=== PATIENT | female | born 1970 | race Two or more races ===

== ENCOUNTER 2020-03-14 08:38 | Emergency (ER) | payer MEDICAID, SELFPAY ==
[2020-03-14 08:45] VITALS: BP 118/61; PULSE 81; RESP 17; TEMP 36.4; O2SAT 100; BMI 23.3
--- NOTE | 2020-03-14 08:48 | XR_ITS ---
EXAMINATION: XR ANKLE, RIGHT CLINICAL INFORMATION: Sprained ankle. Pain. COMPARISON: None TECHNIQUE: AP, lateral, and mortise views of the right ankle. FINDINGS: There is a small avulsion fracture tip of lateral malleolus with moderate lateral malleolar soft tissue swelling. No additional fractures seen. The ankle mortise and subtalar joints are normal. XR/XR ankle RT min 3V IMPRESSION: Small avulsion fracture tip of lateral malleolus with moderate lateral malleolar soft tissue swelling.
[2020-03-14] MEDS: Ibuprofen 600 MG TABLET PO (08:59)
--- NOTE | 2020-03-14 09:03 | ED.LOWEXIN ---
HPI - Extremity Injury (Lower) General Chief Complaint: Extremity Injury, Lower Stated Complaint: ankle injury Time Seen by Provider: 03/14/20 08:45 Source: patient Mode of arrival: ambulatory Limitations: no limitations History of Present Illness HPI Narrative: patient comes to emergency room complaining of right-sided ankle pain. 2 hours prior to arrival patient was walking down her basement, missed a step and sprain her ankle. Patient has been unable to bear weight since then. Patient states she had to drag herself up the stairs, called her and brought her to the emergency room. Patient denies hitting her head, no loss of consciousness, patient denies being on blood thinners. Related Data Previous Rx's Medication Instructions Recorded acetaminophen [Tylenol] 650 mg PO Q6H PRN #14 tab 03/14/20 Allergies Allergy/AdvReac Type Severity Reaction Status Date / Time indomethacin [From INDOCIN] Allergy Unknown RASH Verified 03/14/20 08:48 Review of Systems Review of Systems: Constitutional : No Weight loss, No Fever, No Chills, No Night Sweats, No Fatigue, No Malaise ENT/Mouth : No Hearing loss, No Ear Pain, No Nasal Congestion, No Sinus Pain, No Hoarseness, No sore throat, No Rhinorrhea, No Swallowing Difficulty Eyes: No Eye Pain, No Swelling, No Redness, No Foreign Body, No Discharge, No Vision Changes Cardiovascular : No Chest Pain, No SOB, No Dyspnea on Exertion, No Orthopnea, No Edema, No Palpitations Respiratory : No Cough, No Sputum, No Wheezing, No Smoke Exposure, No Dyspnea Gastrointestinal : No Nausea, No Vomiting, No Diarrhea, No Constipation, No abdominal Pain, No Hematochezia, No Melena Genitourinary : no irregular bleeding, No Dysuria, No Urinary Frequency, No Hematuria, No Urinary Incontinence, No Urgency, No Flank Pain, No Urinary Flow Changes, No Hesitancy Musculoskeletal : Right ankle pain and mild swelling Skin : No Skin Lesions, No rash Neuro : No Weakness, No Numbness, No Paresthesias, No Loss of Consciousness, No Dizziness, No Headache Psych : No Anxiety/Panic, No Depression, No SI/HI/AH/VH, No Social Issues, Heme/Lymph: No Bruising, No Bleeding,No Lymphadenopathy Endocrine : No Polyuria, No Polydipsia, No Temperature Intolerance Yes Unobtainable due to mental status PMFSH Past Medical History Medical History Arthritis Social History Social History Advance Directives: No Advance Directives Information Provided: No Physical Exam Vital Signs: Vital Signs: Vital Signs Temp Pulse Resp BP Pulse Ox 03/14/20 08:45 97.6 F 81 17 118/61 100 Body Mass Index 23.3 Appearance: Alert. Oriented X3. No acute distress. Eyes: Pupils equal, round and reactive to light. ENT: Pharynx normal. Neck: Normal inspection. Neck supple. No lymph nodes noted. No crepitus CVS: Normal heart rate and rhythm. Pulses normal. Normal S1 and S2 Respiratory: No respiratory distress. Breath sounds normal. No Wheezing. No rales Abdomen: Soft and nontender. No rigidity. No distention. good BS x4 Skin: Skin warm and dry. Normal skin color. Normal skin turgor. Extremities: right ankle swelling on the lateral side, pain to palpation over the lateral malleolus, unable to bear weight Neuro: Oriented X 3. No motor deficit. No sensory deficit. Moving all extermities. No slurred speech. Course Reevaluation(s) Reevaluation #1: I discussed with the patient that she has a small avulsion fracture at the tip of the lateral malleolus. MDM - Extremity Injury (Lower) MDM Narrative Medical decision making narrative: patient will be discharged home with instructions to follow up with Orthopedics, Tylenol and ibuprofen. Patient was placed in a posterior splint, provided with crutches Imaging Data Ankle x-ray: Radiologist's impression: There is a small avulsion fracture tip of lateral malleolus with moderate lateral malleolar soft tissue swelling. No additional fractures seen. The ankle mortise and subtalar joints are normal. Discharge Plan Discharge Clinical Impression: Ankle fracture, lateral malleolus, closed Qualifiers: Encounter type: initial encounter Fracture alignment: nondisplaced Laterality: right Qualified Code(s): S82.64XA - Nondisplaced fracture of lateral malleolus of right fibula, initial encounter for closed fracture Patient Disposition: Home, Self-Care Instructions: Ankle Fracture (ED) Additional Instructions: please call the orthopedics office to schedule an appointment. Please follow-up with your primary care physician tomorrow. If you have any worsening or new symptoms, please return to the emergency room or call 911 Prescriptions: New acetaminophen [Tylenol] 325 mg tablet 650 mg PO Q6H PRN (Reason: pain) Qty: 14 RF: 0 Referrals: Constantino Maya MD [Physician] - 2 days
== END 2020-03-14 11:22 | disposition home or self-care (01) ==
PROVIDERS: Emergency Provider Emergency Medicine
DX: S82.61XA Displaced fracture of lateral malleolus of right fibula, initial encounter for closed fracture (principal); W10.9XXA Fall (on) (from) unspecified stairs and steps, initial encounter; Y93.01 Activity, walking, marching and hiking; Y92.009 Unspecified place in unspecified non-institutional (private) residence as the place of occurrence of the external cause
CPT/HCPCS: 73610; 99282; 99283

== ENCOUNTER → 2020-03-20 13:38 | Outpatient (BNVA) | payer MEDICAID, SELFPAY | PROVIDERS: PCP Internal Medicine; Referring Provider Internal Medicine; Visit Provider Orthopaedic Surgery | DX: S82.61XD Displaced fracture of lateral malleolus of right fibula, subsequent encounter for closed fracture with routine healing (principal) | CPT/HCPCS: 99212 ==

== ENCOUNTER 2020-11-28 08:59 | Outpatient (REF) | payer MEDICAID, SELFPAY | END 2020-11-28 09:00 | disposition home or self-care (01) | LOC: HO.LAB 08:59 | PROVIDERS: PCP Internal Medicine; Visit Provider Obstetrics & Gynecology | DX: N90.7 Vulvar cyst (principal) | CPT/HCPCS: 10060; 56405; 87071; 87205 ==

== ENCOUNTER 2021-08-15 14:30 | Outpatient (REF) | payer MEDICAID, SELFPAY ==
[2021-08-15 15:44] LABS: Hematocrit 32.1 % (37.0-47.0); Hemoglobin 9.8 g/dl (12.0-16.0); Mean Corpuscular HGB Conc 30.5 g/dl (31.0-35.0); Mean Corpuscular Hemoglobin 23.9 pg (27.0-33.0); Mean Corpuscular Volume 78.3 fL (80.0-98.0); Mean Platelet Volume 10.9 fL (9.4-12.3); Platelet Count 246 X10*3/uL (160-400); Red Cell Distribution Width 14.5 % (11.0-16.0); White Blood Count 7.2 X10*3/uL (4.8-10.8)
[2021-08-15 16:47] LABS: HCG Quantitative < 2 mIU/mL; TSH reflex Free T4 2.36 uIU/mL (0.32-4.0)
[2021-08-16 06:57] LABS: CT PCR NOT DETECTED (Not Detect.); NG PCR NOT DETECTED (Not Detect.)
[2021-08-20 21:02] LABS: HPV mRNA E6/E7 rflx Not Detected (Not Detected)
== END 2021-08-15 14:31 | disposition home or self-care (01) ==
LOC: HO.LAB 14:30
PROVIDERS: PCP Internal Medicine; Visit Provider Obstetrics & Gynecology
DX: Z01.411 Encounter for gynecological examination (general) (routine) with abnormal findings (principal); Z11.51 Encounter for screening for human papillomavirus (HPV); N93.9 Abnormal uterine and vaginal bleeding, unspecified
CPT/HCPCS: 36415; 84443; 84702; 85027; 87491; 87591; 87624; 88142; 99212

== ENCOUNTER 2021-08-28 09:10 | Outpatient (REF) | payer MEDICAID, SELFPAY | END 2021-08-28 09:11 | disposition home or self-care (01) | LOC: HO.LAB 09:10 | PROVIDERS: PCP Internal Medicine; Visit Provider Obstetrics & Gynecology | DX: N93.9 Abnormal uterine and vaginal bleeding, unspecified (principal) | CPT/HCPCS: 58100; 81025; 88305 ==

== ENCOUNTER 2021-09-10 11:17 | Outpatient (REF) | payer MEDICAID, SELFPAY ==
--- NOTE | ~2021-09-10 | US_ITS ---
EXAMINATION: US PELVIS CLINICAL INFORMATION: Abnormal uterine and vaginal bleeding COMPARISON: None TECHNIQUE: Ultrasound of the pelvis is performed using both transabdominal and transvaginal transducers along with Doppler. Transvaginal imaging is performed due to inadequate visualization transabdominally. FINDINGS: Uterus: The uterus is anteverted, anteflexed and measures 9.4 x 5.1 x 6.8 cm The double wall endometrial thickness is 1.1 CM. The uterus is smooth in contour and has normal myometrial echogenicity. There are 2 hypoechoic lesions in lower anterior uterine body measuring 2.8 x 3.6 x 2.9 cm and 0.6 x 0.6 x 0.7 seen. There are small nabothian cysts seen in cervix. Adnexa: Both ovaries are visualized. There is normal color flow to the adnexa. There is no ovarian torsion. There is no pelvic ascites or fluid collection. Right ovary measures 2.0 x 1.3 x 1.4 CM and volume 1.9 mL. Left ovary measures 2.1 x 1.4 x 1.5 cm and volume 2.3 mL. US/US pelvic and transvaginal IMPRESSION: 2 uterine fibroids and lower anterior uterine body as described above. The ovaries are unremarkable. Small nabothian cysts seen in cervix.
== END 2021-09-10 11:18 | disposition home or self-care (01) ==
LOC: HO.US 11:17
PROVIDERS: Visit Provider Obstetrics & Gynecology
DX: N93.9 Abnormal uterine and vaginal bleeding, unspecified (principal)
CPT/HCPCS: 76830; 76856

== ENCOUNTER → 2021-09-13 09:49 | Outpatient (BNVA) | payer MEDICAID, SELFPAY | PROVIDERS: PCP Internal Medicine; Visit Provider Obstetrics & Gynecology | DX: N93.9 Abnormal uterine and vaginal bleeding, unspecified (principal); N88.8 Other specified noninflammatory disorders of cervix uteri | CPT/HCPCS: 99212 ==

== ENCOUNTER 2021-12-31 08:47 | Outpatient (REF) | payer MEDICAID, SELFPAY ==
--- NOTE | ~2021-12-31 | MM_ITS ---
EXAMINATION: MM SCREENING DIGITAL BREAST TOMOSYNTHESIS, BILATERAL CLINICAL INFORMATION: Screening. Asymptomatic. The lifetime risk of breast cancer based on the Tyrer-Cuzick Model is 8%. COMPARISON: Mammography: 11/24/2017, 10/29/2016, 09/18/2015, 07/15/2015 TECHNIQUE: Digital breast tomosynthesis is performed in both the craniocaudal and mediolateral oblique views along with computer-aided detection (CAD). Synthesized 2D images are generated from the tomosynthesis. Additional right exaggerated CC view is provided. FINDINGS: The breasts are heterogeneously dense, which may obscure small masses (ACR BI-RADS breast composition Category c). There are no significant masses, abnormal calcifications, or other abnormalities. The axilla and skin contours are unremarkable. Biopsy clip marker again noted posterior upper right breast. There are no significant changes from prior studies. MM/MM tomosynthesis screening BI IMPRESSION: No mammographic evidence of malignancy. ASSESSMENT: BI-RADS 1: Negative RECOMMENDATION: Routine annual mammography screening. This patient's information was entered into a reminder system with a target due date for their next mammogram.
== END 2021-12-31 08:48 | disposition home or self-care (01) ==
LOC: HO.MAMMO 08:47
PROVIDERS: Visit Provider Obstetrics & Gynecology
DX: Z12.31 Encounter for screening mammogram for malignant neoplasm of breast (principal)
CPT/HCPCS: 77063; 77067

== ENCOUNTER 2022-06-12 12:22 | Outpatient (REF) | payer MEDICAID, SELFPAY ==
--- NOTE | ~2022-06-12 | US_ITS ---
EXAMINATION: US PELVIS CLINICAL INFORMATION: Benign neoplasm of connective tissue COMPARISON: Ultrasound 09/10/2021 TECHNIQUE: Ultrasound of the pelvis is performed using both transabdominal and transvaginal transducers along with Doppler. Transvaginal imaging is performed due to inadequate visualization transabdominally. FINDINGS: Uterus: The uterus is anteverted and measures 12 x 5.6 x 7.8 cm. Both hands cysts are noted. The double wall endometrial thickness is 15 mm. The uterus is smooth in contour and has normal myometrial echogenicity. Lower uterine segment myometrial fibroids are again noted. The largest is relatively isoechoic measuring 3.1 x 2.8 x 2.9 cm. There is an adjacent 0.7 cm fibroid. These are without significant change from prior. Adnexa: Both ovaries are visualized. There is normal color flow to the adnexa. There is no ovarian torsion. Trace pelvic free fluid. Right ovary measures 2.5 x 1.9 x 1.6 cm. Left ovary measures 3.1 x 3.2 x 3.3 cm. Probable hemorrhagic cyst measuring 2.4 x 2.3 x 2.1 cm. There is some peripheral nodularity which could be blood products. US/US pelvic and transvaginal IMPRESSION: Thickening of the endometrium. Correlate with phase of cycle as this may be physiologic. Unchanged uterine fibroids. Complex left ovarian cyst with some peripheral nodularity. This could be a hemorrhagic cyst, but cannot exclude soft tissue. Suggest ultrasound follow-up in 6-12 weeks.
== END 2022-06-12 12:23 | disposition home or self-care (01) ==
LOC: HO.US 12:22
PROVIDERS: PCP Internal Medicine; Visit Provider Obstetrics & Gynecology
DX: D21.9 Benign neoplasm of connective and other soft tissue, unspecified (principal)
CPT/HCPCS: 76830; 76856

== ENCOUNTER 2022-07-22 14:23 | Outpatient (REF) | payer MEDICAID, SELFPAY ==
[2022-07-23 03:13] LABS: CT PCR NOT DETECTED (Not Detect.); NG PCR NOT DETECTED (Not Detect.)
== END 2022-07-22 14:24 | disposition home or self-care (01) ==
LOC: HO.LNP 14:23
PROVIDERS: PCP Internal Medicine; Visit Provider Obstetrics & Gynecology
DX: N83.299 Other ovarian cyst, unspecified side (principal); D21.9 Benign neoplasm of connective and other soft tissue, unspecified
CPT/HCPCS: 0353U; 99212

== ENCOUNTER 2022-09-23 14:04 | Outpatient (REF) | payer MEDICAID, SELFPAY ==
--- NOTE | ~2022-09-23 | US_ITS ---
EXAMINATION: US PELVIC AND TRANSVAGINAL CLINICAL INFORMATION: Ovarian cyst. COMPARISON: Previous pelvic ultrasound most recent May 2022. TECHNIQUE: Ultrasound of the pelvis is performed using both transabdominal and transvaginal transducers along with Doppler. Transvaginal imaging is performed due to inadequate visualization transabdominally. FINDINGS: The uterus is anteverted and measures 11.5 x 5.8 x 8.1 cm in dimension. There is a 3.5 cm low-attenuation lesion in the anterior uterine body or lower uterine segment adjacent to the endometrium suggestive of a fibroid. There is a second smaller 1.3 cm low-attenuation lesion in the anterior lower uterine segment also probably representing a fibroid. Endometrial thickness is normal measuring 1.1 x 1.2 cm. There are nabothian cysts in the cervix. The ovaries are normal-appearing. The right ovary measures 3.2 x 1.8 x 1.5 cm. The left ovary is seen transabdominally and measures 2.5 x 1.5 x 2.9 cm. The previously identified left ovarian cyst on May 2022 is no longer seen. There is a small amount of fluid in the pelvis. US/US pelvic and transvaginal IMPRESSION: Small uterine fibroids. Normal-appearing ovaries. Left ovarian cyst on May 2022 exam is no longer seen.
== END 2022-09-23 14:05 | disposition home or self-care (01) ==
LOC: HO.US 14:04
PROVIDERS: Visit Provider Obstetrics & Gynecology
DX: N83.299 Other ovarian cyst, unspecified side (principal)
CPT/HCPCS: 76830; 76856

== ENCOUNTER 2022-09-24 10:40 | Emergency (ER) | payer MEDICAID, SELFPAY ==
--- NOTE | ~2022-09-24 | CT_ITS ---
EXAMINATION: CT ABDOMEN AND PELVIS WITHOUT CONTRAST CLINICAL INFORMATION: Left flank pain and hematuria COMPARISON: Previous pelvic ultrasound from yesterday and abdominal and pelvic CT from 2016 TECHNIQUE: Multidetector volumetric imaging was performed from the superior aspect of the liver through the pubic symphysis. Sagittal and coronal reformatted images were obtained on the technologist's workstation. This CT examination was performed using dose optimization techniques as appropriate, variously including the following: *Automated exposure control *Adjustment of mA and/or kV according to patient size (this includes techniques or standardized protocols for targeted exams where dose is matched to indication/reason for exam; i.e. extremities or head) *Use of iterative reconstruction technique DLP: 392 mGy-cm FINDINGS: LUNG BASES: Atelectasis or small infiltrate in the right middle lobe. LIVER, GALLBLADDER, AND BILIARY TREE: The liver is normal in size, shape, and attenuation. No focal hepatic lesion or biliary ductal dilatation is present. The gallbladder is unremarkable with no evidence of radiopaque gallstones, gallbladder wall thickening, or obvious pericholecystic inflammatory changes. PANCREAS: Unremarkable. SPLEEN: Unremarkable. ADRENAL GLANDS: Unremarkable. KIDNEYS AND URETERS: Small punctate right renal stones. No left renal stone. No left hydronephrosis, ureteral dilatation or ureteral stone. BLADDER: Unremarkable. GASTROINTESTINAL TRACT: There is stool throughout the colon questionable for mild constipation. The small and large bowel are otherwise unremarkable. The appendix is not seen. No inflammatory changes are seen in the right lower quadrant. There may be a small esophageal hernia. ABDOMINAL WALL: No significant hernia is appreciated. LYMPH NODES: Normal. VASCULAR: Unremarkable. PELVIC VISCERA: Unremarkable. OSSEOUS STRUCTURES: Unremarkable. CT/CT abdomen pelvis wo IV con IMPRESSION: Multiple small nonobstructing right renal stones. No left renal stone or hydronephrosis seen. Large amount of stool in the colon questionable for constipation. Atelectasis or small infiltrate in the right middle lobe. Fleischner guidelines were followed.
[2022-09-24 11:00] VITALS: BP 132/72; PULSE 84; RESP 16; TEMP 36.5; O2SAT 100; BMI 25.6
[2022-09-24 11:24] LABS: Appearance Urine Hazy; Color Urine RED; Glucose Urine UA Negative (Negative); Leukocyte Esterase Urine Large (3+) (Negative); Nitrite Urine Negative (Negative); Specific Gravity - Urine <= 1.005 (1.005-1.025); UMIC TRIGGER UACC YES; Urine Blood Large (3+) (Negative); Urine Ketones Negative (Negative); Urine Protein 100 (2+) mg/dL (Neg-Trace)
[2022-09-24 11:31] LABS: Bacteria Urine Trace (None Seen); Hyaline Casts Urine 0-2 /LPF (0-2); RBC Urine >20 /HPF (0-2); Squamous Epithelial Cell Urine 0-2 /HPF (0-2); UACC Culture Trigger YES; WBC Urine >50 /HPF (0-5)
[2022-09-24 12:53] LABS: MANUAL DIFF FLAG NO
[2022-09-24 12:55] LABS: Basophils Percent Auto 0.3 % (0-2); Eosinophils Absolute Auto 0.2 X10*3/uL (0.0-0.4); Eosinophils Percent Auto 1.3 % (0-4); Hematocrit 34.8 % (37.0-47.0); Imm Gran Abs Auto 0.03 X10*3/uL (0.00-0.03); Imm Gran Pct Auto 0.3 % (0.0-0.4); Lymphocytes Absolute Auto 1.6 X10*3/uL (1.2-4.9); Lymphocytes Percent Auto 13.5 % (20-40); Mean Corpuscular HGB Conc 31.6 g/dl (31.0-35.0); Mean Corpuscular Hemoglobin 25.2 pg (27.0-33.0); Mean Corpuscular Volume 79.8 fL (80.0-98.0); Mean Platelet Volume 10.6 fL (9.4-12.3); Monocytes Absolute Auto 0.7 X10*3/uL (0.1-1.2); Neutrophils Absolute Auto 9.1 x10*3/uL (2.0-8.3); Neutrophils Percent Auto 78.6 % (45-73); Platelet Count 247 X10*3/uL (160-400); Red Blood Count 4.36 X10*6/uL (4.20-5.50); Red Cell Distribution Width 14.1 % (11.0-16.0); White Blood Count 11.5 X10*3/uL (4.8-10.8)
[2022-09-24 13:08] LABS: Anion Gap 13 (12-20); Blood Urea Nitrogen 14 mg/dL (9-16); Calcium 9.4 mg/dL (8.4-10.2); Carbon Dioxide 26 mmol/L (22-29); Chloride 105 mmol/L (96-108); Creatinine Clr Calc Pharmacy 70.2; Estimated Glomerular Filt Rate > 60; Glucose Random 84 mg/dL (60-115); Potassium 4.5 mmol/L (3.3-5.1); Sodium 139 mmol/L (135-145)
[2022-09-24 13:11] LABS: Alanine Aminotransferase 12 U/L (0-31); Albumin Level 4.3 g/dL (3.5-5.0); Alkaline Phosphatase 48 U/L (39-117); Aspartate Amino Transferase 16 U/L (5-31); Bilirubin Direct 0.1 mg/dL (0.0-0.5); Bilirubin Total 0.3 mg/dL (0.0-1.0); Lipase 14 U/L (8-78); Magnesium 1.8 mg/dL (1.6-2.6); Total Protein 7.1 g/dL (6.5-8.0)
--- NOTE | 2022-09-24 18:08 | ED_ITS ---
HPI - General Adult General Chief complaint: Abdominal Pain Stated complaint: Abd pain Time Seen by Provider: 09/24/22 17:45 Source: patient, RN notes reviewed and old records reviewed Mode of arrival: ambulatory Limitations: no limitations History of Present Illness HPI narrative: 52-year-old female presents for evaluation of left flank pain, lower abdominal pain. patient reports that her symptoms started 3 days ago but got worse last night. She reports her pain is worse with urination and she has noticed blood in the urine denies any vaginal bleeding or discharge patient denies any previous abdominal surgical history her pain is 6/ Related Data Previous Rx's Medication Instructions Recorded acetaminophen 325 mg tablet 650 mg PO Q6H PRN pain #14 tabs 03/14/20 (Tylenol) ferrous sulfate 325 mg (65 mg 325 mg PO DAILY 90 days #90 tabs 09/06/21 iron) tablet,delayed release nitrofurantoin 100 mg PO Q12H 5 days #10 caps 09/24/22 monohydrate/macrocrystals 100 mg capsule (Macrobid) phenazopyridine 200 mg tablet 200 mg PO TID 6 doses #6 tabs 09/24/22 (Pyridium) Allergies Allergy/AdvReac Type Severity Reaction Status Date / Time indomethacin [From INDOCIN] Allergy Unknown RASH Verified 07/22/22 14:32 Review of Systems Constitutional: Constitutional: Reports as per HPI, Denies chills, Denies fever(s) and Denies headache(s) ENT: Denies headache(s) Cardiovascular: Cardiovascular: Denies chest pain and Denies dyspnea Respiratory: Respiratory: Denies cough and Denies dyspnea Gastrointestinal: Gastrointestinal: Reports abdominal pain, Denies constipation and Reports nausea Neurologic: Denies headache(s) and Denies focal weakness PMFSH Past Medical History Medical History Arthritis Fibula fracture Surgical History History of lumpectomy Tubal ligation status Family History Family History Father No problems noted. Mother No problems noted. Social History Social History Advance Directives: No Advance Directives Information Provided: Yes Current occupational status: unemployed Current occupation: right handed Physical Exam ED Vital Signs: Vital Signs - 24 hr 09/24/22 11:00 09/24/22 18:19 09/24/22 20:12 Temperature 97.7 F 98.6 F 98.7 F Pulse Rate 84 74 83 Respiratory Rate 16 16 16 Blood Pressure 132/72 121/66 112/71 Pulse Oximetry 100 99 96 Oxygen Delivery Method Room Air Room Air BMI result Body Mass Index 25.6 Const General: healthy appearing, comfortable, no acute distress, alert and awake Nutritional Appearance: well nourished Orientation/consciousness: patient oriented x3 HENMT Head: Yes normocephalic and Yes atraumatic Throat: Yes posterior oropharynx normal Eyes Eyelids: Yes eyelids normal Conjunctivae: conjunctivae normal Sclerae: sclerae normal Corneas: corneas normal Pupils: Equal, round and reactive pupils present EOM: EOMs intact bilaterally Neck Neck: Yes full ROM Resp Effort & Inspection: normal respiratory effort, able to speak in complete sentences, no audible wheezes and not labored Auscultation: clear to auscultation bilaterally Cardio Rate: regular rate Rhythm: regular rhythm GI Other: negative CVA tenderness on left Palpation (GI): Soft to palpation, Tenderness to palpation present (GI) in the LLQ and suprapubicly; not in the RLQ, not in the LUQ, not in the RUQ and with no rebound tenderness and no guarding Auscultation: normoactive bowel sounds Skin General skin exam: no rashes or lesions noted and elasticity normal Neuro General: patient oriented x3 Cranial nerves: Yes Equal, round and reactive pupils present and Yes Bilaterally intact EOM present Cognition (Neuro): normal cognition Extrem Other: Moving all extremities well without any obvious deformities Course Reevaluation(s) Reevaluation #1: reviewed patient's CT imaging. She has no respiratory symptoms to suggest infiltrate the middle lobe, this is likely atelectasis. Will discuss constipation with her in up to her and CT imaging results. We will treat the patient's UTI and she is stable for discharge Time: 21:07 Medical Decision Making Medical Decision Making MDM Narrative: 52-year-old female presents for evaluation of burning with urination, urinary frequency and lower abdominal pain. Her labs are consistent with a UTI. will get a CT without contrast item pelvis to rule out obstructive uropathy given the amount of hematuria. Differential Diagnosis UTI Pyelonephritis Obstructive uropathy Cystitis Lab Data 09/24/22 12:47 09/24/22 12:47 Labs: Lab Results 09/24/22 09/24/22 09/24/22 Range/Units 11:16 12:47 12:47 WBC 11.5 H (4.8-10.8) X10*3/uL RBC 4.36 (4.20-5.50) X10*6/uL Hgb 11.0 L (12.0-16.0) g/dl Hct 34.8 L (37.0-47.0) % MCV 79.8 L (80.0-98.0) fL MCH 25.2 L (27.0-33.0) pg MCHC 31.6 (31.0-35.0) g/dl RDW 14.1 (11.0-16.0) % Plt Count 247 (160-400) X10*3/uL MPV 10.6 (9.4-12.3) fL Immature Gran % (Auto) 0.3 (0.0-0.4) % Neut % (Auto) 78.6 H (45-73) % Lymph % (Auto) 13.5 L (20-40) % [place] % (Auto) 6.0 (2-11) % Eos % (Auto) 1.3 (0-4) % Baso % (Auto) 0.3 (0-2) % Lymph # (Auto) 1.6 (1.2-4.9) X10*3/uL [place] # (Auto) 0.7 (0.1-1.2) X10*3/uL Eos # (Auto) 0.2 (0.0-0.4) X10*3/uL Baso # (Auto) 0.0 (0.0-0.2) X10*3/uL Abs Immat Gran (auto) 0.03 (0.00-0.03) X10*3/uL Absolute Neuts (auto) 9.1 H (2.0-8.3) x10*3/uL Absolute Nucleated RBC 0.000 (0.0-0.012) X10*3/uL Nucleated RBC % (auto) 0.0 (0.0-0.2) /100WBC Sodium 139 (135-145) mmol/L Potassium 4.5 (3.3-5.1) mmol/L Chloride 105 (96-108) mmol/L Carbon Dioxide 26 (22-29) mmol/L Anion Gap 13 (12-20) BUN 14 (9-16) mg/dL Creatinine 0.81 (0.5-1.4) mg/dL Estim Creat Clear Calc 70.2 Estimated GFR > 60 Random Glucose 84 (60-115) mg/dL Calcium 9.4 (8.4-10.2) mg/dL Magnesium (1.6-2.6) mg/dL Total Bilirubin (0.0-1.0) mg/dL Direct Bilirubin (0.0-0.5) mg/dL AST (5-31) U/L ALT (0-31) U/L Alkaline Phosphatase (39-117) U/L Total Protein (6.5-8.0) g/dL Albumin (3.5-5.0) g/dL Lipase (8-78) U/L Urine Color RED Urine Appearance Hazy Urine pH 6.0 (5.0-9.0) Ur Specific [place] <= 1.005 (1.005-1.025) Urine Protein 100 (2+) H (Neg-Trace) mg/dL Urine Glucose (UA) Negative (Negative) mg/dL Urine Ketones Negative (Negative) mg/dL Urine Blood Large (3+) H (Negative) Urine Nitrite Negative (Negative) Ur Leukocyte Esterase Large (3+) H (Negative) Urine RBC >20 H (0-2) /HPF Urine WBC >50 H (0-5) /HPF Ur Squamous Epith Cells 0-2 (0-2) /HPF Urine Bacteria Trace (None Seen) Hyaline Casts 0-2 (0-2) /LPF 09/24/22 Range/Units 12:47 WBC (4.8-10.8) X10*3/uL RBC (4.20-5.50) X10*6/uL Hgb (12.0-16.0) g/dl Hct (37.0-47.0) % MCV (80.0-98.0) fL MCH (27.0-33.0) pg MCHC (31.0-35.0) g/dl RDW (11.0-16.0) % Plt Count (160-400) X10*3/uL MPV (9.4-12.3) fL Immature Gran % (Auto) (0.0-0.4) % Neut % (Auto) (45-73) % Lymph % (Auto) (20-40) % [place] % (Auto) (2-11) % Eos % (Auto) (0-4) % Baso % (Auto) (0-2) % Lymph # (Auto) (1.2-4.9) X10*3/uL [place] # (Auto) (0.1-1.2) X10*3/uL Eos # (Auto) (0.0-0.4) X10*3/uL Baso # (Auto) (0.0-0.2) X10*3/uL Abs Immat Gran (auto) (0.00-0.03) X10*3/uL Absolute Neuts (auto) (2.0-8.3) x10*3/uL Absolute Nucleated RBC (0.0-0.012) X10*3/uL Nucleated RBC % (auto) (0.0-0.2) /100WBC Sodium (135-145) mmol/L Potassium (3.3-5.1) mmol/L Chloride (96-108) mmol/L Carbon Dioxide (22-29) mmol/L Anion Gap (12-20) BUN (9-16) mg/dL Creatinine (0.5-1.4) mg/dL Estim Creat Clear Calc Estimated GFR Random Glucose (60-115) mg/dL Calcium (8.4-10.2) mg/dL Magnesium 1.8 (1.6-2.6) mg/dL Total Bilirubin 0.3 (0.0-1.0) mg/dL Direct Bilirubin 0.1 (0.0-0.5) mg/dL AST 16 (5-31) U/L ALT 12 (0-31) U/L Alkaline Phosphatase 48 (39-117) U/L Total Protein 7.1 (6.5-8.0) g/dL Albumin 4.3 (3.5-5.0) g/dL Lipase 14 (8-78) U/L Urine Color Urine Appearance Urine pH (5.0-9.0) Ur Specific [place] (1.005-1.025) Urine Protein (Neg-Trace) mg/dL Urine Glucose (UA) (Negative) mg/dL Urine Ketones (Negative) mg/dL Urine Blood (Negative) Urine Nitrite (Negative) Ur Leukocyte Esterase (Negative) Urine RBC (0-2) /HPF Urine WBC (0-5) /HPF Ur Squamous Epith Cells (0-2) /HPF Urine Bacteria (None Seen) Hyaline Casts (0-2) /LPF Discharge Plan Discharge Clinical Impression: UTI (urinary tract infection), Constipation Patient Disposition: Home, Self-Care Instructions: Urinary Tract Infection in Women (ED) Additional Instructions: your urine sample shows a urinary tract infection take the antibiotics as prescribed and take the Pyridium for discomfort your CT scan also showed a moderate amount of constipation you should consider increasing fluid and fiber intake in your diet you may use an [id number] stool softener such as MiraLax follow-up with your primary doctor Prescriptions: New nitrofurantoin monohyd/m-cryst [Macrobid] 100 mg capsule 100 mg PO Q12H 5 Days Qty: 10 0RF Rx Instructions: must administer with a meal/food phenazopyridine [Pyridium] 200 mg tablet 200 mg PO TID Qty: 6 0RF No Action ferrous sulfate 325 mg (65 mg iron) tablet,delayed release (DR/EC) 325 mg PO DAILY 90 Days Qty: 90 3RF acetaminophen [Tylenol] 325 mg tablet 650 mg PO Q6H PRN (Reason: pain) Qty: 14 0RF
[2022-09-24 18:19] VITALS: BP 121/66; PULSE 74; RESP 16; TEMP 37; O2SAT 99
[2022-09-24 20:12] VITALS: BP 112/71; PULSE 83; RESP 16; TEMP 37.1; O2SAT 96
== END 2022-09-24 21:30 | disposition home or self-care (01) ==
PROVIDERS: Physician Assistant; Emergency Provider Internal Medicine
DX: N39.0 Urinary tract infection, site not specified (principal); B96.20 Unspecified Escherichia coli [E. coli] as the cause of diseases classified elsewhere; K59.00 Constipation, unspecified; R10.9 Unspecified abdominal pain
CPT/HCPCS: 36415; 74176; 80048; 80076; 81001; 83690; 83735; 85025; 87086; 87088; 87186; 99283; 99284

== ENCOUNTER → 2022-10-07 15:05 | Outpatient (BNVA) | payer MEDICAID, SELFPAY | PROVIDERS: Visit Provider Obstetrics & Gynecology | DX: D21.9 Benign neoplasm of connective and other soft tissue, unspecified (principal); Z87.42 Personal history of other diseases of the female genital tract | CPT/HCPCS: 99212 ==

== ENCOUNTER 2022-10-30 10:12 | Outpatient (REF) | payer MEDICAID, SELFPAY | END 2022-10-30 10:13 | disposition home or self-care (01) | LOC: HO.LNP 10:12 | PROVIDERS: PCP Nurse Practitioner Family; Visit Provider Obstetrics & Gynecology | DX: N93.9 Abnormal uterine and vaginal bleeding, unspecified (principal); Z32.02 Encounter for pregnancy test, result negative | CPT/HCPCS: 58100; 81025; 88305 ==

== ENCOUNTER → 2022-11-20 10:38 | Outpatient (BNVA) | payer MEDICAID, SELFPAY | PROVIDERS: PCP Nurse Practitioner Family; Visit Provider Obstetrics & Gynecology | DX: N93.9 Abnormal uterine and vaginal bleeding, unspecified (principal); D21.9 Benign neoplasm of connective and other soft tissue, unspecified | CPT/HCPCS: 99212 ==

== ENCOUNTER 2023-01-03 09:00 | Outpatient (REF) | payer MEDICAID, SELFPAY ==
--- NOTE | ~2023-01-03 | MM_ITS ---
EXAMINATION: MM SCREENING DIGITAL BREAST TOMOSYNTHESIS, BILATERAL CLINICAL INFORMATION: Screening. Asymptomatic. COMPARISON: Mammography: This study is compared with prior exams dating back to 2017. TECHNIQUE: Digital breast tomosynthesis is performed in both the craniocaudal and mediolateral oblique views along with computer-aided detection (CAD). Synthesized 2D images are generated from the tomosynthesis. FINDINGS: The breasts are heterogeneously dense, which may obscure small masses (ACR BI-RADS breast composition Category c). There are no significant masses, abnormal calcifications, or other abnormalities. There is a biopsy tissue marker associated with an oval benign mass in the upper inner quadrant of the right breast. In the medial aspect of the left breast, there are grouped, coarse calcifications associated with a small benign mass. The this is financial representative of an involuting fibroadenoma. This is a benign entity. MM/MM tomosynthesis screening BI IMPRESSION: No mammographic evidence of malignancy. ASSESSMENT: BI-RADS BI-RADS 2 - Benign Findings RECOMMENDATION: Routine annual mammography screening. 1 year F/U This examination should not preclude the clinical evaluation of a suspicious palpable abnormality. This patient's information was entered into a reminder system with a target due date for their next mammogram.
== END 2023-01-03 09:01 | disposition home or self-care (01) ==
LOC: HO.MAMMO 09:00
PROVIDERS: PCP Obstetrics & Gynecology; Visit Provider Obstetrics & Gynecology
DX: Z12.31 Encounter for screening mammogram for malignant neoplasm of breast (principal)
CPT/HCPCS: 77063; 77067

== ENCOUNTER → 2023-01-03 09:15 | Outpatient (BNV) | payer MEDICAID, SELFPAY | PROVIDERS: PCP Obstetrics & Gynecology; Visit Provider Radiology Diagnostic Radiology | DX: Z12.31 Encounter for screening mammogram for malignant neoplasm of breast (principal) | CPT/HCPCS: 77063; 77067 ==

== ENCOUNTER 2023-03-03 13:12 | Outpatient (AMB) | payer MEDICAID, SELFPAY ==
--- NOTE | 2023-03-03 13:16 | A.OFFVIS_ITS ---
Intake Vital Signs 03/03/23 13:17 Height 5 ft 2 in Weight 138 lb BMI 25.2 BP 112/72 Intake Visit Reasons: Follow medication Date Night Sitter Required: Yes Date Night Sitter Language: Kennel Manager Dog Track Name: Francisca Bridges Allergies indomethacin [From INDOCIN] Allergy (Unknown, Verified 03/03/23 13:17) RASH Is last menstrual period known: No HPI HPI Comments History of Present Illness Details Presenting for 3 month follow-up, the patient did have her periods and did not start Provera. No other complaints PFSH Medical History Fibula fracture Arthritis Surgical History History of lumpectomy Tubal ligation status Family History Father No problems noted. Mother No problems noted. Social History Current occupational status: unemployed Current occupation: right handed Female Reproductive History Menstrual Age of Menarche: 9 control method: permanent sterilization Date of last pap smear: 08/17/21 (negative) Review of Systems Const All systems reviewed & are unremarkable except as noted in HPI and below Reports as per HPI and Reports no additional complaints GI Reports no additional complaints Reports no additional complaints Physical Exam Vital Signs: Last Vital Signs BP 112/72 03/03/23 13:17 BMI result Body Mass Index 25.2 Assessment & Plan Assessment & Plan (1) Myoma: Code(s): D21.9 - Benign neoplasm of connective and other soft tissue, unspecified Plan: Will order repeat ultrasound to compare the size the myomas. Instructions given the patient to schedule an ultrasound follow-up appointment in 2 weeks. (2) Amenorrhea: Code(s): N91.2 - Amenorrhea, unspecified Plan: Urine test done in the office was negative. Will order FSH/LH, TSH and prolactin and instructions given the patient to schedule a 2 week follow-up appointment. All questions answered, the patient verbalized understanding Orders: Orders Lutenizing Hormone Today N91.2 - Amenorrhea, unspecified TSH reflex Free T4 Today N91.2 - Amenorrhea, unspecified Prolactin Today N91.2 - Amenorrhea, unspecified US pelvic and transvaginal Today D21.9 - Benign neoplasm of connective and other soft tissue, unspecified, N91.2 - Amenorrhea, unspecified Follicle Stimulating Hormone Today N91.2 - Amenorrhea, unspecified HCG Quantitative Today N91.2 - Amenorrhea, unspecified Coding Level of Care Code Est Pt Level 3 (48748) Diagnoses Myoma D21.9 Amenorrhea N91.2
[2023-03-03 13:17] VITALS: BP 112/72; BMI 25.2
== END 2023-03-03 15:05 | disposition home or self-care (01) ==
PROVIDERS: PCP Obstetrics & Gynecology; Visit Provider Obstetrics & Gynecology
DX: D21.9 Benign neoplasm of connective and other soft tissue, unspecified (principal); N91.2 Amenorrhea, unspecified; Z32.02 Encounter for pregnancy test, result negative
CPT/HCPCS: 99213

== ENCOUNTER → 2023-03-03 13:12 | Outpatient (BNVA) | payer MEDICAID, SELFPAY | PROVIDERS: PCP Obstetrics & Gynecology; Visit Provider Obstetrics & Gynecology | DX: D21.9 Benign neoplasm of connective and other soft tissue, unspecified (principal); N91.2 Amenorrhea, unspecified; Z32.02 Encounter for pregnancy test, result negative | CPT/HCPCS: 81025; 99212 ==

== ENCOUNTER 2023-03-05 11:23 | Outpatient (REF) | payer MEDICAID, SELFPAY ==
[2023-03-05 12:53] LABS: HCG Quantitative < 2 mIU/mL; TSH reflex Free T4 2.55 uIU/mL (0.32-4.0)
[2023-03-06 12:43] LABS: CA-125 12 U/mL (<35); Follicle Stimulating Hormone 92.2 mIU/mL; Lutenizing Hormone 46.9 mIU/mL; Prolactin 5.9 ng/mL
== END 2023-03-05 11:24 | disposition home or self-care (01) ==
LOC: HO.LAB 11:23
PROVIDERS: Visit Provider Obstetrics & Gynecology
DX: N83.299 Other ovarian cyst, unspecified side (principal); N91.2 Amenorrhea, unspecified
CPT/HCPCS: 36415; 83001; 83002; 84146; 84443; 84702; 86304

== ENCOUNTER 2023-03-18 14:58 | Outpatient (REF) | payer MEDICAID, SELFPAY ==
--- NOTE | ~2023-03-18 | US_ITS ---
EXAMINATION: US PELVIS CLINICAL INFORMATION: Amenorrhea, abnormal uterine bleeding, complex cyst, myoma. Left lower quadrant pain. Last menstrual period 4 months ago. COMPARISON: 09/23/2022. TECHNIQUE: Ultrasound of the pelvis is performed using both transabdominal and transvaginal transducers along with Doppler. Transvaginal imaging is performed due to inadequate visualization transabdominally. FINDINGS: The uterus is heterogeneous, anteverted and measures 8.6 x 4.2 x 7.1 cm, uterine volume 125.61 mL. Uterine fibroid measures 3.0 x 2.6 x 3.0 cm, previously 3.0 x 3.2 x 3.3 cm. Previously identified 1.1 cm fibroid which is not visualized today. No significant free fluid. Right ovary measures 2.3 x 1.0 x 1.3 cm, volume 1.6 mL. Left ovary measures 2.0 x 1.0 x 1.4 cm, volume 1.5 mL. Bilateral ovaries are seen only on transabdominal ultrasound images and visualization is limited due to bowel gas. US/US pelvic and transvaginal IMPRESSION: 1. Fibroid uterus. 2. Limited visualization of bilateral ovaries. 3. Endometrial thickness is 0.8 cm.
== END 2023-03-18 14:59 | disposition home or self-care (01) ==
LOC: HO.US 14:58
PROVIDERS: Visit Provider Obstetrics & Gynecology
DX: D21.9 Benign neoplasm of connective and other soft tissue, unspecified (principal); N91.2 Amenorrhea, unspecified
CPT/HCPCS: 76830; 76856

== ENCOUNTER 2023-04-24 14:26 | Outpatient (AMB) | payer MEDICAID, SELFPAY ==
--- NOTE | 2023-04-24 14:29 | A.OFFVIS_ITS ---
Intake Vital Signs 04/24/23 14:31 Height 5 ft 2 in Weight 136 lb 10.986 oz BMI 25.0 BP 110/68 Intake Visit Reasons: Ultrasound results Optical Laboratory Mechanic Required: Yes Optical Laboratory Mechanic Language: International Exchange Coordinator Name: Francisca FELIPE Information Interpreted: non-clinical & clinical Accompanied by: Daughter Allergies indomethacin [From INDOCIN] Allergy (Unknown, Verified 04/24/23 14:32) RASH Post menopausal: Yes HPI HPI Comments History of Present Illness Details Presenting for follow-up. CA 125 within normal, TSH, prolactin hCG negative. FSH/LH elevated in the menopausal range Pelvic ultrasound showed the following: The uterus is heterogeneous, anteverted and measures 8.6 x 4.2 x 7.1 cm, uterine volume 125.61 mL. Uterine fibroid measures 3.0 x 2.6 x 3.0 cm, previously 3.0 x 3.2 x 3.3 cm. Previously identified 1.1 cm fibroid which is not visualized today. No significant free fluid. Right ovary measures 2.3 x 1.0 x 1.3 cm, volume 1.6 mL. Left ovary measures 2.0 x 1.0 x 1.4 cm, volume 1.5 mL. Bilateral ovaries are seen only on transabdominal ultrasound images and visualization is limited due to bowel gas. Mammogram was BI-RADS 2 [facility] Medical History Fibula fracture Arthritis Surgical History History of lumpectomy Tubal ligation status Family History Father No problems noted. Mother No problems noted. Social History Current occupational status: unemployed Current occupation: right handed Female Reproductive History Menstrual Age of Menarche: 9 Review of Systems Const All systems reviewed & are unremarkable except as noted in HPI and below Reports as per HPI and Reports no additional complaints GI Reports no additional complaints Reports no additional complaints Physical Exam Vital Signs: Last Vital Signs BP 110/68 04/24/23 14:31 BMI result Body Mass Index 25.0 Assessment & Plan Assessment & Plan (1) Menopausal state: Code(s): N95.1 - Menopausal and female climacteric states Plan: Discussed the patient the results of her FSH/LH elevated, diagnosis being menopause. (2) Post-menopausal bleeding: Code(s): N95.0 - Postmenopausal bleeding Plan: Discussed with the patient the pelvic ultrasound findings, the endometrial stripe thickenss measured by ultrasound was more than 4mm. The negative predictive value, positive predictive value, Sensitivity, specificity of using ultrasound measurement of endometrial stripe to detecting endometrial pathology including hyperplasia , polyp or cancer were discussed with the patient. Recommended to the patient that the next step is an endometrial sampling via hysteroscopy D&C possible polypectomy versus endometrial biopsy to r/o endometrial pathology including hyperplasia or cancer. All the pros and cons risks and benefits of each approach were discussed with the patient, endometrial biopsy being less invasive, office procedure with less sensitivity and inability diagnose a polyp and removal versus hysteroscopy done under anesthesia more invasive more sensitive to endometrial cancer and possibility of diagnosing and endometrial polyp with the possibility of polypectomy. All questions were answered pt verbalized understanding and decided to proceed with endometrial biopsy. The patient would like to schedule an EMB within few days. (3) Myoma: Code(s): D21.9 - Benign neoplasm of connective and other soft tissue, unspecified Plan: Discussed with the patient the findings on pelvic ultrasound & the risk of myosarcoma; discussed with the patient the options of treatment including expectant management versus hysterectomy; the pros and cons, risks benefits of each approach were discussed with the patient including the fact that in cases of myosarcoma, surgical treatment can lead to early diagnosis and positively affects the prognosis; after further discussion, the patient decided to proceed with expectant management. Will repeat pelvic ultrasound periodically. Instructions given to patient to call in case any of the following occurs: pressure symptoms, abnormal uterine bleeding, pelvic pain; and to schedule a future office follow-up appointment for reassessment and to order a repeat ult rasound . All questions answered, the patient verbalized understanding and agreed with the plan . Coding Level of Care Code Est Pt Level 3 (14476) Diagnoses Menopausal state N95.1 Post-menopausal bleeding N95.0 Myoma D21.9
[2023-04-24 14:31] VITALS: BP 110/68; BMI 25.0
== END 2023-04-24 14:52 | disposition home or self-care (01) ==
PROVIDERS: PCP Obstetrics & Gynecology; Visit Provider Obstetrics & Gynecology
DX: N95.1 Menopausal and female climacteric states (principal); N95.0 Postmenopausal bleeding; D21.9 Benign neoplasm of connective and other soft tissue, unspecified
CPT/HCPCS: 99213

== ENCOUNTER → 2023-04-24 14:26 | Outpatient (BNVA) | payer MEDICAID, SELFPAY | PROVIDERS: PCP Obstetrics & Gynecology; Visit Provider Obstetrics & Gynecology | DX: N95.1 Menopausal and female climacteric states (principal); N95.0 Postmenopausal bleeding; D21.9 Benign neoplasm of connective and other soft tissue, unspecified | CPT/HCPCS: 99212 ==

== ENCOUNTER 2023-04-28 13:49 | Outpatient (REF) | payer MEDICAID, SELFPAY | END 2023-04-28 13:50 | disposition home or self-care (01) | LOC: HO.LNP 13:49 | PROVIDERS: PCP Obstetrics & Gynecology; Visit Provider Obstetrics & Gynecology | DX: N95.0 Postmenopausal bleeding (principal) | CPT/HCPCS: 58100; 88305 ==

== ENCOUNTER 2023-04-28 13:49 | Outpatient (AMB) | payer MEDICAID, SELFPAY ==
[2023-04-28 14:07] VITALS: BP 110/62; BMI 25.0
--- NOTE | 2023-04-28 14:07 | MHC.OFFVIS ---
Intake Vital Signs 04/28/23 14:07 Height 5 ft 2 in Weight 136 lb 10.986 oz BMI 25.0 BP 110/62 Intake Visit Reasons: EMB Boat Repairer Required: Yes Boat Repairer Language: Human Services Care Specialist Name: Francisca FELIPE Information Interpreted: non-clinical & clinical Distillation Operator Helper: Distillation Operator Helper Present (Francisca FELIPE) Accompanied by: Daughter Allergies indomethacin [From INDOCIN] Allergy (Unknown, Verified 04/28/23 14:14) RASH Post menopausal: Yes HPI HPI Comments History of Present Illness Details Presenting for EMB regarding postmenopausal bleeding PFSH Medical History Fibula fracture Arthritis Surgical History History of lumpectomy Tubal ligation status Family History Father No problems noted. Mother No problems noted. Social History Current occupational status: unemployed Current occupation: right handed Female Reproductive History Menstrual Age of Menarche: 9 Physical Exam Vital Signs: BMI result Body Mass Index 25.0 Office Procedures Endometrial Biopsy Details: The patient was counseled regarding the indication and benefits of endometrial sampling to rule out endometrial pathology including not limited to endometrial hyperplasia or endometrial cancer and others; The alternatives (Either do nothing vs. hysteroscopy D&C) & the risks were discussed with the patient including but not limited: pain, uterine perforation, bleeding, infection, possible injury to bladder, bowel, ureter, possible need for blood transfusion with all its possible risks. The patient verbalized understanding all questions answered and signed consent. The patient was placed into the dorsal lithotomy position; a speculum was inserted in the vagina. Using aseptic technique for the procedure, the cervix was cleansed with Betadine. The anterior lip of the cervix was grasped with a single tooth tenaculum. The uterus was sounded to 7 cm with a 4 mm Pipelle was used. Tissues samples were obtained and placed in formalin, in a patient labeled container and sent to the pathology department. At the end of the procedure, there was minimal bleeding noted The patient tolerated the procedure well and was discharged in good condition with the following instructions: Nothing in the vagina until the bleeding stops. No sex until the bleeding stops, to call if any of the following occurs: fever (>100.4), flu-like symptoms, abdominal pain, heavy bleeding, four smelling vaginal discharge. The patient was instructed to schedule a Follow up appointment in 2 weeks to discuss pathology results of the biopsy and treatment options. This note was generated with a voice recognition program. Some errors may have been overlooked during the review of this note. Sometimes these errors may affect the content or meaning of a given sentence. [id number] Biopsy Assessment & Plan Assessment & Plan (1) Post-menopausal bleeding: Code(s): N95.0 - Postmenopausal bleeding Plan: EMB done, see procedure note Orders: Orders AMB Endometrial Biopsy Today N95.0 - Postmenopausal bleeding Coding Level of Care Code Procedure Only Diagnoses Post-menopausal bleeding N95.0 CPT Codes Endometrial Biopsy - CPT: 84121-Lzjssqmtrph Biopsy ([id number])
== END 2023-04-28 15:26 | disposition home or self-care (01) ==
PROVIDERS: PCP Obstetrics & Gynecology; Visit Provider Obstetrics & Gynecology
DX: N95.0 Postmenopausal bleeding (principal)
CPT/HCPCS: 58100

== ENCOUNTER 2023-06-10 08:30 | Outpatient (AMB) | payer MEDICAID, SELFPAY ==
--- NOTE | 2023-06-10 08:41 | MHC.OFFVIS ---
Intake Vital Signs 06/10/23 08:44 Height 5 ft 2 in Weight 136 lb 10.986 oz BMI 25.0 BP 120/68 Intake Visit Reasons: EMB results Slackline Operator Required: Yes Slackline Operator Language: Licensed Massage Therapist Name: Francisca FELIPE Information Interpreted: non-clinical & clinical Accompanied by: Self / Same As Patient Allergies indomethacin [From INDOCIN] Allergy (Unknown, Verified 06/10/23 08:45) RASH Post menopausal: Yes HPI HPI Comments History of Present Illness Details The patient is presenting after endometrial biopsy. The patient has no complaints, no vaginal bleeding, no feverishness chills or abdominal pain. Endometrial biopsy pathology showed the following: Endometrium, biopsy: Disordered proliferative endometrium; no atypia or hyperplasia identified [facility] Medical History Fibula fracture Arthritis Surgical History History of lumpectomy Tubal ligation status Family History Father No problems noted. Mother No problems noted. Social History Current occupational status: unemployed Current occupation: right handed Female Reproductive History Menstrual Age of Menarche: 9 Review of Systems Const All systems reviewed & are unremarkable except as noted in HPI and below Reports as per HPI and Reports no additional complaints GI Reports no additional complaints Reports no additional complaints Assessment & Plan Assessment & Plan (1) Post-menopausal bleeding: Comment: Proliferative endometrium Code(s): N95.0 - Postmenopausal bleeding Plan: Discussed with the patient the results of the pathology of the endometrial scrapings showing proliferative endometrium. Discussed with the patient the sensitivity, specificity, positive and negative predictive value, of endometrial biopsy in detecting endometrial pathology including but not limited to endometrial hyperplasia, cancer and other pathology; in addition discussed the patient the pathology of the endometrium in post menopause is associated with an increase in the risk of endometrial hyperplasia and malignancy in patient with preferred of endometrial pathology in menopause. Recommended to the patient progesterone treatment , levo norgestrel IUD or p.o. progestins in addition to repeat endometrial biopsy every 3 months for a year. All pros and cons, risks and benefits of each were discussed with the patient. The patient decided to proceed with Provera, so a more detailed discussion was conducted with the patient re: Progesterone treatment including mechanism of action, benefits ( endometrial protection form unopposed estrogen and reduction in the risk of endometrial hyperplasia and/or cancer ...), risks (Thrombosis, mood changes, weight gain, breast soreness, ? increased breast ca, others). Provera 10 mg po qd sent to the patient's pharmacy, instruction given to the pt to schedule her next screening mammogram in 01/05; in addition , recommended repeat endometrial biopsy every 3 months for 1 year. Instructed the patient to call in case is vaginal bleeding bleeding recurs, schedule endometrial biopsy in 3 months. All questions answered and the patient verbalized understanding and agreed with the plan. Medications: New medroxyprogesterone (Provera) start Provera 1 tablet daily 10 mg PO DAILY 90 tabs 3RF 90 days Discontinued medroxyprogesterone (Provera) start Provera 1 tablet daily from day 15-24 cyclically every months, day 1 being 1st day of menses Discontinued Reason: Doctor's Order 10 mg PO DAILY 30 tabs 1RF 10 days Coding Level of Care Code Est Pt Level 3 (36761) Diagnoses Post-menopausal bleeding N95.0
[2023-06-10 08:44] VITALS: BP 120/68; BMI 25.0
== END 2023-06-10 09:03 | disposition home or self-care (01) ==
LOC: HO.HWS 08:30
PROVIDERS: PCP Obstetrics & Gynecology; Referring Provider Obstetrics & Gynecology; Visit Provider Obstetrics & Gynecology
DX: N95.0 Postmenopausal bleeding (principal)
CPT/HCPCS: 99213

== ENCOUNTER → 2023-06-10 08:30 | Outpatient (BNVA) | payer MEDICAID, SELFPAY | PROVIDERS: PCP Obstetrics & Gynecology; Visit Provider Obstetrics & Gynecology | DX: N95.0 Postmenopausal bleeding (principal); Z98.890 Other specified postprocedural states | CPT/HCPCS: 99212 ==

== ENCOUNTER 2023-09-11 08:49 | Outpatient (AMB) | payer MEDICAID, SELFPAY ==
--- NOTE | 2023-09-11 08:52 | A.OFFVIS_ITS ---
Vital Signs 09/11/23 09:03 Height 5 ft 2 in Weight 145 lb BMI 26.5 BP 114/60 Intake Visit Reasons: 3 month EMB Shoe Patternmaker Required: Yes Shoe Patternmaker Language: Senior Product Development Scientist Name: Francisca Bridges Information Interpreted: non-clinical & clinical School Bus Inspector: School Bus Inspector Present (Francisca) Allergies indomethacin [From INDOCIN] Allergy (Unknown, Verified 09/11/23 09:04) RASH Patient : No HPI Comments Details: Presenting for 3 months EMB because of proliferative endometrium in postmenopausal, the patient took Provera 10 mg p.o. q.d. for the 1st 10 days and forgot to continue on it, since then the patient had another episode of vaginal bleeding PFSH Medical History Fibula fracture Arthritis Surgical History History of lumpectomy Tubal ligation status Family History Father No problems noted. Mother No problems noted. Social History Current occupational status: unemployed Current occupation: right handed Female Reproductive History Menstrual Age of Menarche: 9 control method: permanent sterilization Date of last pap smear: 08/17/21 (negative) Review of Systems Const All systems reviewed & are unremarkable except as noted in HPI and below Reports as per HPI and Reports no additional complaints GI Reports no additional complaints Reports no additional complaints Physical Exam General: Yes no CVA tenderness External Female Exam: normal external appearance and normal appearance of the urethra Speculum Exam - Vagina: normal appearance of the vagina, normal palpation, no lesions and no masses Speculum Exam - Cervix: normal appearance of the cervix, normal palpation, no lesions, no masses and nontender Bimanual exam- vagina & uterus: normal bimanual exam, normal palpation, uterine size normal, normal palpation, uterine shape normal, No Cervical tenderness present and non-tender Bimanual Exam- Adnexa, other: normal adnexae Back/Spine/Pelvis Back: no CVA tenderness Office Procedures Endometrial Biopsy Details: The patient was counseled regarding the indication and benefits of endometrial sampling to rule out endometrial pathology including not limited to endometrial hyperplasia or endometrial cancer and others; The alternatives (Either do nothing vs. hysteroscopy D&C) & the risks were discussed with the patient including but not limited: pain, uterine perforation, bleeding, infection, possible injury to bladder, bowel, ureter, possible need for blood transfusion with all its possible risks. The patient verbalized understanding all questions answered and signed consent. The patient was placed into the dorsal lithotomy position; a speculum was inserted in the vagina. Using aseptic technique for the procedure, the cervix was cleansed with Betadine. The anterior lip of the cervix was grasped with a single tooth tenaculum. The uterus was sounded to 7 cm with a 4 mm Pipelle was used. Tissues samples were obtained and placed in formalin, in a patient labeled container and sent to the pathology department. At the end of the procedure, there was minimal bleeding noted The patient tolerated the procedure well and was discharged in good condition with the following instructions: Nothing in the vagina until the bleeding stops. No sex until the bleeding stops, to call if any of the following occurs: fever (>100.4), flu-like symptoms, abdominal pain, heavy bleeding, four smelling vaginal discharge. The patient was instructed to schedule a Follow up appointment in 2 weeks to discuss pathology results of the biopsy and treatment options. This note was generated with a voice recognition program. Some errors may have been overlooked during the review of this note. Sometimes these errors may affect the content or meaning of a given sentence. [id number] Biopsy Assessment & Plan Assessment & Plan (1) Post-menopausal bleeding: Comment: Proliferative endometrium Code(s): N95.0 - Postmenopausal bleeding Category: Medical Plan: EMB done, see procedure. Instructions given the patient to schedule 2 week EMB follow-up appointment Recommended to the patient progesterone treatment , either levo norgestrel IUD or continue p.o. progestins in addition to repeat endometrial biopsy every 3 months for a year. All pros and cons, risks and benefits of each were discussed with the patient. The patient decided to proceed with Mirena IUD. so a more detailed discussion about it was conducted including mechanism of action, risks (uterine perforation, infection, injury to bladder, bowel, displacement, increase in the risk of breast cancer and others) benefits (decrease the risk of future endometrial hyperplasia and carcinoma of the endometrium ...). GC/CT will be taken next visit and the patient was instructed to to schedule Mirena IUD insertion terry; in addition , recommended repeat endometrial biopsy every 3 months for 1 year. Instructed the patient to call in case is vaginal bleeding bleeding recurs, schedule endometrial biopsy in 3 months and IUD insertion within week All questions answered and the patient verbalized understanding and agreed with the plan. Orders: Orders AMB Endometrial Biopsy Today N95.0 - Postmenopausal bleeding Coding Level of Care Code Est Pt Level 3 (13517) Procedure Only Diagnoses Post-menopausal bleeding N95.0 CPT Codes Endometrial Biopsy - CPT: 60858-Khhthcfhtoy Biopsy ([id number])
[2023-09-11 09:03] VITALS: BP 114/60; BMI 26.5
== END 2023-09-11 09:14 | disposition home or self-care (01) ==
PROVIDERS: PCP Obstetrics & Gynecology; Visit Provider Obstetrics & Gynecology
DX: N95.0 Postmenopausal bleeding (principal)
CPT/HCPCS: 58100; 99213

== ENCOUNTER 2023-09-11 08:49 | Outpatient (REF) | payer MEDICAID, SELFPAY | END 2023-09-11 08:50 | disposition home or self-care (01) | LOC: HO.LNP 08:49 | PROVIDERS: PCP Obstetrics & Gynecology; Visit Provider Obstetrics & Gynecology | DX: N95.0 Postmenopausal bleeding (principal) | CPT/HCPCS: 58100; 88305; 99212 ==

== ENCOUNTER 2023-09-23 08:52 | Outpatient (AMB) | payer MEDICAID, SELFPAY ==
--- NOTE | 2023-09-23 08:56 | A.OFFVIS_ITS ---
Vital Signs 09/23/23 09:01 Height 5 ft 2 in Weight 143 lb 4.807 oz BMI 26.2 BP 112/64 Intake Visit Reasons: 2 week emb resutls / mirena insertion Vascular Neurologist Required: Yes Vascular Neurologist Language: Boiling House Oiler Name: Francisca FELIPE Information Interpreted: non-clinical & clinical Color Technician: Color Technician Present (Francisca FELIPE) Accompanied by: Self / Same As Patient Allergies indomethacin [From INDOCIN] Allergy (Unknown, Verified 09/23/23 09:02) RASH HPI Comments Details: The patient is presenting after endometrial biopsy. The patient has no complaints, no vaginal bleeding, no feverishness chills or abdominal pain. Endometrial biopsy pathology showed the following: Weakly proliferative endometrium with stromal breakdown; negative for atypia, hyperplasia or malignancy last mammogram was BI-RADS 2 in 01/08 [facility] Medical History Fibula fracture Arthritis Surgical History History of lumpectomy Tubal ligation status Family History Father No problems noted. Mother No problems noted. Social History Current occupational status: unemployed Current occupation: right handed Female Reproductive History Menstrual Age of Menarche: 9 Date of last menstrual period: 09/11/23 Review of Systems Const All systems reviewed & are unremarkable except as noted in HPI and below Reports as per HPI and Reports no additional complaints GI Reports no additional complaints Reports no additional complaints Physical Exam Vital Signs: Last Vital Signs BP 112/64 09/23/23 09:01 BMI result Body Mass Index 26.2 Office Procedures IUD Insert/Removal Details Details: The patient is presenting for Mirena IUD insertion Urine test was done in the office and was negative; All the contraindications were excluded. The following possible complications were discussed with the patient: Intrauterine , Ectopic , Sepsis, Pelvic Infection, Irregular Bleeding and Amenorrhea, Perforation, Expulsion, Ovarian Cysts, Breast Cancer, The following adverse effects were discussed with the patient: alteration of menstrual bleeding pattern, including: unscheduled uterine bleeding decreased uterine bleeding increased scheduled uterine bleeding female genital tract bleeding ,amenorrhea , genital discharge , vulvovaginitis , breast pain , benign ovarian cyst and associated complications , dysmenorrhea , Gastrointestinal disorders abdominal/pelvic pain, headache/migraine , back pain , acne , depression Alternative options were discussed with the patient including but not limited: control pills, patch, NuvaRing, Depo-medroxyprogesterone acetate, Nexplanon, copper IUD, sterilization, vasectomy, others The procedure was explained in detail to patient , at the end patient signed the informed consent obtained. A no touch technique was used throughout the procedure. A speculum was placed into vagina and cervix was cleaned with betadine). A tenaculum was placed. A plastic sound was advanced through the external and internal os until it reached the fundus of the uterus, the depth was 8 cm. The sound was then withdrawn. The IUD was loaded in a sterile manner and advanced into position. The string was visualized and cut to 3 cm. Tenaculum site hemostatic. All instruments removed from vagina. Patient tolerated the procedure well. NO complications were noted. Patient was instructed to call for fever over 100.4, significant pain unrelieved by Motrin, IUD expulsion, heavy bleeding, or abnormal discharge. In addition, the following clinical considerations were discussed with the patient to call for removal: A stroke or heart attack ,Very severe or migraine headaches ,Unexplained fever ,Yellowing of the skin or whites of the eyes, as these may be signs of serious liver problems , or suspected , Pelvic pain or pain during sex ,HIV positive seroconversion in herself or her partner , Possible exposure to sexually transmitted infections Unusual vaginal discharge or genital sores , severe vaginal bleeding or bleeding that lasts a long time, or if she misses a menstrual period, Inability to feel Mirena's threads Counseled the patient that the IUD does not protect against STI's, recommended use of condoms for the first 7 days post insertion and explained to the patient that condoms are recommended for patients at risk for sexually transmitted infections. Instructed the patient to schedule a Follow up appointment in 4 to 6 weeks following insertion. This note was generated with a voice recognition program. Some errors may have been overlooked during the review of this note. Sometimes these errors may affect the content or meaning of a given sentence. 24543-FNO Insertion Procedure code (CPT) selection complete Office Meds Mirena 21 mcg/24 hours (8 yrs) 52 mg intrauterine device Performing Provider: Armando Smallwood MD Performing Location: [facility] [place] [facility] Documented (not given) by: Armando Smallwood MD on 09/23/23 09:34 Dose Route Admin Location Dispensed Lot Number Expiration Date [facility] Garment Folder 1 device intrauterine ea Results AMB Test Urine AMB Test Urine Negative Last Edit by Francisca Bridges CMA on 09:08 Results Reviewed Results Reviewed: Laboratory Last Values [facility] Negative 09/23/23 09:07 Assessment & Plan Assessment & Plan (1) Post-menopausal bleeding: Comment: Proliferative endometrium Code(s): N95.0 - Postmenopausal bleeding Category: Medical Plan: Discussed with the patient the results of the pathology of the endometrial scrapings showing proliferative endometrium. Discussed with the patient the sensitivity, specificity, positive and negative predictive value, of endometrial biopsy in detecting endometrial pathology including but not limited to endometrial hyperplasia, cancer and other pathology; in addition discussed the patient the pathology of the endometrium in post menopause is associated with an increase in the risk of endometrial hyperplasia and malignancy in patient with preferred of endometrial pathology in menopause. Recommended to the patient progesterone treatment , levo norgestrel IUD for p.o. progestins in addition to repeat endometrial biopsy every 3 months for a year. All pros and cons, risks and benefits of each were discussed with the patient. The patient decided to proceed with Mirena IUD. so a more detailed discussion about it was conducted including mechanism of action, risks (uterine perforation, infection, injury to bladder, bowel, displacement, increase in the risk of breast cancer and others) benefits (decrease the risk of future endometrial hyperplasia and carcinoma of the endometrium ...). GC/CT were taken recently and were negative and Mirena IUD insertion was done, see procedure note; in addition , recommended repeat endometrial biopsy every 3 months for 1 year. Instructed the patient to call in case is vaginal bleeding bleeding recurs, schedule endometrial biopsy in 3 months and IUD insertion within week All questions answered and the patient verbalized understanding and agreed with the plan. Orders: Orders AMB IUD Insertion/Removal - Practice Supplied Today N95.0 - Postmenopausal bleeding AMB HCG Urine Test Today Z32.02 - Encounter for test, result negative Medications: New Mirena (levonorgestrel) 1 device intrauterine ONCE 1 ea 0RF IUD insertion NS N95.0 - Postmenopausal bleeding Coding Level of Care Code Est Pt Level 3 (81254) Procedure Only Diagnoses Post-menopausal bleeding N95.0 CPT Codes Details - CPT: 46919-OHO Insertion ([id number])
[2023-09-23 09:01] VITALS: BP 112/64; BMI 26.2
== END 2023-09-23 09:36 | disposition home or self-care (01) ==
PROVIDERS: PCP Obstetrics & Gynecology; Referring Provider Obstetrics & Gynecology; Visit Provider Obstetrics & Gynecology
DX: N95.0 Postmenopausal bleeding (principal); Z32.02 Encounter for pregnancy test, result negative; Z30.430 Encounter for insertion of intrauterine contraceptive device
CPT/HCPCS: 58300; 99213

== ENCOUNTER → 2023-09-23 08:52 | Outpatient (BNVA) | payer MEDICAID, SELFPAY | PROVIDERS: PCP Obstetrics & Gynecology; Visit Provider Obstetrics & Gynecology | DX: Z30.430 Encounter for insertion of intrauterine contraceptive device (principal); N95.0 Postmenopausal bleeding | CPT/HCPCS: 58300; 81025; 99212; J7298 ==

== ENCOUNTER 2023-11-04 09:54 | Outpatient (AMB) | payer MEDICAID, SELFPAY ==
--- NOTE | 2023-11-04 10:09 | A.OFFVIS_ITS ---
Vital Signs 11/04/23 10:12 Height 5 ft 2 in Weight 143 lb 4.807 oz BMI 26.2 Intake Visit Reasons: 4-6 IUD check Derrick Worker Well Service Required: Yes Derrick Worker Well Service Language: Telecommunications Network Planner Name: Francisca FELIPE Information Interpreted: non-clinical & clinical Network Programmer: Network Programmer Present Allergies indomethacin [From INDOCIN] Allergy (Unknown, Verified 11/04/23 10:13) RASH HPI Comments Details: The patient is presenting for IUD check . The patient has no complaints [facility] Medical History Fibula fracture Arthritis Surgical History History of lumpectomy Tubal ligation status Family History Father No problems noted. Mother No problems noted. Social History Current occupational status: unemployed Current occupation: right handed Female Reproductive History Menstrual Age of Menarche: 9 Review of Systems Const All systems reviewed & are unremarkable except as noted in HPI and below Physical Exam Vital Signs: BMI result Body Mass Index 26.2 General: Yes no CVA tenderness External Female Exam: normal external appearance and normal appearance of the urethra Speculum Exam - Vagina: normal appearance of the vagina, normal palpation, no lesions and no masses Speculum Exam - Cervix: normal appearance of the cervix, normal palpation, no lesions, no masses, nontender and Other cervical findings present (IUD thread in place) Bimanual exam- vagina & uterus: normal bimanual exam, normal palpation, uterine size normal, normal palpation, uterine shape normal, No Cervical tenderness present and non-tender Bimanual Exam- Adnexa, other: normal adnexae Back/Spine/Pelvis Back: no CVA tenderness Assessment & Plan Assessment & Plan (1) IUD check up: Code(s): Z30.431 - Encounter for routine checking of intrauterine contraceptive device Category: Medical Plan: Discussed with the patient the finding on physical exam, IUD string in place, the patient was reassured. Instructions given to patient to call in case of temperature above 100.4, severe cramping/pelvic pain, abnormal discharge or abnormal uterine bleeding or if she misses her menstrual cycle. Otherwise follow-up at her annual exam appointment. All questions answered, the patient verbalized understanding. Coding Level of Care Code Est Pt Level 3 (78331) Diagnoses IUD check up Z30.767
[2023-11-04 10:12] VITALS: BMI 26.2
== END 2023-11-04 10:53 | disposition home or self-care (01) ==
PROVIDERS: PCP Family Medicine; Referring Provider Family Medicine; Visit Provider Obstetrics & Gynecology
DX: Z30.431 Encounter for routine checking of intrauterine contraceptive device (principal)
CPT/HCPCS: 99213

== ENCOUNTER → 2023-11-04 09:54 | Outpatient (BNVA) | payer MEDICAID, SELFPAY | PROVIDERS: PCP Obstetrics & Gynecology; Visit Provider Obstetrics & Gynecology | DX: Z30.431 Encounter for routine checking of intrauterine contraceptive device (principal) | CPT/HCPCS: 99212 ==

== ENCOUNTER 2023-12-31 08:46 | Outpatient (AMB) | payer MEDICAID, SELFPAY ==
--- NOTE | 2023-12-31 09:00 | MHC.OFFVIS ---
Vital Signs 12/31/23 09:07 Height 5 ft 2 in Weight 143 lb 4.807 oz BMI 26.2 BP 116/74 Intake Visit Reasons: EMB Counter Sales Representative Required: Yes Counter Sales Representative Language: Ecommerce Merchandising Manager Services: Counter Sales Representative Present (in person) Counter Sales Representative Name: Francisca FELIPE Information Interpreted: non-clinical & clinical Machine Leather Trimmer: Machine Leather Trimmer Present (Francisca FELIPE) Accompanied by: Daughter Allergies indomethacin [From INDOCIN] Allergy (Unknown, Verified 12/31/23 09:11) RASH Is last menstrual period known: No (mirena) Patient : Yes HPI Comments Details: Presenting for repeat EMB on Mirena IUD for proliferative endometrium on previous EMB [facility] Medical History (Reviewed 12/31/23 @ :24 by Armando Smallwood MD) Fibula fracture Arthritis Surgical History History of lumpectomy Tubal ligation status Family History (Reviewed 12/31/23 @ :24 by Armando Smallwood MD) Father No problems noted. Mother No problems noted. Social History Current occupational status: unemployed Current occupation: right handed Female Reproductive History Menstrual Age of Menarche: 9 Review of Systems Const All systems reviewed & are unremarkable except as noted in HPI and below Reports as per HPI and Reports no additional complaints GI Reports no additional complaints Reports no additional complaints Physical Exam Vital Signs: BMI result Body Mass Index 26.2 Office Procedures Endometrial Biopsy Details: The patient was counseled regarding the indication and benefits of endometrial sampling to rule out endometrial pathology including not limited to endometrial hyperplasia or endometrial cancer and others; The alternatives (Either do nothing vs. hysteroscopy D&C) & the risks were discussed with the patient including but not limited: pain, uterine perforation, bleeding, infection, possible injury to bladder, bowel, ureter, possible need for blood transfusion with all its possible risks. The patient verbalized understanding all questions answered and signed consent. The patient was placed into the dorsal lithotomy position; a speculum was inserted in the vagina. Using aseptic technique for the procedure, the cervix was cleansed with Betadine. The anterior lip of the cervix was grasped with a single tooth tenaculum. The uterus was sounded to 7 cm with a 4 mm Pipelle was used. Tissues samples were obtained and placed in formalin, in a patient labeled container and sent to the pathology department. At the end of the procedure, there was minimal bleeding noted The patient tolerated the procedure well and was discharged in good condition with the following instructions: Nothing in the vagina until the bleeding stops. No sex until the bleeding stops, to call if any of the following occurs: fever (>100.4), flu-like symptoms, abdominal pain, heavy bleeding, four smelling vaginal discharge. The patient was instructed to schedule a Follow up appointment in 2 weeks to discuss pathology results of the biopsy and treatment options. This note was generated with a voice recognition program. Some errors may have been overlooked during the review of this note. Sometimes these errors may affect the content or meaning of a given sentence. 00812-Conzanpmzii Biopsy Assessment & Plan Assessment & Plan (1) Post-menopausal bleeding: Comment: Proliferative endometrium Code(s): N95.0 - Postmenopausal bleeding Category: Medical Plan: EMB done, see procedure Orders: Orders AMB Endometrial Biopsy Today N95.0 - Postmenopausal bleeding Coding Level of Care Code Procedure Only Diagnoses Post-menopausal bleeding N95.0 CPT Codes Endometrial Biopsy - CPT: 56494-Esdjkeuoldg Biopsy ([id number])
[2023-12-31 09:07] VITALS: BP 116/74; BMI 26.2
== END 2023-12-31 09:30 | disposition home or self-care (01) ==
PROVIDERS: PCP Obstetrics & Gynecology; Referring Provider Obstetrics & Gynecology; Visit Provider Obstetrics & Gynecology
DX: N95.0 Postmenopausal bleeding (principal)
CPT/HCPCS: 58100

== ENCOUNTER 2023-12-31 08:46 | Outpatient (REF) | payer MEDICAID, SELFPAY | END 2023-12-31 08:47 | disposition home or self-care (01) | LOC: HO.LNP 08:46 | PROVIDERS: PCP Obstetrics & Gynecology; Visit Provider Obstetrics & Gynecology | DX: N95.0 Postmenopausal bleeding (principal) | CPT/HCPCS: 58100; 88305 ==

== ENCOUNTER 2024-01-08 08:46 | Outpatient (REF) | payer MEDICAID, SELFPAY | END 2024-01-08 08:47 | disposition home or self-care (01) | LOC: HO.MAMMO 08:46 | PROVIDERS: Visit Provider Obstetrics & Gynecology | DX: Z13.89 Encounter for screening for other disorder (principal) ==

== ENCOUNTER 2024-01-15 08:47 | Outpatient (AMB) | payer MEDICAID, SELFPAY ==
[2024-01-15 08:48] VITALS: BMI 26.2
--- NOTE | 2024-01-15 08:48 | A.OFFVIS_ITS ---
Vital Signs 01/15/24 08:48 Height 5 ft 2 in Weight 143 lb 4.807 oz BMI 26.2 Intake Visit Reasons: Breast check Interior Decorator Required: Yes Interior Decorator Language: Junior Account Executive Services: Interior Decorator Present (in person) Interior Decorator Name: Francisca FELIPE Information Interpreted: non-clinical & clinical Quality Assistant: Quality Assistant Present (Francisca FELIPE) Accompanied by: Self / Same As Patient Allergies indomethacin [From INDOCIN] Allergy (Unknown, Verified 01/15/24 08:49) RASH HPI Comments Details: The patient is presenting after endometrial biopsy. The patient has no complaints, no vaginal bleeding, no feverishness chills or abdominal pain. The endometrial biopsy pathology report showed the following: Benign endometrium with atrophic glands and decidual stromal change consistent with progestin effect, focal breakdown, focal necrosis, and focal acute inflammation (likely due to breakdown); no atypia or carcinoma The patient has been on Mirena IUD since 10/09. The patient has been complaining of left breast pain over the last 3 weeks no other associated symptoms no nipple discharge or any other concerns Last mammogram was in 01/08 was BI[facility]RADS 2 [facility] Medical History Fibula fracture Arthritis Surgical History History of lumpectomy Tubal ligation status Family History Father No problems noted. Mother No problems noted. Social History Current occupational status: unemployed Current occupation: right handed Female Reproductive History Menstrual Age of Menarche: 9 Physical Exam Vital Signs: BMI result Body Mass Index 26.2 Chest Chest palpation & inspection: normal inspection of the chest Breast/axilla palpation: normal palpation of the breasts (Right breast within normal) and abnormal palpation of the breast (Left breast 1 cm tender lump 6 cm from the nipple @1 o'clock) Assessment & Plan Assessment & Plan (1) Post-menopausal bleeding: Comment: Proliferative endometrium on Mirena IUD since 10/09 Code(s): N95.0 - Postmenopausal bleeding Category: Medical Plan: Discussed with the patient the results of the pathology showing benign endometrium, recommended repeat endometrial biopsy in 4 months to rule out endometrial pathology. Instructions given to the patient to schedule EMB in 4 months and to call in case of abnormal uterine bleeding. All questions answered, the patient verbalized understanding (2) Breast lump on left side at 1 o'clock position: Comment: Left breast 1 cm tender lump 6 cm from the nipple @1 o'clock Code(s): N63.21 - Unspecified lump in the left breast, upper outer quadrant Category: Medical Plan: Discussed with the patient the finding on Breast exam (breast lump) .The differential diagnosis includes but not limited to lump/cyst/pre cancer/cancer or dense breast tissue. The work up includes breast US and diagnostic mammogram and referred the patient for surgical breast consult. Orders: Orders MM tomosynthesis diagnostic BI Today N63.21 - Unspecified lump in the left breast, upper outer quadrant US breast LT complete Today N63.21 - Unspecified lump in the left breast, upper outer quadrant Referrals General Surgery Referral N63.21 - Unspecified lump in the left breast, upper outer quadrant Coding Level of Care Code Est Pt Level 3 (00900) Diagnoses Post-menopausal bleeding N95.0 Breast lump on left side at 1 o'clock position N63.21
== END 2024-01-15 09:18 | disposition home or self-care (01) ==
LOC: HO.HWS 08:47
PROVIDERS: PCP Obstetrics & Gynecology; Referring Provider Family Medicine; Visit Provider Obstetrics & Gynecology
DX: N95.0 Postmenopausal bleeding (principal); N63.21 Unspecified lump in the left breast, upper outer quadrant
CPT/HCPCS: 99213

== ENCOUNTER → 2024-01-15 08:47 | Outpatient (BNVA) | payer MEDICAID, SELFPAY | PROVIDERS: PCP Obstetrics & Gynecology; Visit Provider Obstetrics & Gynecology | DX: N95.0 Postmenopausal bleeding (principal); N63.21 Unspecified lump in the left breast, upper outer quadrant | CPT/HCPCS: 99212 ==

== ENCOUNTER 2024-01-28 14:40 | Outpatient (REF) | payer MEDICAID, SELFPAY ==
--- NOTE | ~2024-01-28 | MM_ITS ---
EXAMINATION: MM DIAGNOSTIC DIGITAL BREAST TOMOSYNTHESIS, BILATERAL US BREAST LIMITED, LEFT MAMMOGRAPHY: CLINICAL INFORMATION: 53-year-old female complaining of palpable lump left breast upper outer quadrant. Patient noticed one month ago. History of remote left lumpectomy upper far outer left breast. History of benign biopsy right breast upper inner quadrant posterior one third. COMPARISON: Mammography: 01/03/2023, 12/31/2021, 11/24/2017, 10/29/2016. TECHNIQUE: Digital breast tomosynthesis is performed in both the craniocaudal and mediolateral oblique views along with computer-aided detection (CAD). Synthesized 2D images are generated from the tomosynthesis. In addition, an added full field 3-D left ML view was obtained, added full field right CC view, as well as 3-D spot compression left CC and MLO views of the palpable focus of concern. FINDINGS: The breasts are heterogeneously dense, which may obscure small masses (ACR BI-RADS breast composition Category c). Post benign biopsy clip noted in the right breast upper inner quadrant, posterior one third. There are benign appearing dystrophic calcifications in the left breast at the approximate 10:00 axis, middle one third. An area of palpable concern in the upper outer left breast shows no abnormality underlying or in the vicinity on mammography. This will be interrogated by ultrasound. Otherwise, there are no suspicious masses, suspicious grouped calcifications, or areas of architectural distortion in either breast. The heterogeneously dense parenchymal pattern is stable from prior exams. There is no skin or axillary abnormality. ULTRASOUND: CLINICAL INFORMATION: As above. COMPARISON: None relevant. TECHNIQUE: Targeted sonographic evaluation was performed using a high frequency linear transducer. Attention was focused left breast upper-outer quadrant in area of palpable concern. Selected archived documentation. FINDINGS: LEFT BREAST: There is heterogeneously dense fibroglandular tissue. There is no suspicious mass, abnormal shadowing, cystic abnormality, architectural distortion, or other correlates to the area of palpable concern. Only a ridge of dense tissue is visualized. MM/MM tomosynthesis diagnostic BI IMPRESSION: 1. There are no findings in either breast suspicious for malignancy. 2. Area of palpable concern left breast upper outer quadrant demonstrates no ultrasonographic or mammographic correlate. The patient is likely feeling a ridge of dense tissue. Recommend clinical management follow-up. 3. Otherwise, recommend routine turning to routine annual screening mammography. OVERALL ASSESSMENT: Mammography: BI-RADS 2 - Benign Findings Ultrasound: BI-RADS 2 - Benign Findings RECOMMENDATION: 1. Patient should be managed based on the clinical impression. 2. Otherwise, routine annual screening mammography. This patient's information was entered into a reminder system with a target due date for their next mammogram. Electronically signed by: Campbell Hook MD 01/28/2024 04:36 PM EDT
== END 2024-01-28 14:41 | disposition home or self-care (01) ==
LOC: HO.MAMMO 14:40
PROVIDERS: PCP Family Medicine; Visit Provider Obstetrics & Gynecology
DX: N63.21 Unspecified lump in the left breast, upper outer quadrant (principal)
CPT/HCPCS: 76642; 77062; 77066

== ENCOUNTER → 2024-01-28 15:00 | Outpatient (BNV) | payer MEDICAID, SELFPAY | PROVIDERS: PCP Family Medicine; Visit Provider Radiology Diagnostic Radiology | DX: R92.322 Mammographic fibroglandular density, left breast (principal); R92.332 Mammographic heterogeneous density, left breast; R92.1 Mammographic calcification found on diagnostic imaging of breast | CPT/HCPCS: 76642; 77062; 77066 ==

== ENCOUNTER 2024-02-03 09:41 | Outpatient (AMB) | payer MEDICAID, SELFPAY ==
--- NOTE | 2024-02-03 09:58 | MHC.PC.OV ---
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 Intake Note: establish care bilateral leg numbness and loss of sensation x3-4 months tingling sensation like pins and needles at the bottom of her feet Is last menstrual period known: No Post menopausal: Yes Patient : No Allergies indomethacin [From INDOCIN] Allergy (Unknown, Verified 02/03/24 10:02) RASH Medication List - Last Reconciled 02/03/24 by Mil Haji MD acetaminophen (Tylenol) 650 mg (2 x 325 mg) PO Q6H PRN ferrous sulfate 325 mg PO DAILY 90 days levonorgestrel (Mirena) intrauterine Tobacco use date assessed: 02/03/24 Dental Screening Dental Screen Date: 02/03/24 Did you have a dental visit in the last 12 months?: Yes Did you have a dental problem in the last 6 months where you did not have access to dental care?: No Was dental information given to patient?: Patient has dentist 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 ?? Prior PCP:? Unknown Last office visit/CPE:? > 4 yrs Acute issue(s):? PHQ9 & GAD7 Elevated Tingling in extremities ?? PMHx:?AUB, Breast Lump, Spondylopathy and R hip pain SurgHx:? L breast Lumpectomy, FHx:? Mom: DM, HTN, Thyroid. Dad: On blood thinners. SocHx:? Nonsmoker. EtOH No . PFSH Medical History Fibula fracture Arthritis Surgical History History of lumpectomy Tubal ligation status Family History Father No problems noted. Mother No problems noted. Social History (Updated 02/03/24 @ 10:03 by Susie Rey MA) Housing: House Patient Tobacco Use Status: Never used Tobacco e-Cigarette/Vaping Use: Never Used Second Hand Smoke Exposure: No service: No Current occupational status: unemployed and disabled Current occupation: right handed Current occupational exposures/hazards: No Cognitive needs: No Hearing needs: No Vision needs: Yes Female Reproductive History Menstrual Age of Menarche: 9 Questionnaire PHQ-9 Over the last 2 weeks, how often have you been bothered by any of the following problems? 1. Little interest or pleasure in doing things: several days 2. Feeling down, depressed, or hopeless: nearly every day 3. Trouble falling or staying asleep, or sleeping too much: nearly every day 4. Feeling tired or having little energy: more than half the days 5. Poor appetite or overeating: several days 6. Feeling bad about yourself - or that you are a failure or have let yourself or your family down: several days 7. Trouble concentrating on things, such as reading the newspaper or watching television: nearly every day 8. Moving or speaking so slowly that other people could have noticed. Or the opposite - being so fidgety or restless that you have been moving around a lot more than usual: several days 9. Thoughts that you would be better off or of hurting yourself in some way: not at all Total score: 15 Depression Screening Interpretation: Positive Depression Screening Done: Yes 15001 - PHQ-9 Billing: Yes Source: Developed by Drs. Rohit Leyva, Silvia Raman, Felix Kraus and colleagues, with an educational satinder from [employer]. Thrive Questionnaire Date Thrive assessed: 02/03/24 I am a: Patient What is your living situation today?: I have a steady place to live Within the past 12 months, did the food you bought not last and you didn't have the money to get more?: Never true Within the past 12 months, did you worry whether your food would run out before you got money to buy more?: Never true Do you have trouble paying for medicines?: No Do you have trouble getting transportation to medical appointments?: No Do you have trouble paying your heating and electricity bill?: Yes Do you have trouble taking care of your child, family member or friend?: No Do you have trouble with day-to-day activities such as bathing, preparing meals, shopping, managing finances, etc.?: No Are you currently unemployed and looking for a job?: No Are you interested in more education?: No Currently or been in a relationship where the following occur: No concerns reported THRIVE Score: 1 AUDIT C Alcohol Use Questionnaire (AUDIT-C) 1. How often do you have a drink containing alcohol?: Never 3. How often do you have six or more drinks on one occasion?: Never Total Score: 0 ANIKA-7 AMB Questionnaire ANIKA-7 Date ANIKA - 7 assessed: 02/03/24 Feeling nervous, anxious, or on edge: 2 = More than half the days Not being able to stop or control worryin = More than half the days Worrying too much about different things: 1 = Several days Trouble relaxin = Several days Being so restless that it is hard to sit still: 1 = Several days Becoming easily annoyed or irritable: 1 = Several days Feeling afraid as if something awful might happen: 0 = Not at all Total ANIKA-7 score (0-4 normal; 5-9 mild; 10-14 moderate; 15-21 severe): 8 Source: Developed by Drs. Rohit Leyva, Silvia Raman, Felix Kraus and colleagues, with an educational satinder from [employer]. ANIKA-7 Assessment Billing ANKIA-7 Assessment Tool: ANIKA-7 Assessment 63682 Review of Systems Const Denies chills, Denies fatigue, Denies fever(s), Denies headache(s) and Denies weakness ENT Denies dizziness and Denies headache(s) Card Denies chest pain, Denies lightheadedness, Denies dyspnea and Denies other (Palpitations) Resp Denies cough, Denies dyspnea, Denies wheezing and Denies other ( shortness of breath) Musc Denies numbness and Denies tingling Neuro Denies dizziness, Denies headache(s), Denies numbness, Denies tingling, Denies paresthesias and Denies weakness Psych Reports anxiety and Reports depression Endo Denies fatigue Aller/Immun Denies wheezing Physical exam (Primary Care) Vital Signs: Last Vital Signs Temp 97.5 F 02/03/24 10:09 Pulse 65 02/03/24 10:09 Resp 16 02/03/24 10:09 BP 110/80 02/03/24 10:09 Pulse Ox 99 02/03/24 10:09 Oxygen Delivery Method Room Air 02/03/24 10:09 BMI result Body Mass Index 26.5 Tobacco/Smoking Status: Tobacco use Status Tobacco use date assessed 02/03/24 02/03/24 10:05 Patient Tobacco Use Status Never used Tobacco 02/03/24 10:05 e-Cigarette/Vaping Use Never Used 02/03/24 10:05 PHQ-9: PHQ-9 Score PHQ-9: Total score 15 02/03/24 10:48 Depression Screening Interpretation: Positive Thrive Assessment: Date of Thrive Assessment Date Thrive assessed 02/03/24 02/03/24 10:07 Currently or been in a relationship where the following occur: No concerns reported Const General: no acute distress and well developed Nutritional Appearance: well nourished Orientation/consciousness: patient oriented x3 HENMT Head: Yes normocephalic and Yes atraumatic Eyes General: appearance normal, both eyes and all related structures Pupils: Equal, round and reactive pupils present EOM: EOMs intact bilaterally Resp Effort & Inspection: normal respiratory effort Auscultation: clear to auscultation bilaterally Cardio Rate: regular rate Rhythm: regular rhythm Heart sounds: S1 normal heart sound present, S2 normal heart sound present, no gallops, no murmurs and no rubs Neuro Other: Mild L sided weakness, 4/5 on L leg Mild tremor General: patient oriented x3 Cranial nerves: Yes Equal, round and reactive pupils present Psych Affect: normal affect Assessment and Plan Assessment & Plan (1) Depression with anxiety: Code(s): F41.8 - Other specified anxiety disorders Plan: [place] [place] Patient?declines?medication?to?treat?anxiety?and?depression?today. (2) Numbness and tingling: Code(s): R20.0 - Anesthesia of skin; R20.2 - Paresthesia of skin Plan: Intermittent?with?uncertain?cause She?does?have?some?mild?left?lower?extremity?weakness Checking?labs May?need?imaging?or?referral?to?neurology (3) Anemia: Code(s): D64.9 - Anemia, unspecified Plan: History?of?anemia Check?labs (4) Neuralgia: Code(s): M79.2 - Neuralgia and neuritis, unspecified Plan: Intermittent?pain?at?left?side?of?face?and?in?to?jaw Possible?5th?cranial?nerve?neuralgia Trial?gabapentin Also?offered?amitriptyline?which?might?also?help?with?anxiety/depression?but?she?declines?this?for?now. (5) Arthritis: Code(s): M19.90 - Unspecified osteoarthritis, unspecified site Plan: Arthritis?in?low?back?and?right?hip We?can?address?this?further?at?a?subsequent?visit (6) Right hip pain: Code(s): M25.551 - Pain in right hip Plan: As?above (7) Abnormal uterine bleeding (AUB): Comment: Anemia Code(s): N93.9 - Abnormal uterine and vaginal bleeding, unspecified Plan: Check?CBC Check?iron Follow-up?with?jewelry estimator?as?recommended (8) Breast lump on left side at 1 o'clock position: Comment: Left breast 1 cm tender lump 6 cm from the nipple @1 o'clock Code(s): N63.21 - Unspecified lump in the left breast, upper outer quadrant Plan: S/p?lumpectomy Recent?mammogram?and?ultrasound?show?benign?finding Continue?annual?screening. Managed?by?her?jewelry estimator (9) Left-sided weakness: Code(s): R53.1 - Weakness Plan: As?above,?patient?has?mild?left-sided?weakness.??Also?tremor?and?complaints?of?paresthesias Unclear?if?these?are?all?related Checking?labs?and?will?follow-up?at?next?visit.??May?need?imaging?or?referral?to?neurology (10) Tremor: Code(s): R25.1 - Tremor, unspecified Plan: As?above (11) Laboratory exam ordered as part of routine general medical examination: Code(s): Z00.00 - Encounter for general adult medical examination without abnormal findings Plan: Check?labs Orders: Orders Complete Blood Count Auto Diff Today Z00.00 - Encounter for general adult medical examination without abnormal findings Comprehensive [place]. Panel Fast Today Z00.00 - Encounter for general adult medical examination without abnormal findings TSH reflex Free T4 Today Z00.00 - Encounter for general adult medical examination without abnormal findings UA and rflx microscopic Today Z00.00 - Encounter for general adult medical examination without abnormal findings Ferritin Today N93.9 - Abnormal uterine and vaginal bleeding, unspecified CRP High Sensitivity Today R20.0 - Anesthesia of skin, R20.2 - Paresthesia of skin Erythrocyte Sedimentation Rate Today R20.0 - Anesthesia of skin, R20.2 - Paresthesia of skin Lipid Panel Today Z00.00 - Encounter for general adult medical examination without abnormal findings Microalbumin, Random (w Creat) Today I10 - Essential (primary) hypertension Vitamin B12 and Folate Today E53.8 - Deficiency of other specified B group vitamins IRON PROFILE Today N93.9 - Abnormal uterine and vaginal bleeding, unspecified Coding Level of Care Code New Pt Level 4 (38241) Diagnoses Depression with anxiety F41.8 Numbness and tingling R20.0; R20.2 Anemia D64.9 Neuralgia M79.2 Arthritis M19.90 Right hip pain M25.551 Abnormal uterine bleeding (AUB) N93.9 Breast lump on left side at 1 o'clock position N63.21 Left-sided weakness R53.1 Tremor R25.1 Laboratory exam ordered as part of routine general medical examination Z00.00 Additional Codes ANIKA-7 Assessment Billing - ANIKA-7 Assessment Tool: ANIKA-7 Assessment 15917 ([id number])
[2024-02-03 10:09] VITALS: BP 110/80; PULSE 65; RESP 16; TEMP 36.4; O2SAT 99; BMI 26.5
== END 2024-02-03 11:22 | disposition home or self-care (01) ==
PROVIDERS: PCP Family Medicine; Visit Provider Family Medicine
DX: F41.8 Other specified anxiety disorders (principal); R20.0 Anesthesia of skin; R20.2 Paresthesia of skin; D64.9 Anemia, unspecified; M79.2 Neuralgia and neuritis, unspecified; M19.90 Unspecified osteoarthritis, unspecified site; M25.551 Pain in right hip; N93.9 Abnormal uterine and vaginal bleeding, unspecified; N63.21 Unspecified lump in the left breast, upper outer quadrant; R53.1 Weakness; R25.1 Tremor, unspecified; Z00.00 Encounter for general adult medical examination without abnormal findings

== ENCOUNTER → 2024-02-03 09:41 | Outpatient (BNVA) | payer MEDICAID, SELFPAY | PROVIDERS: PCP Family Medicine; Visit Provider Family Medicine | DX: Z00.01 Encounter for general adult medical examination with abnormal findings (principal); F41.8 Other specified anxiety disorders; R20.0 Anesthesia of skin; R20.2 Paresthesia of skin; D64.9 Anemia, unspecified; M79.2 Neuralgia and neuritis, unspecified; M19.90 Unspecified osteoarthritis, unspecified site; N93.9 Abnormal uterine and vaginal bleeding, unspecified; N63.21 Unspecified lump in the left breast, upper outer quadrant; R53.1 Weakness; R25.1 Tremor, unspecified | CPT/HCPCS: 96127; 99202 ==

== ENCOUNTER 2024-02-09 09:33 | Outpatient (REF) | payer MEDICAID, SELFPAY ==
[2024-02-09 09:57] LABS: MANUAL DIFF FLAG NO
[2024-02-09 10:16] LABS: Basophils Percent Auto 0.5 % (0-2); Eosinophils Absolute Auto 0.2 X10*3/uL (0.0-0.4); Eosinophils Percent Auto 3.8 % (0-4); Hematocrit 37.8 % (37.0-47.0); Hemoglobin 11.9 g/dl (12.0-16.0); Imm Gran Abs Auto 0.01 X10*3/uL (0.00-0.03); Imm Gran Pct Auto 0.2 % (0.0-0.4); Lymphocytes Absolute Auto 2.4 X10*3/uL (1.2-4.9); Lymphocytes Percent Auto 41.2 % (20-40); Mean Corpuscular HGB Conc 31.5 g/dl (31.0-35.0); Mean Corpuscular Hemoglobin 25.5 pg (27.0-33.0); Mean Corpuscular Volume 81.1 fL (80.0-98.0); Monocytes Absolute Auto 0.4 X10*3/uL (0.1-1.2); Neutrophils Absolute Auto 2.7 x10*3/uL (2.0-8.3); Neutrophils Percent Auto 47.3 % (45-73); Platelet Count 246 X10*3/uL (160-400); Red Blood Count 4.66 X10*6/uL (4.20-5.50); Red Cell Distribution Width 13.8 % (11.0-16.0); White Blood Count 5.7 X10*3/uL (4.8-10.8)
[2024-02-09 10:52] LABS: Erythrocyte Sedimentation Rate 17 MM/HR (0-20)
[2024-02-09 10:58] LABS: Alanine Aminotransferase 10 U/L (0-31); Albumin Level 4.5 g/dL (3.5-5.0); Alkaline Phosphatase 59 U/L (39-117); Anion Gap 10 (12-20); Aspartate Amino Transferase 14 U/L (5-31); Bilirubin Total 0.5 mg/dL (0.0-1.0); Blood Urea Nitrogen 11 mg/dL (9-16); Calcium 9.8 mg/dL (8.4-10.2); Carbon Dioxide 29 mmol/L (22-29); Chloride 106 mmol/L (96-108); Cholesterol 194 mg/dL (<200); Estimated Glomerular Filt Rate > 60; Glucose Fasting 92 mg/dL (60-99); HDL Cholesterol 56 mg/dL (>40); Iron 107 mcg/dL (30-160); LDL Cholesterol Calculated 127 mg/dL (<100); Percent Iron Saturation 35 % (15-50); Sodium 141 mmol/L (135-145); Total Iron Binding Capacity 303 mcg/dL (228-428); Total Protein 7.7 g/dL (6.5-8.0); Triglycerides 58 mg/dL (<150); Unsaturated Iron Binding 196 ug/dL
[2024-02-09 11:21] LABS: Ferritin 30 ng/mL (10-250)
[2024-02-09 11:38] LABS: Creatinine Urine 161.66 mg/dL; Microalbum/Creatinine Ratio Ur 5.5 ug/mg cr (<30)
[2024-02-09 11:44] LABS: Folate 12.4 ng/mL (> or = 4.0); Vitamin B12 524 pg/mL (200-900)
[2024-02-10 10:08] LABS: CRP High Sensitivity 2.2 mg/L
== END 2024-02-09 09:34 | disposition home or self-care (01) ==
LOC: HO.LAB 09:33
PROVIDERS: PCP Family Medicine; Visit Provider Family Medicine
DX: Z00.00 Encounter for general adult medical examination without abnormal findings (principal); R20.0 Anesthesia of skin; R20.2 Paresthesia of skin; N93.9 Abnormal uterine and vaginal bleeding, unspecified; I10 Essential (primary) hypertension; E53.8 Deficiency of other specified B group vitamins
CPT/HCPCS: 36415; 80053; 80061; 82043; 82570; 82607; 82728; 82746; 83540; 84443; 85025; 85652; 86141

== ENCOUNTER 2024-03-11 09:45 | Outpatient (AMB) | payer OTHER, SELFPAY ==
--- NOTE | 2024-03-11 10:07 | A.OFFPC_ITS ---
Vital Signs 03/11/24 10:09 Height 5 ft 2 in Weight 145 lb 2 oz BMI 26.5 BP 112/54 L Blood Pressure Location Lt brachial Position Sitting Respiration 16 Pulse 69 Pulse Source Pulse Oximeter Temp 98.8 F Temp Source Temporal Artery Scan Pulse Oximetry (%) 96 Oxygen Delivery Method Room Air Intake Visit Reasons: f/u chronic conditions Intake Note: f/u chronic conditions headache and dizziness x1day and has recently started gabapentin not sure if thats been causing the headache and dizzines Allergies indomethacin [From INDOCIN] Allergy (Unknown, Verified 03/11/24 10:08) RASH Tobacco use date assessed: 02/03/24 Dental Screening Dental Screen Date: 02/03/24 HPI f/u chronic conditions HPI Details 53 y/o female presents to f/u chronic co nditions. Had complaints of neurologic complaints such as intermittent pain at L side of face and jaw. Also has mild L sided weakness, tremors and complaints of paresthesias. Had trialed gabapentin but she states it had been causing her headaches/dizziness. She did note gabapentin has helped with symptoms. Labs drawn 02/09/24. Reviewed labs with pt. Mild borderline anemia. Hgb mildly low at 11.9, MCH 25.5. She did note some uterine bleeding. They note she follows up with ObGyn for this. Triglycerides 58. TC 194. LDL 127. HDL 56. HPI Comments History of Present Illness Details Documentation assistance for Mil Haji MD, was provided by James Way, [employer] Operator on 03/11/2024 at 10:58 AM EST. I, Dr. Haji, have read, observed, and verified documentation. [facility] Medical History (Updated 03/11/24 @ 11:12 by Mil Haji MD) Fibula fracture Arthritis Surgical History History of lumpectomy Tubal ligation status Family History Father No problems noted. Mother No problems noted. Social History (Updated 02/03/24 @ 10:03 by Susie Rey [facility]) Housing: House Patient Tobacco Use Status: Never used Tobacco e-Cigarette/Vaping Use: Never Used Second Hand Smoke Exposure: No service: No Current occupational status: unemployed and disabled Current occupation: right handed Current occupational exposures/hazards: No Cognitive needs: No Hearing needs: No Vision needs: Yes Female Reproductive History Menstrual Age of Menarche: 9 Questionnaire PHQ-9 Over the last 2 weeks, how often have you been bothered by any of the following problems? 1. Little interest or pleasure in doing things: several days Source: Developed by Drs. Rohit Leyva, Silvia Raman, Felix Kraus and colleagues, with an educational satinder from [employer]. Thrive Questionnaire Date Thrive assessed: 02/03/24 I am a: Patient What is your living situation today?: I have a steady place to live Within the past 12 months, did the food you bought not last and you didn't have the money to get more?: Never true Within the past 12 months, did you worry whether your food would run out before you got money to buy more?: Never true Do you have trouble paying for medicines?: No Do you have trouble getting transportation to medical appointments?: No Do you have trouble paying your heating and electricity bill?: I choose not to answer this question Do you have trouble taking care of your child, family member or friend?: No Do you have trouble with day-to-day activities such as bathing, preparing meals, shopping, managing finances, etc.?: No Are you currently unemployed and looking for a job?: No Are you interested in more education?: No Please select the resources that you would like help with: None Currently or been in a relationship where the following occur: I choose not to answer THRIVE Score: 0 AUDIT C Alcohol Use Questionnaire (AUDIT-C) 1. How often do you have a drink containing alcohol?: Never Total Score: 0 ANIKA-7 AMB Questionnaire ANIKA-7 Date ANIKA - 7 assessed: 02/03/24 Feeling nervous, anxious, or on edge: 0 = Not at all Not being able to stop or control worryin = Not at all Worrying too much about different things: 0 = Not at all Trouble relaxin = Not at all Being so restless that it is hard to sit still: 0 = Not at all Becoming easily annoyed or irritable: 0 = Not at all Feeling afraid as if something awful might happen: 0 = Not at all Total ANIKA-7 score (0-4 normal; 5-9 mild; 10-14 moderate; 15-21 severe): 0 Source: Developed by Drs. Rohit Leyva, Silvia Raman, Felix Kraus and colleagues, with an educational satinder from [employer]. Review of Systems Const Denies chills, Denies fatigue, Denies fever(s), Denies headache(s) and Denies weakness ENT Denies dizziness and Denies headache(s) Card Denies dyspnea Resp Denies cough, Denies dyspnea, Denies wheezing and Denies other (shortness of breath) Musc Denies numbness and Denies tingling Neuro Denies dizziness, Denies headache(s), Denies numbness, Denies tingling and Denies weakness Psych Denies anxiety and Denies depression Endo Denies fatigue Aller/Immun Denies wheezing Physical exam (Primary Care) Vital Signs: Last Vital Signs Temp 98.8 F 03/11/24 10:09 Pulse 69 03/11/24 10:09 Resp 16 03/11/24 10:09 BP 112/54 L 03/11/24 10:09 Pulse Ox 96 03/11/24 10:09 Oxygen Delivery Method Room Air 03/11/24 10:09 BMI result Body Mass Index 26.5 Tobacco/Smoking Status: Tobacco use Status Tobacco use date assessed 02/03/24 03/11/24 10:14 Patient Tobacco Use Status Never used Tobacco 03/11/24 10:14 e-Cigarette/Vaping Use Never Used 03/11/24 10:14 Thrive Assessment: Date of Thrive Assessment Date Thrive assessed 02/03/24 03/11/24 10:14 Currently or been in a relationship where the following occur: I choose not to answer Const General: well developed; No acute distress Nutritional Appearance: well nourished Orientation/consciousness: patient oriented x3 HENMT Head: Yes normocephalic and Yes atraumatic Eyes General: appearance normal, both eyes and all related structures Pupils: Equal, round and reactive pupils present EOM: EOMs intact bilaterally Resp Effort & Inspection: normal respiratory effort Neuro General: patient oriented x3 and No gait normal Cranial nerves: Yes Equal, round and reactive pupils present Motor exam (neuro): strength not 5/5 throughout Psych Affect: normal affect Coding Level of Care Code Est Pt Level 4 (34132) Diagnoses Neuralgia M79.2 Left-sided weakness R53.1 Tremor R25.1 Borderline anemia D64.9 Post-menopausal bleeding N95.0 Hypercholesterolemia E78.00 Unsteady gait R26.81 Assessment & Plan Assessment & Plan (1) Neuralgia: Code(s): M79.2 - Neuralgia and neuritis, unspecified Category: Medical Plan: Ongoing?left-sided?neuralgia?which?seems?improved?with?gabapentin?though ?she?notes?the?gabapentin?causes?some?dizziness Will?decrease?gabapentin?from?300?mg?to?200?mg?per?dose.??She?can?take?this?at?b edtime?or?twice?a?day?as?needed (2) Left-sided weakness: Code(s): R53.1 - Weakness Category: Medical Plan: She?has?lower?extremity?weakness?and?an?unsteady?gait Lab?work?is?unrevealing Given?this?and?tremor?and?neuralgia,?will?check?MRI?of?brain Will?follow-up?afterwards?to?discuss?next?steps?with?patient?such?as?refe rral?to?Neurology?if?needed. Will?also?start?physical?therapy (3) Tremor: Code(s): R25.1 - Tremor, unspecified Category: Medical Plan: As?above No lab?results?to?explain?symptoms. Checking?MRI (4) Borderline anemia: Code(s): D64.9 - Anemia, unspecified Category: Medical Plan: Mild We?can?monitor (5) Post-menopausal bleeding: Comment: Proliferative endometrium on Mirena IUD since 10/09 Code(s): N95.0 - Postmenopausal bleeding Category: Medical Plan: Followed?by?textbook associate?and?has?upcoming?uterine?biopsy (6) Hypercholesterolemia: Code(s): E78.00 - Pure hypercholesterolemia, unspecified Category: Medical Plan: Advised?diet?low?in?saturated?fats?and?cholesterol (7) Unsteady gait: Code(s): R26.81 - Unsteadiness on feet Category: Medical Plan: Start?physical?therapy Given?her?other?neurologic?changes,?checking?MRI Plan Discussed?with?patient?and?her?daughter?that?all?of?the?above?symptoms?may?be?ne urological?but?can?also?be?explained?as?symptoms?of?anxiet?or?depression. I?have?referred?her?to?[facility]?outpatient?psychiatric?consult?team?and?patient?says? she?has?not?been?contacted?yet.??I?will?ask?them?to?reach?out?to?her?again. Orders: Orders PT Evaluation and Treatment Today R26.81 - Unsteadiness on feet, R29.898 - Other symptoms and signs involving the musculoskeletal system MR head/brain w con Today M79.2 - Neuralgia and neuritis, unspecified, R25.1 - Tremor, unspecified, R26.89 - Other abnormalities of gait and mobility, R29.898 - Other symptoms and signs involving the musculoskeletal system
[2024-03-11 10:09] VITALS: BP 112/54; PULSE 69; RESP 16; TEMP 37.1; O2SAT 96; BMI 26.5
== END 2024-03-11 11:12 | disposition home or self-care (01) ==
PROVIDERS: PCP Family Medicine; Visit Provider Family Medicine
DX: M79.2 Neuralgia and neuritis, unspecified (principal); R53.1 Weakness; R25.1 Tremor, unspecified; D64.9 Anemia, unspecified; N95.0 Postmenopausal bleeding; E78.00 Pure hypercholesterolemia, unspecified; R26.81 Unsteadiness on feet

== ENCOUNTER → 2024-03-11 09:45 | Outpatient (BNVA) | payer OTHER, SELFPAY | PROVIDERS: PCP Family Medicine; Visit Provider Family Medicine | DX: M79.2 Neuralgia and neuritis, unspecified (principal); R53.1 Weakness; R25.1 Tremor, unspecified; D64.9 Anemia, unspecified; N95.0 Postmenopausal bleeding; E78.00 Pure hypercholesterolemia, unspecified; R26.81 Unsteadiness on feet | CPT/HCPCS: 99212 ==

== ENCOUNTER 2024-04-29 19:29 | Outpatient (REF) | payer OTHER, SELFPAY ==
--- NOTE | ~2024-04-29 | MR_ITS ---
EXAMINATION: MR BRAIN WITHOUT CONTRAST CLINICAL INFORMATION: Weakness. COMPARISON: None available. TECHNIQUE: MRI of the brain was obtained using routine sequences without contrast. FINDINGS: No focal restricted diffusion is demonstrated to suggest acute or subacute cerebral ischemia. No evidence of acute or chronic hemorrhagic products on heme-sensitive imaging. Few nonspecific scattered foci of T2 FLAIR hyperintensity within the bifrontal lobes. No additional parenchymal signal abnormalities. The ventricles are normal in morphology and size. No abnormal mass effect. No midline shift. Mild expansion of the sella turcica with partial flattening of the pituitary gland. The cerebellar tonsils are mildly low lying, positioned 0.2 cm below the foramen magnum. The CSF space of the foramen magnum is maintained. Normal arterial and venous vascular flow voids are present. Symmetric T2 hyperintensities in the subcutaneous tissues of the bilateral malar regions consistent with prior injection sites. Normal, homogeneous marrow signal. Mild mucosal thickening of the paranasal sinuses. No signal abnormalities within the mastoids. MR/MR head/brain wo con IMPRESSION: 1. No acute intracranial abnormalities. 2. Minimal nonspecific white matter changes. 3. Mild cerebellar tonsillar ectopia. Electronically signed by: Odell Mendez DO 05/02/2024 03:24 PM SKIP
== END 2024-04-29 19:30 | disposition home or self-care (01) ==
LOC: HO.MRI 19:29
PROVIDERS: PCP Family Medicine; Visit Provider Family Medicine
DX: R53.1 Weakness (principal); R25.1 Tremor, unspecified; R20.0 Anesthesia of skin; R20.2 Paresthesia of skin; M79.2 Neuralgia and neuritis, unspecified; R26.81 Unsteadiness on feet; R29.898 Other symptoms and signs involving the musculoskeletal system; R26.89 Other abnormalities of gait and mobility
CPT/HCPCS: 70551

== ENCOUNTER 2024-05-06 10:19 | Outpatient (AMB) | payer OTHER, SELFPAY ==
--- NOTE | 2024-05-06 10:30 | MHC.OFFVIS ---
Intake Visit Reasons: EMB Vein Access Technician Required: Yes Vein Access Technician Language: Application Development Consultant Services: Vein Access Technician Present (in person) Vein Access Technician Name: MATTEO Willis Information Interpreted: non-clinical & clinical Yarn Packer: Yarn Packer Present (MATTEO Willis) Accompanied by: Self / Same As Patient Allergies indomethacin [From INDOCIN] Allergy (Unknown, Verified 05/06/24 10:31) RASH HPI Comments Details: Presenting for EMB [facility] Medical History Fibula fracture Arthritis Surgical History History of lumpectomy Tubal ligation status Family History Father No problems noted. Mother No problems noted. Social History Housing: House Patient Tobacco Use Status: Never used Tobacco e-Cigarette/Vaping Use: Never Used Second Hand Smoke Exposure: No service: No Current occupational status: unemployed and disabled Current occupation: right handed Current occupational exposures/hazards: No Cognitive needs: No Hearing needs: No Vision needs: Yes Female Reproductive History Menstrual Age of Menarche: 9 Review of Systems Const All systems reviewed & are unremarkable except as noted in HPI and below Reports as per HPI and Reports no additional complaints GI Reports no additional complaints Reports no additional complaints Office Procedures Endometrial Biopsy Details: The patient was counseled regarding the indication and benefits of endometrial sampling to rule out endometrial pathology including not limited to endometrial hyperplasia or endometrial cancer and others; The alternatives (Either do nothing vs. hysteroscopy D&C) & the risks were discussed with the patient including but not limited: pain, uterine perforation, bleeding, infection, possible injury to bladder, bowel, ureter, possible need for blood transfusion with all its possible risks. The patient verbalized understanding all questions answered and signed consent. The patient was placed into the dorsal lithotomy position; a speculum was inserted in the vagina. Using aseptic technique for the procedure, the cervix was cleansed with Betadine. The anterior lip of the cervix was grasped with a single tooth tenaculum. The uterus was sounded to 7 cm with a 4 mm Pipelle was used. Tissues samples were obtained and placed in formalin, in a patient labeled container and sent to the pathology department. At the end of the procedure, there was minimal bleeding noted The patient tolerated the procedure well and was discharged in good condition with the following instructions: Nothing in the vagina until the bleeding stops. No sex until the bleeding stops, to call if any of the following occurs: fever (>100.4), flu-like symptoms, abdominal pain, heavy bleeding, four smelling vaginal discharge. The patient was instructed to schedule a Follow up appointment in 2 weeks to discuss pathology results of the biopsy and treatment options. This note was generated with a voice recognition program. Some errors may have been overlooked during the review of this note. Sometimes these errors may affect the content or meaning of a given sentence. 53571-Vormdtoaopv Biopsy Assessment & Plan Assessment & Plan (1) Post-menopausal bleeding: Comment: 09/09 Proliferative endometrium 10/09 Mirena IUD insertion 01/09 benign endometrium Code(s): N95.0 - Postmenopausal bleeding Category: Medical Plan: EMB done, see procedure note Orders: Orders AMB Endometrial Biopsy Today N95.0 - Postmenopausal bleeding Coding Level of Care Code Procedure Only Diagnoses Post-menopausal bleeding N95.0 CPT Codes Endometrial Biopsy - CPT: 05992-Tlghnmqqgly Biopsy ([id number])
== END 2024-05-06 10:42 | disposition home or self-care (01) ==
LOC: HO.HWS 10:19
PROVIDERS: PCP Family Medicine; Visit Provider Obstetrics & Gynecology
DX: N95.0 Postmenopausal bleeding (principal)
CPT/HCPCS: 58100

== ENCOUNTER 2024-05-06 10:19 | Outpatient (REF) | payer OTHER, SELFPAY | END 2024-05-06 10:20 | disposition home or self-care (01) | LOC: HO.LNP 10:19 | PROVIDERS: PCP Family Medicine; Visit Provider Obstetrics & Gynecology | DX: N95.0 Postmenopausal bleeding (principal) | CPT/HCPCS: 58100; 88305 ==

== ENCOUNTER 2024-07-13 07:26 | Outpatient (AMB) | payer OTHER, SELFPAY ==
--- NOTE | 2024-07-13 07:26 | A.OFFVIS_ITS ---
Vital Signs 07/13/24 07:27 Height 5 ft 2 in Weight 142 lb BMI 26.0 Intake Visit Reasons: Emb Results Tying Machine Operator Required: Yes Tying Machine Operator Language: Long Term Acute Care Registered Nurse Services: Tying Machine Operator Present (in person) Tying Machine Operator Name: Francisca FELIPE Information Interpreted: non-clinical & clinical Accompanied by: Self / Same As Patient Allergies indomethacin [From INDOCIN] Allergy (Unknown, Verified 07/13/24 07:27) RASH Is last menstrual period known: No (mirena) Post menopausal: Yes HPI Comments Details: The patient is presenting after endometrial biopsy. The patient has no complaints, no vaginal bleeding, no feverishness chills or abdominal pain. The endometrial biopsy pathology report showed the following: Fragments of inactive endometrium with pseudodecidual change consistent with exogenous progestin and breakdown; no atypia or hyperplasia identified Last pelvic ultrasound in 03/10 showed the following: The uterus is heterogeneous, anteverted and measures 8.6 x 4.2 x 7.1 cm, uterine volume 125.61 mL. Uterine fibroid measures 3.0 x 2.6 x 3.0 cm, previously 3.0 x 3.2 x 3.3 cm. Previously identified 1.1 cm fibroid which is not visualized today. No significant free fluid. Right ovary measures 2.3 x 1.0 x 1.3 cm, volume 1.6 mL. Left ovary measures 2.0 x 1.0 x 1.4 cm, volume 1.5 mL. Bilateral ovaries are seen only on transabdominal ultrasound images and visualization is limited due to bowel gas. [facility] Medical History Fibula fracture Arthritis Surgical History History of lumpectomy Tubal ligation status Family History Father No problems noted. Mother No problems noted. Social History Housing: House Patient Tobacco Use Status: Never used Tobacco e-Cigarette/Vaping Use: Never Used Second Hand Smoke Exposure: No service: No Current occupational status: unemployed and disabled Current occupation: right handed Current occupational exposures/hazards: No Cognitive needs: No Hearing needs: No Vision needs: Yes Female Reproductive History Menstrual Age of Menarche: 9 control method: progestin IUCD and permanent sterilization Review of Systems Const All systems reviewed & are unremarkable except as noted in HPI and below Reports as per HPI and Reports no additional complaints GI Reports no additional complaints Reports no additional complaints Physical Exam Vital Signs: BMI result Body Mass Index 26.0 Assessment & Plan Assessment & Plan (1) Post-menopausal bleeding: Comment: 09/09 Proliferative endometrium 10/09 Mirena IUD insertion 01/09 benign endometrium 05/11 inactive endometrium Code(s): N95.0 - Postmenopausal bleeding Category: Medical Plan: Discussed with the patient the results of the biopsy pathology, showing inactive endometrium with no evidence of endometrial hyperplasia or malignancy, recommended repeat endometrial biopsy in 3 months. Instructions given to patient to schedule a 3 months EMB appointment and to call in case of vaginal bleeding and or any other concerns. All questions answered the patient verbalized understanding. (2) Myoma: Code(s): D21.9 - Benign neoplasm of connective and other soft tissue, unspecified Category: Medical Plan: Pelvic ultrasound ordered to follow-up on uterine myomas previously identified on pelvic ultrasound in 03/10. Instructions given the patient to schedule an ultrasound and a follow-up appointment within 2 weeks. All questions answered, the patient verbalized understanding Orders: Orders US pelvic and transvaginal Today D21.9 - Benign neoplasm of connective and other soft tissue, unspecified, D25.9 - Leiomyoma of uterus, unspecified Coding Level of Care Code Est Pt Level 3 (45798) Diagnoses Post-menopausal bleeding N95.0 Myoma D21.9
[2024-07-13 07:27] VITALS: BMI 26.0
--- OUTSIDE RECORDS SUMMARY | 2024-07-13 07:29 | XMS_ITS | Clinical Summary ---
Author Organization [facility] Address [address] [place] [address] [address] [place] [address] Care Team Providers Care Drain Cleaner Plumber Name Role Phone Unavailable Primary Care Provider Unavailabl e Allergies No known active allergies Medications No known medications Active Problems No known active problems Family History Medical History Relation Name Comments Clotting disorder Father Heart disease Maternal Grandfather Relation Name Status Comments Father Maternal Grandfather Social History Tobacco Use Types Packs/Day Years Used Date Smoking Tobacco: Never Smokeless Tobacco: Never Tobacco Cessation:Counseling Given: Not Answered Comments Unknown Sex and Gender Information Value Date Recorded Sex Assigned at Female 03/18/2022 10:15 AM EDT Legal Sex Female 10:15 AM EDT Gender Identity Female 03/18/2022 10:15 AM EDT Sexual Orientation Straight 03/18/2022 10 :15 AM EDT Last Filed Vital Signs Vital Sign Reading Time Taken Comments Blood Pressure 127/75 05/15/2022 7:32 PM EST Pulse 71 05/15/2022 7:32 PM EST Temperature 36.7 ??C (98.1 ??F) 05/15/2022 7:32 PM ES T Respiratory Rate 16 05/15/2022 7:32 PM EST Oxygen Saturation 100% 05/15/2022 7:32 PM EST Inhaled Oxygen Concentration - - Weight 62.6 kg (138 lb) 05/15/2022 7:32 PM EST Height 157.5 cm (5' 2 ) 05/15/2022 7:32 PM EST Body Mass Index 25.24 05/15/2022 7:32 PM EST Plan of Treatment Health Maintenance Due Date Last Done Comments CT Colonography 1969 Colonoscopy 1969 Colorectal Cancer Screening 1969 Depression Screening 1969 FIT DNA/Cologuard 1969 FIT 1969 FOBT 1969 HIV Screening 1969 SDOH Screening 1969 Sigmoidoscopy 1969 Alcohol/Substance Use Screening 1981 Hepatitis C Screening 1987 Pap Smear 1990 Hepatitis B Vaccines (3 of 3 - 19+ 3-dose series) 03/17/2014 10/19/2013, 09/15/2013 Pneumococcal Vaccine: 50+ Years (1 of 1 - PCV) 2019 Zoster Vaccines (1 of 2) 2019 Mammogram 11/26/2019 11/25/2017 Tobacco Screening 05/15/2023 05/15/2022 COVID-19 Vaccine (3 - 2023-2 5 season) 2024 01/17/2021, 12/27/2020 Influenza Vaccine (#1) 2024 4, 06/11/2013, 02/06/2011 Cervical Cancer Screening 08/15/2026 HPV/Cotest 08/15/2026 08/15/2021, 08/15/2021 DTaP/Tdap/Td Vaccines (2 - T d or Tdap) 12/14/2031 12/13/2021, 03/25/1996 RSV Patients and Patients Aged 60 years or older (1 - 1-dose 75+ series) 2044 HIB Vaccines Aged Out No longer eligi ble based on patient's age to complete this topic HPV Vaccines Aged Out No longer eligi ble based on patient's age to complete this topic Hepatitis A Vaccines Aged Out No long er eligible based on patient's age to complete this topic IPV Vaccines Aged Out No longer eligi ble based on patient's age to complete this topic Meningococcal Vaccine Aged Out No mary ann kwasi eligible based on patient's age to complete this topic Pneumococcal Vaccine: Pediatrics (0 to 5 Years) and At-Risk Patients (6 to 49) Years) Aged Out No longer eligible b ased on patient's age to complete this topic RSV under 20 months Aged Out No longe r eligible based on patient's age to complete this topic Rotavirus Vaccines Aged Out No longer eligible based on patient's age to complete this topic Procedures Procedure Name Priority Date/Time Associated Diagnosis Comments ZZZ HISTORICAL HPV E6/E7 RFLX CHER 16 18/45 Routine 08/15/2021 7:30 AM EDT BI MAMMOGRAM SCREENING BILATERAL Routine 11/25/2017 11:21 AM EDT from Last 3 Months or Most Recently Relevant to Health Maintenance Results * HPV E6/E7 RFLX CHER 16 18/45 (08/15/2021 7:30 AM EDT) HPV mRNA E6/E7 rflx Not Detected Not Detected [facility] Comment: Methodology: Environmental Science Technician-Mediated Amplification This assay detects E6/E7 viral messenger RNA (mRNA) from 14 high-risk HPV types (16,18,31,33,35,39,45,51,52,56,58,59,66,68). The analytical performance characteristics of this assay have been determined by [employer]. The modifications have not been cleared or approved by the FDA. This assay has been validated pursuant to the CLIA regulations and is used for clinical purposes. For additional information, please refer to http://education.Audiam/faq/MJQ000o0 (This link if provided for information/ educational purposes only.) THIS TEST WAS PERFORMED AT: [facility] [address] [place] [address] [address] [place], [place] ??[phone] JOSE MEZA MD 08/15/2021 7:30 AM EDT Armando Smallwood MD HISTORICAL/NON ORDERABLE LABS Fi nal Result [facility] [address] * 3D DIGITAL DAINA SCR MAMMO 1 (11/25/2017 11:21 AM EDT) Anatomical Region Laterality Modality Breast Bilateral Mammography 11/25/2017 11:2 1 AM EDT Narrative 11/25/2017 11:23 AM EDT Refer to the Notes tab for result details [facility] Procedure: 3D DIGITAL DAINA SCR MAMMO 1 Procedure Note Provider, MD Michele - 08/10/2022 Refer to the Notes tab for result details [facility] Procedure: 3D DIGITAL DAINA SCR MAMMO 1 Zoila Moreland MD IMG BI PROCEDURES Final Result from Last 3 Months or Most Recently Relevant to Health Maintenance [facility]
--- OUTSIDE RECORDS SUMMARY | 2024-07-13 07:29 | XMS_ITS | Clinical Summary ---
Author Organization [facility] it[facility] Address [address] [place] [address] Care Team Providers Care Mold Puller Name Role Phone Unavailable Primary Care Provider Unavailabl e Social History Tobacco Use Types Packs/Day Years Used Date Smoking Tobacco: Never Assessed Comments Unknown Sex and Gender Information Value Date Recorded Sex Assigned at Not on file Legal Sex Female 3:10 PM EST Gender Identity Not on file Sexual Orientation Not on file Plan of Treatment Health Maintenance Due Date Last Done Comments Breast Cancer Screening 1969 DTaP,Tdap,and Td Vaccines (1 - Tdap) 1988 Hepatitis B Vaccines (1 of 3 - 19+ 3-dose series) 1988 Cervical Cancer Screening: P ap Smear 1990 Pneumococcal Vaccine: 50+ Ye ars (1 of 1 - PCV) 2019 Zoster Vaccines (1 of 2) 2019 Colorectal Cancer Screening: Colonoscopy 04/17/2022 Depression Screening 04/17/2022 HIV Screening 04/17/2022 Hepatitis C Screening 04/17/2022 Social Influencers of Health Screening 04/17/2022 COVID-19 Vaccine ( - 2023-2 5 season) 2024 Influenza Vaccine (#1) 2024 HIB Vaccines Aged Out No longer eligi [...] on patient's age to complete this topic MMR Vaccines Aged Out No longer eligi ble based on patient's age to complete this topic Meningococcal ACWY Vaccine Aged Out N o longer eligible based on patient's age to complete this topic Meningococcal B Vacine Aged Out No lo nger eligible based on patient's age to complete this topic Pneumococcal Vaccine: Pediat rics (0 to 5 Years) and At-Risk Patients (6 to 64 Years) Aged Out No longer eligible b ased on patient's age to complete this topic RSV Immunization Patients Un carter 20 months Aged Out No longer eligible b ased on patient's age to complete this topic Varicella Vaccines Aged Out No longer eligible based on patient's age to complete this topic
== END 2024-07-13 07:42 | disposition home or self-care (01) ==
LOC: HO.HWS 07:26
PROVIDERS: PCP Family Medicine; Visit Provider Obstetrics & Gynecology
DX: N95.0 Postmenopausal bleeding (principal); D21.9 Benign neoplasm of connective and other soft tissue, unspecified
CPT/HCPCS: 99213

== ENCOUNTER → 2024-07-13 07:26 | Outpatient (BNVA) | payer OTHER, SELFPAY | PROVIDERS: PCP Family Medicine; Visit Provider Obstetrics & Gynecology | DX: N95.0 Postmenopausal bleeding (principal); D25.9 Leiomyoma of uterus, unspecified | CPT/HCPCS: 99212 ==

== ENCOUNTER 2024-08-24 15:45 | Outpatient (REF) | payer OTHER, SELFPAY ==
--- NOTE | ~2024-08-24 | US_ITS ---
EXAMINATION: US PELVIS TRANSABDOMINAL AND TRANSVAGINAL HISTORY: D25.9 - Leiomyoma of uterus, unspecified COMPARISON: Comparison is made with the prior examination dated 523. TECHNIQUE: Transabdominal and endovaginal real-time 2D leahy-scale ultrasound was performed. FINDINGS: Uterus: The uterus is normal in size, measuring 7.5 x 3.8 x 5.4 cm. Myometrium has a normal echotexture. There is a left sided fibroid measuring 3.4 x 3.3 x 3.0 cm (previously 3.0 x 3.2 x 3.3 cm). An additional 5 x 3 x 5 mm fibroid is noted in the fundus. Endometrium: The endometrial stripe measures 2 mm in thickness. An IUD is noted which appears malrotated. Right ovary: The right ovary measures 1.1 x 1.0 x 1.2 cm. The right ovary is normal in size and echotexture. Left ovary: The left ovary measures 1.3 x 0.8 x 0.8. cm. The left ovary is normal in size and echotexture. Pelvic fluid: none. US/US pelvic and transvaginal IMPRESSION: 1. Uterine fibroids as described. 2. IUD which appears malrotated. Electronically signed by: Rohit Minor MD 08/25/2024 07:04 AM EDT
--- OUTSIDE RECORDS SUMMARY | 2024-08-24 18:40 | XMS_ITS | Clinical Summary ---
Author Organization [facility] ity Address [address] [place] [address] Care Team Providers Care Take Away Attendant Name Role Phone Unavailable Primary Care Provider [...] age to complete this topic Meningococcal B Vaccine Aged Out No l onger eligible based on patient's age to complete [...]
--- OUTSIDE RECORDS SUMMARY | 2024-08-24 18:40 | XMS_ITS | Continuity of Care Document ---
Author Organization [facility] ter Address [address] [place] [address]- Care Team Providers Care Manipulative Therapy Specialist Name Role Phone Raissa WESTBROOK, Mil Long Primary Care Physician Encounter [facility] Date(s): 08/21/24 - 08/21/[address] [address]- Encounter Diagnosis Chest pain(Final) - 08/21/24 Discharge Disposition: A-D/C Home Attending Physician: Larissa Munson DO Admitting Physician: Larissa Munson DO Referring Physician: Not on Staff, Referring MD Encounter Type: Disch ES Allergies, Adverse Reactions, Alerts No Known Allergies Medications Humira = 40 mg, Subcutaneous Infusion, Once, 0 Refills, Maintenance, 03/19/11 9:51:53 AM EDT Start Date: 03/19/11 Status: Ordered Repeat number: 1 MorPHINE Inj 4 mg, Injection, IV Push Slowly, Every 5 minutes for 3 doses/times, PRN for Pain , Moderate, and SBP greater than 100, Routine, 08/21/24 3:27:00 PM EDT Start Date: 08/21/24 Stop Date: 08/22/24 Status: Discontinued Repeat number: 1 Percocet-5/325 325 mg-5 mg oral tablet 2 tablet, By Mouth, Every 6 hours, PRN Pain, # 16 tablet, 0 Refills, Maintenance, 07/29/10 2:09:13 PM EDT Start Date: 07/29/10 Status: Ordered Quantity: 16.0 Unit: tablet Repeat number: 1 Results Radiology Reports * Exam Date Time Procedure Performing Provider Status 08/21/24 12:24 PM Chest 2 Views Frontal and Lat Hal Nagel; Maura (Verified) Notes: (Chest 2 Views Frontal and Lat) Reason For Exam: Shortness of Breath, Fever;Other: RESULT: Chest 2 Views Frontal and Lat Chest 2 Views Frontal and Lat Hx of Present Illness: Patient coming from home, reports mid-sternal CP with radiation down the left arm that causes occasional numbness.; Reason: Other:; Shortness of Breath, Fever; Clinical Question(s): Pneumonia COMPARISON: 04/15/2023 FINDINGS: LINES AND TUBES: None. LUNGS AND PLEURA: Clear lungs. Normal pulmonary vascularity. No pleural effusion. No pneumothorax. HEART, MEDIASTINUM AND ADEN: Heart is normal in size. Normal mediastinal and hilar contour. BONES AND SOFT TISSUES: No acute abnormality. IMPRESSION: No focal pulmonary consolidation. WSN: [id number] Ordering Physician: Randal Bill Dictated By: Jeronimo Hernandez MD Dictated Date/Time: 08/21/24 12:30 p Reviewed By: Jeronimo Hernandez MD Signed By: Jeronimo Hernandez MD Signed Date/Time: 08/21/24 12:30 pm Transcribed By: IGOR Transcribed Date/Time: 08/21/24 12:30 pm Vital Signs Most recent to oldest [Reference Range]: 1 2 Height 158 cm (08/21/24 12:14 PM) 158 cm (08/21/24 11: AM) Weight 61 kg (08/21/24 12:14 PM) 61 kg (08/21/24 11: AM) Oxygen Saturation [94-100 %] 100 % (08/21/24 11:20 AM) 100 % (08/21/24 11:15 AM) Pulse Rate [55-90 bpm] 73 bpm (08/21/24 11:20 AM) 83 bpm (08/21/24 11:15 AM) Body Mass Index [18.5-24.99 kg/m2] 24.44 kg/m2 (08/21/24 11:20 AM) Blood Pressure [90-138/55-84 mm Hg] 144/ 76mm Hg *H* (08/21/24 11:20 AM) Respiratory Rate [16-30 br/min] 18 br/mi n (08/21/24 3:24 PM) 18 br/min (08/21/24 11:20 AM) Temperature [96.8-100.4 DegF] 98.2 DegF (08/21/24 11:20 AM) Mode of Delivery (Oxygen) Room air (08/21/24 11:20 AM) Blood pressure sites Arm, left (08/21/24 11:20 AM) Temperature Route Oral (08/21/24 11:20 AM) Dry Weight 61 kg (08/21/24 12:14 PM) 61 kg (08/21/24 11:20 AM) Weight Obtained Via Patient/family state d (08/21/24 11:20 AM) Dry Weight Obtained Via Patient/family s tated (08/21/24 11:20 AM) EKG study * Event Display: ECG 12-Lead Authored Date: Please click on pdf link to open report * Event Display: ECG 12-Lead Authored Date: Ventricular Rate: 77 BPM Atrial Rate: 77 BPM P-R Interval: 130 ms QRS Duration: 78 ms Q-T Interval: 400 ms QTC Calculation(Bazett): 452 ms P Jordan: 63 degrees R Jordan: 14 degrees T Jordan: 47 degrees Normal sinus rhythm Normal ECG When compared with ECG of 15-Apr-2023 14:03, No significant change was found Confirmed by ALICIA CAMERON MD ([id number]) on 08/21/2024 6:04:05 PM Erwin: ALICIA CAMERON MD Patient Care team information Care Team Personnel Name: Mil Haji MD Position: [facility] Outreach Member Role: PCP Address: [address] [place] [address] Telecom: Name: Celeste Arguello RN Position: [facility] RN Member Role: Primary Care Nurse Care Team Related Persons Name: ALONDRA MOREL Name: ED ZEPEDA Insurance Providers Guarantor name: ELVIS Health Plan Information #: 1 Payer: [employer] Member Number: [id number] Policy Number: NA Group Number: NA Health Plan Information #: 2 Payer: [employer] Member Number: [id number] Policy Number: NA Group Number: NA
--- OUTSIDE RECORDS SUMMARY | 2024-08-24 18:40 | XMS_ITS | Clinical Summary ---
Author Organization [facility] Address [address] [place] [address] [address] [place] [address] Care Team Providers Care Stock Repairer Name Role Phone Unavailable Primary Care Provider [...] mRNA E6/E7 rflx Not Detected Not Detected [facility] Comment: Methodology: Family Counselor-Mediated Amplification This assay detects E6/E7 viral messenger RNA (mRNA) from 14 high-risk HPV types (16,18,31,33,35,39,45,51,52,56,58,59,66,68). The analytical performance characteristics of this assay have been determined by [employer]. The modifications have not been cleared or approved by the FDA. This assay has been validated pursuant to the CLIA regulations and is used for clinical purposes. For additional information, please refer to http://education.DataCore Software/faq/YCP310g0 (This link if provided for information/ educational purposes only.) THIS TEST WAS PERFORMED AT: [facility] [address] [place] [address],[address] [place], [place] ??[phone] JOSE MEZA MD 08/15/2021 7:30 AM EDT us Armando Smallwood MD HISTORICAL/NON ORDERABLE LABS Fi nal Result [facility] [address] * 3D DIGITAL DAINA SCR MAMMO 1 (11/25/2017 11:21 AM EDT) Anatomical Region Laterality Modality Breast Bilateral Mammography 11/25/2017 11:2 1 AM EDT Narrative 11/25/2017 11:23 AM EDT Refer to the Notes tab for result details [facility] Procedure: 3D DIGITAL DAINA SCR MAMMO 1 Procedure Note ProviderMichele MD - 08/10/2022 Refer to the Notes tab for result details [facility] Procedure: 3D DIGITAL DAINA SCR MAMMO 1 us Zoila Moreland MD IMG BI PROCEDURES Final Result from Last 3 Months or Most Recently Relevant to Health Maintenance Insurance [facility] C3
== END 2024-08-24 15:46 | disposition home or self-care (01) ==
LOC: HO.US 15:45
PROVIDERS: PCP Family Medicine; Visit Provider Obstetrics & Gynecology
DX: D25.9 Leiomyoma of uterus, unspecified (principal)
CPT/HCPCS: 76830; 76856

== ENCOUNTER → 2024-08-24 15:49 | Outpatient (BNV) | payer OTHER, SELFPAY | PROVIDERS: PCP Family Medicine; Visit Provider Radiology Diagnostic Radiology | DX: D25.9 Leiomyoma of uterus, unspecified (principal) | CPT/HCPCS: 76830; 76856 ==

== ENCOUNTER 2024-08-26 07:48 | Outpatient (AMB) | payer OTHER, SELFPAY ==
--- NOTE | 2024-08-26 07:50 | A.OFFVIS_ITS ---
Vital Signs 08/26/24 07:52 Height 5 ft 2 in Weight 142 lb BMI 26.0 BP 108/64 Intake Visit Reasons: IUD removal and insertion Geology Scientist Required: Yes Geology Scientist Language: Circulation Supervisor Services: Geology Scientist Present (in person) Geology Scientist Name: Francisca FELIPE Information Interpreted: non-clinical & clinical Motor Vehicle License Clerk: Motor Vehicle License Clerk Present (Francisca FELIPE) Accompanied by: Self / Same As Patient Allergies indomethacin [From INDOCIN] Allergy (Unknown, Verified 08/26/24 08:00) RASH Is last menstrual period known: No (mirena) Post menopausal: Yes HPI Comments Details: Presenting for ultrasound follow-up. Ultrasound done recently showed the following: Uterus: The uterus is normal in size, measuring 7.5 x 3.8 x 5.4 cm. Myometrium has a normal echotexture. There is a left sided fibroid measuring 3.4 x 3.3 x 3.0 cm (previously 3.0 x 3.2 x 3.3 cm). An additional 5 x 3 x 5 mm fibroid is noted in the fundus. Endometrium: The endometrial stripe measures 2 mm in thickness. An IUD is noted which appears malrotated. Right ovary: The right ovary measures 1.1 x 1.0 x 1.2 cm. The right ovary is normal in size and echotexture. Left ovary: The left ovary measures 1.3 x 0.8 x 0.8. cm. The left ovary is normal in size and echotexture. Pelvic fluid: none. [facility] Medical History Fibula fracture Arthritis Surgical History History of lumpectomy Tubal ligation status Family History Father No problems noted. Mother No problems noted. Social History Housing: House Patient Tobacco Use Status: Never used Tobacco e-Cigarette/Vaping Use: Never Used Second Hand Smoke Exposure: No service: No Current occupational status: unemployed and disabled Current occupation: right handed Current occupational exposures/hazards: No Cognitive needs: No Hearing needs: No Vision needs: Yes Female Reproductive History Menstrual Age of Menarche: 9 Physical Exam Vital Signs: Last Vital Signs BP 108/64 08/26/24 07:52 BMI result Body Mass Index 26.0 Office Procedures IUD Insert/Removal Details Details: The patient is presenting for IUD removal and IUD reinsertion. Her last menstrual period was within the last 5 days, Urine test was done in the office and was negative; All the contraindications were excluded. The following possible complications were discussed with the patient: Intrauterine , Ectopic , Sepsis, Pelvic Infection, Irregular Bleeding and Amenorrhea, Perforation, Expulsion, Ovarian Cysts, Breast Cancer. The following adverse effects were discussed with the patient: alteration of menstrual bleeding pattern, including: unscheduled uterine bleeding decreased uterine bleeding increased scheduled uterine bleeding female genital tract bleeding ,amenorrhea , genital discharge , vulvovaginitis , breast pain , benign ovarian cyst and associated complications , dysmenorrhea , Gastrointestinal disorders abdominal/pelvic pain, headache/migraine , back pain , acne , depression Alternative options were discussed with the patient including but not limited: control pills, patch, NuvaRing, Depo-medroxyprogesterone acetate, Nexplanon, copper IUD, sterilization, vasectomy, others The procedure was explained in detail to patient , at the end patient signed the informed consent obtained. Alternative options were discussed with the patient The patient signed the consent and agreed with the plan; all questions answered. Urine test was done in the office and was negative Preop dx: Requesting IUD removal and Reinsertion Op: IUD removal and Mirena insertion Post op dx: same EBL= 10 cc Procedure: The patient was put in the dorsal lithotomy position a speculum was inserted in the vagina the IUD thread identified. Using a Francisca clamp the thread was grasped and the IUD pulled out with no complications. A no touch technique was used throughout the procedure. A speculum was placed into vagina and cervix was cleaned with betadine). A tenaculum was placed. A plastic sound was advanced through the external and internal os until it reached the fundus of the uterus, the depth was 8 cm. The sound was then withdrawn. The IUD was loaded in a sterile manner and advanced into position. The string was visualized and cut to 3 cm. Tenaculum site hemostatic. All instruments removed from vagina. Patient tolerated the procedure well. NO complications were noted. Patient was instructed to call for fever over 100.4, significant pain unrelieved by Motrin, IUD expulsion, heavy bleeding, or abnormal discharge. In addition, the following clinical considerations were discussed with the patient to call for removal: A stroke or heart attack ,Very severe or migraine headaches ,Unexplained fever ,Yellowing of the skin or whites of the eyes, as these may be signs of serious liver problems , or suspected , Pelvic pain or pain during sex ,HIV positive seroconversion in herself or her partner , Possible exposure to sexually transmitted infections Unusual vaginal discharge or genital sores , severe vaginal bleeding or bleeding that lasts a long time, or if she misses a menstrual period, Inability to feel Mirena's threads Counseled the patient that the IUD does not protect against STI's, recommended use of condoms for the first 7 days post insertion and explained to the patient that condoms are recommended for patients at risk for sexually transmitted infections. Follow up appointment made for 4 weeks following insertion. Date of removal in no more than five years from today?s date was d/w patient. This note was generated with a voice recognition program. Some errors may have been overlooked during the review of this note. Sometimes these errors may affect the content or meaning of a given sentence. [id number] Insertion Procedure code (CPT) selection complete Office Meds Mirena 21 mcg/24 hr (up to 8 years) 52 mg intrauterine device Performing Provider: Armando Smallwood MD Performing Location: [facility] [place] [facility] Documented (not given) by: Armando Smallwood MD on 08/26/24 08:10 Dose Route Admin Location Dispensed Lot Number Expiration Date [facility] Chief Business Development Officer 1 device intrauterine ea Assessment & Plan Assessment & Plan (1) Malpositioned IUD: Code(s): T83.32XA - Displacement of intrauterine contraceptive device, initial encounter Category: Medical Plan: Discussed with the patient the malpositioned of the Mirena IUD, recommended IUD removal and reinsertion. GC/CT taken. Mirena IUD removal and insertion was done, see procedure (2) Uterine myoma: Code(s): D25.9 - Leiomyoma of uterus, unspecified Category: Medical Plan: Discussed with the patient the findings on pelvic ultrasound & the risk of myosarcoma; in addition reviewed with the patient that malignancy and pre malignancy cannot be ruled out without hysterectomy for pathological evaluation ; furthermore, explained to the patient the limitation of pelvic ultrasound and endometrial biopsy in the setting. Discussed with the patient the options of treatment including expectant management versus hysterectomy; the pros and cons, risks benefits of each approach were discussed with the patient including the fact that in cases of myosarcoma, surgical treatment can lead to early diagnosis and positively affects the prognosis; after further discussion, the patient decided to proceed with expectant management. Will repeat pelvic ultrasound periodically. Instructions given to patient to call in case any of the following occurs: pressure symptoms, abnormal uterine bleeding, pelvic pain; and to schedule a 12 months pelvic ultrasound (order placed) and a follow-up appointment . All questions answered, the patient verbalized understanding and agreed with the plan . Orders: Orders AMB IUD Insertion/Removal - Practice Supplied Today Z30.433 - Encounter for removal and reinsertion of intrauterine contraceptive device US pelvic and transvaginal 12 Months T83.32XA - Displacement of intrauterine contraceptive device, initial encounter Medications: New Mirena (levonorgestrel) 1 device intrauterine ONCE 1 ea 0RF IUD removal and insertion NS Z30.433 - Encounter for removal and reinsertion of intrauterine contraceptive device Coding Level of Care Code Est Pt Level 3 (20902) Procedure Only Diagnoses Malpositioned IUD T83.32XA Uterine myoma D25.9 CPT Codes Details - CPT: 15764-BVX Insertion ([id number])
[2024-08-26 07:52] VITALS: BP 108/64; BMI 26.0
--- OUTSIDE RECORDS SUMMARY | 2024-08-26 07:52 | XMS_ITS | Clinical Summary ---
Author Organization [facility] ity Address [address] [place] [address] Care Team Providers Care Facilities Administrator Name Role Phone Unavailable Primary Care Provider [...] - 2023-2 5 season) 2024 Influenza Vaccine (Season Ended) 2025 HIB Vaccines Aged Out No longer eligi [...]
--- OUTSIDE RECORDS SUMMARY | 2024-08-26 07:52 | XMS_ITS | Clinical Summary ---
Author Organization [employer] Address [address] [place] [address] [address] [place] [address] Care Team Providers Care Nailhead Operator Name Role Phone Unavailable Primary Care Provider [...] mRNA E6/E7 rflx Not Detected Not Detected [facility] Comment: Methodology: Processes Chemical Design Engineer-Mediated Amplification This assay detects E6/E7 viral messenger RNA (mRNA) from 14 high-risk HPV types (16,18,31,33,35,39,45,51,52,56,58,59,66,68). The analytical performance characteristics of this assay have been determined by [employer]. The modifications have not been cleared or approved by the FDA. This assay has been validated pursuant to the CLIA regulations and is used for clinical purposes. For additional information, please refer to http://education.[employer]/faq/QDC735m8 (This link if provided for information/ educational purposes only.) THIS TEST WAS PERFORMED AT: [employer] [address] [place] [address],[address] [place], [place] ??[id number] JOSE MEZA MD 08/15/2021 7:30 AM EDT us Armando Smallwood MD HISTORICAL/NON ORDERABLE LABS Fi nal Result [facility] [address] * 3D DIGITAL DAINA SCR MAMMO [...] Most Recently Relevant to Health Maintenance Insurance [facility] C3
== END 2024-08-26 08:16 | disposition home or self-care (01) ==
LOC: HO.HWS 07:48
PROVIDERS: PCP Family Medicine; Visit Provider Obstetrics & Gynecology
DX: D25.9 Leiomyoma of uterus, unspecified (principal); T83.32XA Displacement of intrauterine contraceptive device, initial encounter; Z30.433 Encounter for removal and reinsertion of intrauterine contraceptive device
CPT/HCPCS: 58300; 58301; 99213

== ENCOUNTER 2024-08-26 07:48 | Outpatient (REF) | payer OTHER, SELFPAY ==
--- OUTSIDE RECORDS SUMMARY | 2024-08-26 08:48 | XMS_ITS | Clinical Summary ---
Author Organization [employer] Address [address] [place] [address] [address] [place] [address] Care Team Providers Care Rural Service Engineer Name Role Phone Unavailable Primary Care Provider [...] Detected [facility] Comment: Methodology: Manufacturing Finance Manager-Mediated Amplification This assay detects E6/E7 viral messenger RNA (mRNA) from 14 high-risk HPV types (16,18,31,33,35,39,45,51,52,56,58,59,66,68). The analytical performance characteristics of this assay have been determined by [employer]. The modifications have not been cleared or approved by the FDA. This assay has been validated pursuant to the CLIA regulations and is used for clinical purposes. For additional information, please refer to http://education.[employer]/faq/NJP751g1 (This link if provided for information/ educational purposes only.) THIS TEST WAS PERFORMED AT: [employer] [address] [place] [address],[address] [place], [place] ??[phone] JOSE MEZA MD 08/15/2021 7:30 AM EDT us Armando Smallwood MD HISTORICAL/NON ORDERABLE LABS Fi nal Result [facility] [address] * 3D DIGITAL DAINA SCR MAMMO [...] Most Recently Relevant to Health Maintenance Insurance [facility] C3
--- OUTSIDE RECORDS SUMMARY | 2024-08-26 08:48 | XMS_ITS | Clinical Summary ---
Author Organization [facility] ity Address [address] [place] [address] Care Team Providers Care Gunstock Spray Unit Feeder Name Role Phone Unavailable Primary Care Provider [...]
[2024-08-26 14:09] LABS: CT PCR NOT DETECTED (Not Detect.); NG PCR NOT DETECTED (Not Detect.)
== END 2024-08-26 07:49 | disposition home or self-care (01) ==
LOC: HO.LNP 07:48
PROVIDERS: PCP Family Medicine; Visit Provider Obstetrics & Gynecology
DX: Z30.433 Encounter for removal and reinsertion of intrauterine contraceptive device (principal); D25.9 Leiomyoma of uterus, unspecified
CPT/HCPCS: 58300; 58301; 87491; 87591; 99212; J7298

== ENCOUNTER 2024-09-30 08:50 | Outpatient (AMB) | payer OTHER, SELFPAY ==
--- NOTE | 2024-09-30 09:08 | MHC.PC.OV ---
Vital Signs 09/30/24 09:10 Height 5 ft 2 in Weight 151 lb 4 oz BMI 27.7 BP 110/62 Blood Pressure Location Lt brachial Position Sitting Respiration 14 Pulse 68 Pulse Source Pulse Oximeter Temp 98.0 F Temp Source Oral Pulse Oximetry (%) 98 Oxygen Delivery Method Room Air Intake Visit Reasons: CPE with f/u labs and health maintenance Allergies indomethacin [From INDOCIN] Allergy (Unknown, Verified 09/30/24 09:08) RASH Medication List - Last Reconciled 09/30/24 by Mil Haji MD acetaminophen (Tylenol) 650 mg (2 x 325 mg) PO Q6H PRN ferrous sulfate 325 mg PO DAILY 90 days gabapentin 200 mg (2 x 100 mg) PO BID 90 days Tobacco use date assessed: 09/30/24 Dental Screening Dental Screen Date: 09/30/24 Did you have a dental visit in the last 12 months?: Yes Did you have a dental problem in the last 6 months where you did not have access to dental care?: No Was dental information given to patient?: No HPI CPE with f/u labs and health maintenance HPI Details 54 y/o female presents for an extended exam with f/u labs and health maintenance. No recent labs to review. Had been having some complaints of LE weakness, unstedy gait, L sided weakness. She reports ongoing weakness. ED visit 08/21/24 for chest pain. Bloodwork was reassuring. Chest x-ray with no pneumonia. EKG within normal limits. PHQ-20, ANIKA-7 17 today. [facility] [employer] [facility] [employer] Medical History Fibula fracture Arthritis Surgical History History of lumpectomy Tubal ligation status Family History Father No problems noted. Mother No problems noted. Social History Housing: House Patient Tobacco Use Status: Never used Tobacco e-Cigarette/Vaping Use: Never Used Second Hand Smoke Exposure: No service: No Current occupational status: unemployed and disabled Current occupation: right handed Current occupational exposures/hazards: No Cognitive needs: No Hearing needs: No Vision needs: Yes Female Reproductive History Menstrual Age of Menarche: 9 Questionnaire PHQ-9 Over the last 2 weeks, how often have you been bothered by any of the following problems? 1. Little interest or pleasure in doing things: more than half the days 2. Feeling down, depressed, or hopeless: more than half the days 3. Trouble falling or staying asleep, or sleeping too much: nearly every day 4. Feeling tired or having little energy: nearly every day 5. Poor appetite or overeating: more than half the days 6. Feeling bad about yourself - or that you are a failure or have let yourself or your family down: nearly every day 7. Trouble concentrating on things, such as reading the newspaper or watching television: nearly every day 8. Moving or speaking so slowly that other people could have noticed. Or the opposite - being so fidgety or restless that you have been moving around a lot more than usual: more than half the days 9. Thoughts that you would be better off or of hurting yourself in some way: not at all Total score: 20 Depression Screening Interpretation: Positive Depression Screening Follow-up: In treatment Depression Screening Done: Yes 55047 - PHQ-9 Billing: Yes Source: Developed by Drs. Rohit Leyva, Silvia Raman, Felix Kraus and colleagues, with an educational satinder from [employer]. Thrive Questionnaire Date Thrive assessed: 02/03/24 I am a: Patient What is your living situation today?: I have a steady place to live Within the past 12 months, did the food you bought not last and you didn't have the money to get more?: I choose not to answer this question Within the past 12 months, did you worry whether your food would run out before you got money to buy more?: I choose not to answer this question Do you have trouble paying for medicines?: I choose not to answer this question Do you have trouble getting transportation to medical appointments?: I choose not to answer this question Do you have trouble paying your heating and electricity bill?: I choose not to answer this question Do you have trouble taking care of your child, family member or friend?: I choose not to answer this question Do you have trouble with day-to-day activities such as bathing, preparing meals, shopping, managing finances, etc.?: I choose not to answer this question Are you currently unemployed and looking for a job?: I choose not to answer this question Are you interested in more education?: I choose not to answer this question Please select the resources that you would like help with: Daily support Currently or been in a relationship where the following occur: No concerns reported THRIVE Score: 0 AUDIT C Alcohol Use Questionnaire (AUDIT-C) 1. How often do you have a drink containing alcohol?: Never Total Score: 0 ANIKA-7 AMB Questionnaire ANIKA-7 Date ANIKA - 7 assessed: 09/30/24 Feeling nervous, anxious, or on edge: 3 = Nearly every day Not being able to stop or control worryin = Nearly every day Worrying too much about different things: 3 = Nearly every day Trouble relaxin = More than half the days Being so restless that it is hard to sit still: 2 = More than half the days Becoming easily annoyed or irritable: 2 = More than half the days Feeling afraid as if something awful might happen: 2 = More than half the days Total ANIKA-7 score (0-4 normal; 5-9 mild; 10-14 moderate; 15-21 severe): 17 Source: Developed by Drs. Rohit Leyva, Silvia Raman, Felix Kraus and colleagues, with an educational satinder from [employer]. ANIKA-7 Assessment Billing ANIKA-7 Assessment Tool: ANIKA-7 Assessment 47654 Review of Systems Const Denies chills, Denies fatigue, Denies fever(s), Denies headache(s) and Denies weakness Eyes Denies change in vision ENT Denies dizziness and Denies headache(s) Card Denies chest pain, Denies lightheadedness, Denies dyspnea and Denies other (Palpitations) Resp Denies cough, Denies dyspnea, Denies wheezing and Denies other ( shortness of breath) GI Denies abdominal pain, Denies melena, Denies hematochezia, Denies change in bowel habits, Denies dyspepsia and Denies nausea Denies hematuria and Denies dysuria Musc Denies numbness and Denies tingling Skin/Breast Denies rash, Denies unusual bruising and Denies wounds Neuro Denies dizziness, Denies headache(s), Denies numbness, Denies Sensory deficit (Neuro), Denies tingling, Denies paresthesias and Denies weakness Psych Reports anxiety and Reports depression Endo Denies fatigue Serge/Lymph Denies easy bleeding and Denies easy bruising Aller/Immun Denies wheezing Physical exam (Primary Care) Vital Signs: Last Vital Signs Temp 98.0 F 09/30/24 09:10 Pulse 68 09/30/24 09:10 Resp 14 09/30/24 09:10 BP 110/62 09/30/24 09:10 Pulse Ox 98 09/30/24 09:10 Oxygen Delivery Method Room Air 09/30/24 09:10 BMI result Body Mass Index 27.7 Tobacco/Smoking Status: Tobacco use Status Tobacco use date assessed 09/30/24 09/30/24 09:11 Patient Tobacco Use Status Never used Tobacco 09/30/24 09:11 e-Cigarette/Vaping Use Never Used 09/30/24 09:11 PHQ-9: PHQ-9 Score PHQ-9: Total score 20 09/30/24 09:11 Depression Screening Interpretation: Positive Depression Screening Follow-up: In treatment Thrive Assessment: Date of Thrive Assessment Date Thrive assessed 02/03/24 09/30/24 09:11 Currently or been in a relationship where the following occur: No concerns reported Const General: no acute distress and well developed Nutritional Appearance: well nourished Orientation/consciousness: patient oriented x3 HENMT Head: Yes normocephalic and Yes atraumatic Ears: hearing grossly normal bilaterally and TM's normal bilaterally General nose exam: Normal external nose present and Normal nares present Mouth: Normal oral and palatal mucosa present and moist mucous membranes Teeth and gingiva: dentition normal Throat: Yes posterior oropharynx normal Eyes General: appearance normal, both eyes and all related structures Pupils: Equal, round and reactive pupils present EOM: EOMs intact bilaterally Neck Neck: Yes normal visual inspection, Yes no lymphadenopathy and Yes trachea midline Thyroid: Thyroid normal Carotids: no bruits Lymphatic: no lymphadenopathy noted Chest Chest palpation & inspection: normal inspection of the chest Resp Effort & Inspection: normal respiratory effort Auscultation: clear to auscultation bilaterally Cardio Rate: regular rate Rhythm: regular rhythm Heart sounds: S1 normal heart sound present, S2 normal heart sound present, no gallops, no murmurs and no rubs Bruits: no abdominal aortic bruits and no carotid bruits GI Palpation (GI): No Abdominal aortic bruit present, Soft to palpation, nontender, No hepatosplenomegaly present and No Rebound tenderness present Auscultation: normal bowel sounds General: Yes no CVA tenderness Back/Spine/Pelvis Back: no CVA tenderness Cervical Spine: cervical ROM normal and No Cervical spine tenderness Thoracic/Lumbar Spine: thoraco-lumbar ROM normal, No pain with thoraco-lumbar ROM, No thoracic spinal tenderness and No lumbar spinal tenderness Skin Lesions: no lesions Rashes: no rashes Trauma: no lacerations or abrasions Wounds: no wounds Nails: normal Neuro General: patient oriented x3 and gait normal Cranial nerves: Yes Equal, round and reactive pupils present Cognition (Neuro): normal cognition Gait exam (Neuro): Normal gait present Motor exam (neuro): 5/5 motor strength present throughout Sensory Exam: No Sensory deficit (Neuro) Deep tendon reflexes (DTR's): Right patellar reflex intensity grade: 2+ and Left patellar reflex intensity grade: 2+ Extrem General: Yes normal to inspection and No edema Psych Appearance: grossly normal Affect: normal affect Attitude: cooperative Thought process: Normal thought process present Coding Level of Care Code Est Pt Level 4 (07585) Diagnoses Chest pain R07.9 Left-sided weakness R53.1 Lower extremity weakness R29.898 Unsteady gait R26.81 Depression with anxiety F41.8 Constipation K59.00 Screening for colon cancer Z12.11 Screening for cervical cancer Z12.4 Breast cancer screening by mammogram Z12.31 Adult general medical exam Z00.00 Additional Codes ANIKA-7 Assessment Billing - ANIKA-7 Assessment Tool: ANIKA-7 Assessment 67930 ([id number]) PHQ-9 - 43006 - PHQ-9 Billing: Yes ([id number]) Assessment & Plan Assessment & Plan (1) Chest pain: Code(s): R07.9 - Chest pain, unspecified Category: Medical Plan: Recent?visit?to?[facility]?for?left-sided?chest?pain. Ruled?out?for?ACS. Particularly,?her?EKG?was?within?normal?limits?and?her?troponin?levels?were?negative. Recommended?repeat?EKG?which?was?done?today EKG: ?Normal?sinus?rhythm,?normal?axis,?no?hypertrophy,?no?ST-T-wave?changes Likely?noncardiac?pain. ?Also?has?left-sided?weakness?and?pain - see?below (2) Left-sided weakness: Code(s): R53.1 - Weakness Category: Medical Plan: Patient?has?a?history?of?left-sided?weakness?and?likely?some?left-sided?pain?or?discomfort. Had?acquired?an?MRI?at?last?visit?though?patient?did?not?follow-up. 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 MRI?as?mentioned?above Referred?to?neurology (4) Unsteady gait: Code(s): R26.81 - Unsteadiness on feet Category: Medical Plan: As?above (5) Depression with anxiety: Code(s): F41.8 - Other specified anxiety disorders Category: Medical Plan: Significant?depression?anxiety Referring?her?for?a?therapist?today (6) Constipation: Code(s): K59.00 - Constipation, unspecified Category: Medical Plan: Hydrate?well Soluble?fiber (7) Screening for colon cancer: Code(s): Z12.11 - Encounter for screening for malignant neoplasm of colon Category: Medical Plan: Patient?says?she?has?never?had?a?colonoscopy Referred?to?Gastroenterology (8) Screening for cervical cancer: Code(s): Z12.4 - Encounter for screening for malignant neoplasm of cervix Category: Medical Plan: Followed?by?[facility] Up-to-date Follow-up?as?recommended (9) Breast cancer screening by mammogram: Code(s): Z12.31 - Encounter for screening mammogram for malignant neoplasm of breast Category: Medical Plan: Mammogram?in?January?showed?no?suspicious?findings Recommended?annual?screening (10) Adult general medical exam: Code(s): Z00.00 - Encounter for general adult medical examination without abnormal findings Category: Medical Plan: 54-year-old?female?presents?for?an?extended?exam Orders: Orders Microalbumin, Random (w Creat) Today I10 - Essential (primary) hypertension TSH reflex Free T4 Today Z00.00 - Encounter for general adult medical examination without abnormal findings IRON PROFILE Today D64.9 - Anemia, unspecified AMB EKG-In Office Today R07.9 - Chest pain, unspecified Comprehensive Mershon. Panel Fast Today Z00.00 - Encounter for general adult medical examination without abnormal findings Lipid Panel Today Z00.00 - Encounter for general adult medical examination without abnormal findings UA CC w/rflx Micro + Cult Today Z00.00 - Encounter for general adult medical examination without abnormal findings Complete Blood Count Auto Diff Today D64.9 - Anemia, unspecified, Z00.00 - Encounter for general adult medical examination without abnormal findings Referrals Nurse Navigator Referral F41.8 - Other specified anxiety disorders Neurology Referral R26.81 - Unsteadiness on feet, R53.1 - Weakness, R93.89 - Abnormal findings on diagnostic imaging of other specified body structures Gastroenterology Referral Z12.11 - Encounter for screening for malignant neoplasm of colon Medications: New calcium polycarbophil (FiberCon) 625 mg PO DAILY 30 days 30 tabs 2RF
[2024-09-30 09:10] VITALS: BP 110/62; PULSE 68; RESP 14; TEMP 36.7; O2SAT 98; BMI 27.7
--- OUTSIDE RECORDS SUMMARY | 2024-09-30 09:18 | XMS_ITS | Clinical Summary ---
Author Organization [employer] Address [address] [place] [address] [address] [place] [address] Care Team Providers Care Manager Game Name Role Phone Unavailable Primary Care Provider [...] mRNA E6/E7 rflx Not Detected Not Detected [facility] Comment: Methodology: Hotel Assistant Manager-Mediated Amplification This assay detects E6/E7 viral messenger RNA (mRNA) from 14 high-risk HPV types (16,18,31,33,35,39,45,51,52,56,58,59,66,68). The analytical performance characteristics of this assay have been determined by [employer]. The modifications have not been cleared or approved by the FDA. This assay has been validated pursuant to the CLIA regulations and is used for clinical purposes. For additional information, please refer to http://education.[employer]ika/faq/FBT561v1 (This link if provided for information/ educational purposes only.) THIS TEST WAS PERFORMED AT: [facility] [address] [place] [address] [address]LO[address] [place], [place] ??[phone] JOSE MEZA MD 08/15/2021 7:30 AM EDT Armando Smallwood MD HISTORICAL/NON ORDERABLE LABS Fi nal Result [facility] [address] * 3D DIGITAL DAINA SCR MAMMO [...] Most Recently Relevant to Health Maintenance Insurance [facility] C3
--- OUTSIDE RECORDS SUMMARY | 2024-09-30 09:18 | XMS_ITS | Clinical Summary ---
Author Organization [facility] ity Address [address] [place] [address] Care Team Providers Care Nitrator Operator Name Role Phone Unavailable Primary Care [...]
== END 2024-09-30 09:44 | disposition home or self-care (01) ==
LOC: HO.HMCFM 08:51
PROVIDERS: PCP Family Medicine; Visit Provider Family Medicine
DX: R07.9 Chest pain, unspecified (principal); R53.1 Weakness; R29.898 Other symptoms and signs involving the musculoskeletal system; R26.81 Unsteadiness on feet; F41.8 Other specified anxiety disorders; K59.00 Constipation, unspecified; Z12.11 Encounter for screening for malignant neoplasm of colon; Z12.4 Encounter for screening for malignant neoplasm of cervix; Z12.31 Encounter for screening mammogram for malignant neoplasm of breast; Z00.00 Encounter for general adult medical examination without abnormal findings

== ENCOUNTER → 2024-09-30 08:50 | Outpatient (BNVA) | payer OTHER, SELFPAY | PROVIDERS: PCP Family Medicine; Visit Provider Family Medicine | DX: Z00.00 Encounter for general adult medical examination without abnormal findings (principal); R07.9 Chest pain, unspecified; R53.1 Weakness; R29.898 Other symptoms and signs involving the musculoskeletal system; R26.81 Unsteadiness on feet; F41.8 Other specified anxiety disorders; K59.00 Constipation, unspecified; R93.89 Abnormal findings on diagnostic imaging of other specified body structures | CPT/HCPCS: 96127; 99212 ==

== ENCOUNTER 2024-10-13 08:43 | Outpatient (REF) | payer OTHER, SELFPAY ==
--- OUTSIDE RECORDS SUMMARY | 2024-10-13 09:02 | XMS_ITS | Clinical Summary ---
Author Organization [facility] ity Address [address] [place] [address] Care Team Providers Care Cone Cleaner Name Role Phone Unavailable Primary Care Provider [...]
[2024-10-13 09:06] LABS: MANUAL DIFF FLAG NO
[2024-10-13 09:40] LABS: Basophils Percent Auto 0.6 % (0-2); Eosinophils Absolute Auto 0.2 X10*3/uL (0.0-0.4); Eosinophils Percent Auto 3.7 % (0-4); Hematocrit 35.9 % (37.0-47.0); Hemoglobin 11.4 g/dl (12.0-16.0); Imm Gran Abs Auto 0.02 X10*3/uL (0.00-0.03); Imm Gran Pct Auto 0.4 % (0.0-0.4); Lymphocytes Absolute Auto 2.3 X10*3/uL (1.2-4.9); Lymphocytes Percent Auto 43.3 % (20-40); Mean Corpuscular HGB Conc 31.8 g/dl (31.0-35.0); Mean Corpuscular Hemoglobin 25.9 pg (27.0-33.0); Mean Corpuscular Volume 81.4 fL (80.0-98.0); Mean Platelet Volume 10.6 fL (9.4-12.3); Monocytes Absolute Auto 0.4 X10*3/uL (0.1-1.2); Monocytes Percent Auto 7.2 % (2-11); Neutrophils Absolute Auto 2.4 x10*3/uL (2.0-8.3); Neutrophils Percent Auto 44.8 % (45-73); Platelet Count 235 X10*3/uL (160-400); Red Blood Count 4.41 X10*6/uL (4.20-5.50); Red Cell Distribution Width 13.8 % (11.0-16.0); White Blood Count 5.4 X10*3/uL (4.8-10.8)
[2024-10-13 09:46] LABS: Appearance Urine Clear; Color Urine Yellow; Glucose Urine UA Negative (Negative); Leukocyte Esterase Urine Trace (Negative); Nitrite Urine Negative (Negative); Specific Gravity - Urine 1.025 (1.005-1.025); UMIC TRIGGER UA YES; UMIC TRIGGER UACC YES; Urine Blood Trace (Negative); Urine Ketones Trace mg/dL (Negative); Urine Protein Negative (Neg-Trace)
[2024-10-13 09:52] LABS: Bacteria Urine None Seen (None Seen); Hyaline Casts Urine 0-2 /LPF (0-2); RBC Urine 0-2 /HPF (0-2); Squamous Epithelial Cell Urine 0-2 /HPF (0-2); WBC Urine 0-5 /HPF (0-5)
[2024-10-13 10:34] LABS: Alanine Aminotransferase 16 U/L (0-31); Albumin Level 4.6 g/dL (3.5-5.0); Alkaline Phosphatase 57 U/L (39-117); Anion Gap 9 (12-20); Aspartate Amino Transferase 18 U/L (5-31); Bilirubin Total 0.4 mg/dL (0.0-1.0); Blood Urea Nitrogen 11 mg/dL (9-16); Calcium 9.3 mg/dL (8.4-10.2); Carbon Dioxide 28 mmol/L (22-29); Chloride 108 mmol/L (96-108); Cholesterol 196 mg/dL (<200); Estimated Glomerular Filt Rate > 60; Glucose Fasting 90 mg/dL (60-99); HDL Cholesterol 55 mg/dL (>40); Iron 117 mcg/dL (30-160); LDL Cholesterol Calculated 130 mg/dL (<100); Percent Iron Saturation 39 % (15-50); Sodium 141 mmol/L (135-145); Total Iron Binding Capacity 300 mcg/dL (228-428); Total Protein 7.3 g/dL (6.5-8.0); Triglycerides 57 mg/dL (<150); Unsaturated Iron Binding 183 ug/dL
[2024-10-13 10:50] LABS: TSH reflex Free T4 2.78 uIU/mL (0.32-4.0)
[2024-10-13 11:03] LABS: Creatinine Urine 195.97 mg/dL; Microalbum/Creatinine Ratio Ur 5.1 ug/mg cr (<30)
== END 2024-10-13 08:44 | disposition home or self-care (01) ==
LOC: HO.LAB 08:43
PROVIDERS: PCP Family Medicine; Visit Provider Family Medicine
DX: Z00.00 Encounter for general adult medical examination without abnormal findings (principal); D64.9 Anemia, unspecified; I10 Essential (primary) hypertension
CPT/HCPCS: 36415; 80053; 80061; 81001; 82043; 82570; 83540; 84443; 85025

== ENCOUNTER 2024-11-08 09:39 | Outpatient (AMB) | payer OTHER, SELFPAY ==
--- NOTE | 2024-11-08 09:37 | A.OFFPC_ITS ---
Intake Visit Reasons: f/u CPE-labs via telemed Intake Note: patient is scheduled to review lab results Allergies indomethacin (From INDOCIN) Allergy (Unknown, Verified 11/08/24 09:37) RASH Medication List - Last Reconciled 11/08/24 by Mil Haji MD acetaminophen (Tylenol) 650 mg (2 x 325 mg) PO Q6H PRN calcium polycarbophil (FiberCon) 625 mg PO DAILY 30 days ferrous sulfate 325 mg PO DAILY 90 days gabapentin 200 mg (2 x 100 mg) PO BID 90 days Tobacco use date assessed: 09/30/24 Dental Screening Dental Screen Date: 09/30/24 HPI f/u CPE-labs via telemed HPI Details 54 y/o female presents to f/u labs via elemedicine. Labs drawn 10/13/24. Reviewed labs with pt. Mild anemia. Triglycerides 57. TC 196. LDL 130. HDL 55. Has an appt. with Neurology in January for L sided weakness, unsteady gait. [facility] Medical History Fibula fracture Arthritis Surgical History History of lumpectomy Tubal ligation status Family History Father No problems noted. Mother No problems noted. Social History Housing: House Patient Tobacco Use Status: Never used Tobacco e-Cigarette/Vaping Use: Never Used Second Hand Smoke Exposure: No service: No Current occupational status: unemployed and disabled Current occupation: right handed Current occupational exposures/hazards: No Cognitive needs: No Hearing needs: No Vision needs: Yes Female Reproductive History Menstrual Age of Menarche: 9 Questionnaire Thrive Questionnaire Date Thrive assessed: 09/30/24 I am a: Patient What is your living situation today?: I have a steady place to live Within the past 12 months, did the food you bought not last and you didn't have the money to get more?: I choose not to answer this question Within the past 12 months, did you worry whether your food would run out before you got money to buy more?: I choose not to answer this question Do you have trouble paying for medicines?: I choose not to answer this question Do you have trouble getting transportation to medical appointments?: I choose not to answer this question Do you have trouble paying your heating and electricity bill?: I choose not to answer this question Do you have trouble taking care of your child, family member or friend?: I choose not to answer this question Do you have trouble with day-to-day activities such as bathing, preparing meals, shopping, managing finances, etc.?: I choose not to answer this question Are you currently unemployed and looking for a job?: I choose not to answer this question Are you interested in more education?: I choose not to answer this question Please select the resources that you would like help with: Daily support Currently or been in a relationship where the following occur: No concerns reported THRIVE Score: 0 AUDIT C Alcohol Use Questionnaire (AUDIT-C) 3. How often do you have six or more drinks on one occasion?: Never Total Score: 0 ANIKA-7 AMB Questionnaire ANIKA-7 Date ANIKA - 7 assessed: 09/30/24 Source: Developed by Drs. Rohti Leyva, Silvia Raman, Felix Kraus and colleagues, with an educational satinder from [employer]. Physical exam (Primary Care) Tobacco/Smoking Status: Tobacco use Status Tobacco use date assessed 09/30/24 11/08/24 09:38 Patient Tobacco Use Status Never used Tobacco 11/08/24 09:38 e-Cigarette/Vaping Use Never Used 11/08/24 09:38 Thrive Assessment: Date of Thrive Assessment Date Thrive assessed 09/30/24 11/08/24 09:38 Currently or been in a relationship where the following occur: No concerns reported Telehealth Telehealth Telehealth Platform: Telephone Location of provider rendering services: practice address Location of patient: address on file Patient Identification confirmed using: Name, : Yes Telehealth method: voice only Patient verbally consented to treatment: Yes Patient verbally consented to billing insurance company: Yes Patient informed of any privacy concerns related to visit: Yes Minutes spent on Phone/Video with Pt.: 5 Coding Level of Care Code Tele Est Pt Level 2 (54917) Diagnoses Hypercholesterolemia E78.00 Anemia D64.9 Assessment & Plan Assessment & Plan (1) Hypercholesterolemia: Code(s): E78.00 - Pure hypercholesterolemia, unspecified Category: Medical Plan: LDL?cholesterol?is?too?high Will?send?script?for?atorvastatin Recheck?lipids?in?a?few?months (2) Anemia: Code(s): D64.9 - Anemia, unspecified Category: Medical Plan: Mild?anemia Will?continue?to?monitor Medications: New atorvastatin (Lipitor) 10 mg PO BEDTIME 90 tabs 3RF 90 days
--- OUTSIDE RECORDS SUMMARY | 2024-11-08 10:25 | XMS_ITS | Clinical Summary ---
Author Organization [facility] ity Address [address] [place] [address] Care Team Providers Care Train Braker Name Role Phone Unavailable Primary Care Provider [...]
== END 2024-11-08 17:05 ==
LOC: HO.HMCFM 09:39
PROVIDERS: PCP Family Medicine; Visit Provider Family Medicine
DX: E78.00 Pure hypercholesterolemia, unspecified (principal); D64.9 Anemia, unspecified

== ENCOUNTER → 2024-11-08 09:39 | Outpatient (BNVA) | payer OTHER, SELFPAY | PROVIDERS: PCP Family Medicine; Visit Provider Family Medicine | DX: Z13.89 Encounter for screening for other disorder (principal) ==

== ENCOUNTER 2024-12-30 08:43 | Outpatient (REF) | payer OTHER, SELFPAY | END 2024-12-30 08:44 | disposition home or self-care (01) | LOC: HO.LNP 08:43 | PROVIDERS: PCP Family Medicine; Visit Provider Obstetrics & Gynecology | DX: Z30.431 Encounter for routine checking of intrauterine contraceptive device (principal); N95.0 Postmenopausal bleeding | CPT/HCPCS: 58100; 88305; 99212 ==

== ENCOUNTER 2024-12-30 08:43 | Outpatient (AMB) | payer OTHER, SELFPAY ==
--- OUTSIDE RECORDS SUMMARY | 2024-12-30 09:06 | XMS_ITS | Clinical Summary ---
Author Organization [facility] ity Address [address] [place] [address] Care Team Providers Care Italian Tutor Name Role Phone Unavailable Primary Care Provider [...] 2) 2019 Colorectal Cancer Screening: Colonoscopy 04/17/2022 HIV Screening 04/17/2022 Hepatitis C Screening 04/17/2022 Social Influencers of Health Screening 04/17/2022 COVID-19 Vaccine ( - 2023-2 5 season) 2024 Depression Screening 05/19/2024 Influenza Vaccine (#1) 2025 HIB Vaccines Aged Out No longer [...]
--- OUTSIDE RECORDS SUMMARY | 2024-12-30 09:06 | XMS_ITS | Clinical Summary ---
Author Organization [employer] Address [address] [place] [address] [address] [place] [address] Care Team Providers Care Monotype Machinist Name Role Phone Unavailable Primary Care Provider [...] 71 05/15/2022 7:32 PM EST Temperature 36.7 C (98.1 F) 05/15/2022 7:32 PM EST Respiratory Rate 16 05/15/2022 7:32 PM EST [...] Screening 1969 SDOH Screening 1969 Sigmoidoscopy 1969 Disability Screening 1969 Alcohol/Substance Use Screening 1981 Hepatitis C Screening 1987 Pap Smear 1990 Hepatitis B Vaccines (3 of 3 - 19+ 3-dose series) 03/17/2014 10/19/2013, 09/15/2013 Pneumococcal Vaccine: 50+ Years (1 of 1 - PCV) 2019 Zoster Vaccines (1 of 2) 2019 Mammogram 11/26/2019 11/25/2017 Tobacco Screening 05/15/2023 05/15/2022 COVID-19 Vaccine (3 - 2023-2 5 season) 2024 01/17/2021, 12/27/2020 Influenza Vaccine (#1) 2025 4, 06/11/2013, 02/06/2011 Cervical Cancer Screening 08/15/2026 [...] Not Detected [facility] Comment: Methodology: Track Welder-Mediated Amplification This assay detects E6/E7 viral messenger RNA (mRNA) from 14 high-risk HPV types (16,18,31,33,35,39,45,51,52,56,58,59,66,68). The analytical performance characteristics of this assay have been determined by [employer]. The modifications have not been cleared or approved by the FDA. This assay has been validated pursuant to the CLIA regulations and is used for clinical purposes. For additional information, please refer to http://education.Moogi/faq/ZSF192x6 (This link if provided for information/ educational purposes only.) THIS TEST WAS PERFORMED AT: [facility] [address] [place] [address] [address] [address] JOSE MEZA MD 08/15/2021 7:30 AM EDT Armando Smallwood MD HISTORICAL/NON ORDERABLE LABS Fi nal Result [facility] [address] * 3D DIGITAL DAINA SCR MAMMO [...] Most Recently Relevant to Health Maintenance Insurance [facility] C3
--- NOTE | 2024-12-30 09:15 | MHC.OFFVIS ---
Vital Signs 12/30/24 09:21 Height 5 ft 2 in Weight 150 lb BMI 27.4 Intake Visit Reasons: EMB/ IUD check/DO NOT RS Professional Programmer Analyst Required: Yes Professional Programmer Analyst Language: Central Office Operator Services: Professional Programmer Analyst Present (in person) Professional Programmer Analyst Name: Francisca FELIPE Information Interpreted: non-clinical & clinical Acid Purifier: Acid Purifier Present (Francisca FELIPE) Accompanied by: Self / Same As Patient Allergies indomethacin (From INDOCIN) Allergy (Unknown, Verified 12/30/24 09:22) RASH Post menopausal: Yes HPI Comments Details: The patient is presenting for IUD check and EMB . The patient has no complaints 09/09 Proliferative endometrium 10/09 Mirena IUD insertion 01/09 benign endometrium 05/11 inactive endometrium 09/10 IUD malpositioned, Mirena IUD removal and reinsertion [facility] Medical History Fibula fracture Arthritis Surgical History History of lumpectomy Tubal ligation status Family History Father No problems noted. Mother No problems noted. Social History Housing: House Patient Tobacco Use Status: Never used Tobacco e-Cigarette/Vaping Use: Never Used Second Hand Smoke Exposure: No service: No Current occupational status: unemployed and disabled Current occupation: right handed Current occupational exposures/hazards: No Cognitive needs: No Hearing needs: No Vision needs: Yes Female Reproductive History Menstrual Age of Menarche: 9 Review of Systems Const All systems reviewed & are unremarkable except as noted in HPI and below Physical Exam Vital Signs: BMI result Body Mass Index 27.4 General: Yes no CVA tenderness External Female Exam: normal external appearance and normal appearance of the urethra Speculum Exam - Vagina: normal appearance of the vagina, normal palpation, no lesions and no masses Speculum Exam - Cervix: normal appearance of the cervix, normal palpation, no lesions, no masses, nontender and Other cervical findings present (IUD string in place) Bimanual exam- vagina & uterus: normal bimanual exam, normal palpation, uterine size normal, normal palpation, uterine shape normal, No Cervical tenderness present and non-tender Bimanual Exam- Adnexa, other: normal adnexae Back/Spine/Pelvis Back: no CVA tenderness Office Procedures Endometrial Biopsy Details: The patient was counseled regarding the indication and benefits of endometrial sampling to rule out endometrial pathology including not limited to endometrial hyperplasia or endometrial cancer and others; The alternatives (Either do nothing vs. hysteroscopy D&C) & the risks were discussed with the patient including but not limited: pain, uterine perforation, bleeding, infection, possible injury to bladder, bowel, ureter, possible need for blood transfusion with all its possible risks. The patient verbalized understanding all questions answered and signed consent. The patient was placed into the dorsal lithotomy position; a speculum was inserted in the vagina. Using aseptic technique for the procedure, the cervix was cleansed with Betadine. The anterior lip of the cervix was grasped with a single tooth tenaculum. The uterus was sounded to 7 cm with a 4 mm Pipelle was used. Tissues samples were obtained and placed in formalin, in a patient labeled container and sent to the pathology department. At the end of the procedure, there was minimal bleeding noted The patient tolerated the procedure well and was discharged in good condition with the following instructions: Nothing in the vagina until the bleeding stops. No sex until the bleeding stops, to call if any of the following occurs: fever (>100.4), flu-like symptoms, abdominal pain, heavy bleeding, four smelling vaginal discharge. The patient was instructed to schedule a Follow up appointment in 2 weeks to discuss pathology results of the biopsy and treatment options. This note was generated with a voice recognition program. Some errors may have been overlooked during the review of this note. Sometimes these errors may affect the content or meaning of a given sentence. [id number] Biopsy Assessment & Plan Assessment & Plan (1) IUD check up: Code(s): Z30.431 - Encounter for routine checking of intrauterine contraceptive device Category: Medical Plan: Discussed with the patient the finding on physical exam, IUD string in place, the patient was reassured. Instructions given to patient to call in case of temperature above 100.4, severe cramping/pelvic pain, abnormal discharge or vaginal bleeding o. Otherwise follow-up at her annual exam appointment. All questions answered, the patient verbalized understanding. (2) Post-menopausal bleeding: Comment: 09/09 Proliferative endometrium 10/09 Mirena IUD insertion 01/09 benign endometrium 05/11 inactive endometrium 09/10 malpositioned IUD Mirena IUD removal/reinsertion Code(s): N95.0 - Postmenopausal bleeding Category: Medical Plan: EMB done, see procedure note Orders: Orders AMB Endometrial Biopsy Today N95.0 - Postmenopausal bleeding Coding Level of Care Code Est Pt Level 3 (22042) Procedure Only Diagnoses IUD check up Z30.431 Post-menopausal bleeding N95.0 CPT Codes Endometrial Biopsy - CPT: 18701-Hhucjrnljeg Biopsy ([id number])
[2024-12-30 09:21] VITALS: BMI 27.4
== END 2024-12-30 09:36 | disposition home or self-care (01) ==
LOC: HO.HWS 08:49
PROVIDERS: PCP Family Medicine; Visit Provider Obstetrics & Gynecology
DX: Z30.431 Encounter for routine checking of intrauterine contraceptive device (principal); N95.0 Postmenopausal bleeding
CPT/HCPCS: 58100; 99213

== ENCOUNTER 2025-01-13 13:02 | Outpatient (AMB) | payer OTHER, SELFPAY ==
--- NOTE | 2025-01-13 13:02 | A.OFFVIS_ITS ---
Intake Visit Reasons: EMB results Food Tray Assembler Required: Yes Food Tray Assembler Language: Superintendent Oil Well Services Services: Food Tray Assembler Present (in person) Food Tray Assembler Name: MATTEO Willis Information Interpreted: non-clinical & clinical Allergies indomethacin (From INDOCIN) Allergy (Unknown, Verified 12/30/24 09:22) RASH HPI Comments Details: The patient scheduled a telehealth visit after endometrial biopsy. The patient has no complaints, no vaginal bleeding, no feverishness chills or abdominal pain. The endometrial biopsy pathology report showed the following: Endometrium, biopsy: Fragments of inactive endometrium with pseudo-decidualized stroma consistent with progestin effect; negative for atypia, hyperplasia or malignancy PFSH Medical History Fibula fracture Arthritis Surgical History History of lumpectomy Tubal ligation status Family History Father No problems noted. Mother No problems noted. Social History Housing: House Patient Tobacco Use Status: Never used Tobacco e-Cigarette/Vaping Use: Never Used Second Hand Smoke Exposure: No service: No Current occupational status: unemployed and disabled Current occupation: right handed Current occupational exposures/hazards: No Cognitive needs: No Hearing needs: No Vision needs: Yes Female Reproductive History Menstrual Age of Menarche: 9 Review of Systems Const All systems reviewed & are unremarkable except as noted in HPI and below Reports as per HPI and Reports no additional complaints GI Reports no additional complaints Reports no additional complaints Telehealth Telehealth Telehealth Platform: [facility] Location of provider rendering services: practice address Location of patient: address on file Patient Identification confirmed using: Name, : Yes Telehealth method: voice only Patient verbally consented to treatment: Yes Patient verbally consented to billing insurance company: Yes Patient informed of any privacy concerns related to visit: Yes Minutes spent on Phone/Video with Pt.: 3 Assessment & Plan Assessment & Plan (1) Post-menopausal bleeding: Comment: 09/09 Proliferative endometrium 10/09 Mirena IUD insertion 01/09 benign endometrium 05/11 inactive endometrium 09/10 malpositioned IUD Mirena IUD removal/reinsertion 01/10 inactive endometrium Code(s): N95.0 - Postmenopausal bleeding Category: Medical Plan: Discussed with the patient the results the EMB pathology, the patient was reassured. Instructions given to patient to call in case of vaginal bleeding. All questions answered, the patient verbalized understanding I spent a total of 20 minutes reviewing the chart, talking to the patient via phone and documenting in the medical record. Coding Level of Care Code Tele Est Pt Level 3 (85657) Diagnoses Post-menopausal bleeding N95.0
--- OUTSIDE RECORDS SUMMARY | 2025-01-13 13:39 | XMS_ITS | Clinical Summary ---
Author Organization [facility] ity Address [address] [place] [address] Care Team Providers Care Molder Wax Ball Name Role Phone Unavailable Primary Care Provider [...] 2019 Zoster Vaccines (1 of 2) 2019 COVID-19 Vaccine ( - 2023-2 5 season) [...]
--- OUTSIDE RECORDS SUMMARY | 2025-01-13 13:39 | XMS_ITS | Clinical Summary ---
Author Organization [employer] Address [address] [place] [address] [address] [place] [address] Care Team Providers Care Mobile Ui/Ux Designer Name Role Phone Unavailable Primary Care Provider [...] Not Detected [facility] Comment: Methodology: Children'S Ministry Director-Mediated Amplification This assay detects E6/E7 viral messenger RNA (mRNA) from 14 high-risk HPV types (16,18,31,33,35,39,45,51,52,56,58,59,66,68). The analytical performance characteristics of this assay have been determined by [employer]. The modifications have not been cleared or approved by the FDA. This assay has been validated pursuant to the CLIA regulations and is used for clinical purposes. For additional information, please refer to http://education.The Venue Report/faq/GMW240v9 (This link if provided for information/ educational purposes only.) THIS TEST WAS PERFORMED AT: [facility] [employer] [address] [place] [address] [address],[place] [address] JOSE MEZA MD 08/15/2021 7:30 AM EDT Armando Smallwood MD HISTORICAL/NON ORDERABLE LABS Fi nal Result [facility] [address] * 3D DIGITAL DAINA SCR MAMMO [...] Most Recently Relevant to Health Maintenance Insurance [facility] C3
== END 2025-01-13 13:35 | disposition home or self-care (01) ==
LOC: HO.HWS 13:02
PROVIDERS: PCP Family Medicine; Visit Provider Obstetrics & Gynecology
DX: N95.0 Postmenopausal bleeding (principal)
CPT/HCPCS: 99213

== ENCOUNTER 2025-01-27 08:41 | Outpatient (REF) | payer OTHER, SELFPAY ==
[2025-01-27 23:19] LABS: CT PCR Urine NOT DETECTED (Not Detect.); NG PCR Urine NOT DETECTED (Not Detect.)
== END 2025-01-27 08:42 | disposition home or self-care (01) ==
LOC: HO.LNP 08:41
PROVIDERS: PCP Family Medicine; Visit Provider Obstetrics & Gynecology
DX: R10.2 Pelvic and perineal pain (principal); R31.29 Other microscopic hematuria; Z11.8 Encounter for screening for other infectious and parasitic diseases; Z11.3 Encounter for screening for infections with a predominantly sexual mode of transmission; Z98.51 Tubal ligation status
CPT/HCPCS: 81002; 87086; 87491; 87591; 99212

== ENCOUNTER 2025-01-27 08:41 | Outpatient (AMB) | payer OTHER, SELFPAY ==
--- NOTE | 2025-01-27 08:49 | MHC.OFFVIS ---
Intake Visit Reasons: pelvic pain Recreation Program Coordinator Required: Yes Recreation Program Coordinator Language: Retail Sales Teammate Services: Recreation Program Coordinator Present (in person) Recreation Program Coordinator Name: MATTEO Willis Information Interpreted: non-clinical & clinical Ammonium Nitrate Crystallizer: Ammonium Nitrate Crystallizer Present (MATTEO Willis) Accompanied by: Self / Same As Patient Allergies indomethacin (From INDOCIN) Allergy (Unknown, Verified 01/27/25 08:52) RASH HPI Comments Details: Presenting complaining of left-sided pelvic pain of 2 week duration associated with urinary frequency, no associated nausea or vomiting , no vaginal bleeding or discharge, no constipation or diarrhea The patient has Mirena IUD for proliferative endometrium which was malrotated in 09/10 was replaced then The patient had 4 EMB's last year with inactive endometrium since Mirena IUD insertion Pelvic ultrasound done today showed the following: Uterus: The uterus is anteversion flexion and measures 7 x 4 x 7 cm. Volume: 99 cc. The double wall endometrial thickness is 3 mm. There is an intrauterine contraceptive device in normal position. The cervix is closed with trace of fluid. There are Nabothian cyst in the cervix. There is a 4 cm heterogeneous intramural soft tissue lesion in the left side of the body of the uterus. There is a small, 0.6 cm hypoechoic ovoid shaped lesion in the submucosal left body of the uterus region. Adnexa: The right ovary is not identified. The left ovary is identified with flow on color Doppler interrogation.. No free fluid in the cul-de-sac. Left ovary measures 2 x 1 x 1 cm. Volume: 1 cc. No solid or cystic lesion. [facility] Medical History Fibula fracture Arthritis Surgical History History of lumpectomy Tubal ligation status Family History Father No problems noted. Mother No problems noted. Social History Housing: House Patient Tobacco Use Status: Never used Tobacco e-Cigarette/Vaping Use: Never Used Second Hand Smoke Exposure: No service: No Current occupational status: unemployed and disabled Current occupation: right handed Current occupational exposures/hazards: No Cognitive needs: No Hearing needs: No Vision needs: Yes Female Reproductive History Menstrual Age of Menarche: 9 Review of Systems Const All systems reviewed & are unremarkable except as noted in HPI and below Physical Exam GI Palpation (GI): Soft to palpation, Tenderness to palpation present (GI) (Left lower quadrant tenderness) and no guarding General: Yes no CVA tenderness External Female Exam: normal external appearance and normal appearance of the urethra Speculum Exam - Vagina: normal appearance of the vagina, normal palpation, no lesions and no masses Speculum Exam - Cervix: normal appearance of the cervix, normal palpation, no lesions, no masses, nontender and Other cervical findings present (IUD thread seen in place) Bimanual exam- vagina & uterus: normal bimanual exam, normal palpation, uterine size normal, normal palpation, uterine shape normal, No Cervical tenderness present and non-tender Bimanual Exam- Adnexa, other: normal adnexae Back/Spine/Pelvis Back: no CVA tenderness Results AMB Urinalysis Dipstick UR Leukocytes Trace Last Edit by Francisca Bridges CMA on 01/27/25 09:17 UR Nitrite Negative Last Edit by Francisca Bridges CMA on 01/27/25 09:17 UR Urobilinogen Normal Last Edit by Francisca Bridges CMA on 01/27/25 09:17 UR Protein Trace Last Edit by Francisca Bridges CMA on 01/27/25 09:17 UR Ph 6.5 Last Edit by Francisca Bridges CMA on 01/27/25 09:17 UR Blood Trace Last Edit by Francisca Bridges CMA on 01/27/25 09:17 UR Specific [place] 1.015 Last Edit by Francisca Bridges CMA on 01/27/25 09:17 UR Ketone Trace Last Edit by Francisca Bridges CMA on 01/27/25 09:17 UR Bilirubin Negative Last Edit by Francisca Bridges CMA on 01/27/25 09:17 UR Glucose Negative Last Edit by Francisca Bridges CMA on 01/27/25 09:17 Results Reviewed Results Reviewed: Laboratory Last Values Urine pH (Clinic) 6.5 01/27/25 09:15 Specific [place] (Clinic) 1.015 01/27/25 09:15 Ur Protein (Clinic) Trace 01/27/25 09:15 Ur Ketones (Clinic) Trace 01/27/25 09:15 Urine Blood (Clinic) Trace 01/27/25 09:15 Urine Nitrite Negative 01/27/25 09:15 Urine Bilirubin (Clinic) Negative 01/27/25 09:15 Urobilinogen (Clinic) Normal 01/27/25 09:15 Leukocyte Esterase (Clinic) Trace 01/27/25 09:15 Urine Glucose (Clinic) Negative 01/27/25 09:15 Assessment & Plan Assessment & Plan (1) Pelvic pain: Comment: 2 Myomas Code(s): R10.2 - Pelvic and perineal pain Category: Medical Plan: GC/CT collected, Urine dip showed a microscopic hematuria, will send urine for culture. Discussed with the patient the finding on ultrasound showing a correct IUD position, normal left ovary and 2 myomas previously seen Will send the patient the emergency room to rule out diverticulitis, pyelonephritis or other non field broomer causes as a source of her left-sided pelvic pain. If the workup for pelvic pain is negative recommend PID treatment with [facility] outpatient the regimen ceftriaxone 500 mg IM x1 with doxycycline 100 mg p.o. b.i.d./metronidazole 500 mg p.o. b.i.d. for 14 days and follow-up in the office within 2 weeks Will send the patient to emergency room for further management. Discuss the case with HEATHER Bhagat in the emergency room (2) Microscopic hematuria: Code(s): R31.29 - Other microscopic hematuria Category: Medical Plan: Urine dip showed microscopic hematuria, urine culture sent. Will repeat urine dip in 2 weeks. Discussed with the patient the possible causes of microscopic hematuria including but not limited to: interstitial cystitis, polyps, stones, masses, urethral inflammatory processes and others. If Urine Culture is negative and repeat urine dip in 2 weeks shows persistent microscopic hematuria, will proceed with CT abdomen/pelvis and urology referral. Instructions given the patient to schedule a 2 week urine dip follow-up appointment. All questions answered and the patient verbalized understanding. Orders: Orders US pelvic and transvaginal Today R10.2 - Pelvic and perineal pain Urine Culture Today R10.2 - Pelvic and perineal pain AMB Urinalysis Dipstick Today R10.2 - Pelvic and perineal pain Coding Level of Care Code Est Pt Level 3 (22429) Diagnoses Pelvic pain R10.2 Microscopic hematuria R31.29
--- OUTSIDE RECORDS SUMMARY | 2025-01-27 09:44 | XMS_ITS | Clinical Summary ---
Author Organization [employer] Address [address] [place] [address] [address] [place] [address] Care Team Providers Care Rod Finisher Name Role Phone Unavailable Primary Care Provider [...] Screening 05/15/2023 05/15/2022 COVID-19 Vaccine (3 - 2024-2 6 season) 2025 01/17/2021, 12/27/2020 Influenza Vaccine (#1) 2025 4, [...] Not Detected [facility] Comment: Methodology: Signal Circuit Designer-Mediated Amplification This assay detects E6/E7 viral messenger RNA (mRNA) from 14 high-risk HPV types (16,18,31,33,35,39,45,51,52,56,58,59,66,68). The analytical performance characteristics of this assay have been determined by [employer]. The modifications have not been cleared or approved by the FDA. This assay has been validated pursuant to the CLIA regulations and is used for clinical purposes. For additional information, please refer to http://education.PROSimity/faq/SDL584g0 (This link if provided for information/ educational purposes only.) THIS TEST WAS PERFORMED AT: [facility] [address] [place] [address] [address] [address] JOSE MEZA MD 08/15/2021 7:30 AM EDT Armando Smallwood MD HISTORICAL/NON ORDERABLE LABS Fi nal Result [facility] [address] * 3D DIGITAL DAINA SCR MAMMO [...] Most Recently Relevant to Health Maintenance Insurance [facility] C3
--- OUTSIDE RECORDS SUMMARY | 2025-01-27 09:44 | XMS_ITS | Clinical Summary ---
Author Organization [facility] ity Address [address] [place] [address] Care Team Providers Care Blow Mold Operator Name Role Phone Unavailable Primary Care [...] 2019 Zoster Vaccines (1 of 2) 2019 Depression Screening 05/19/2024 COVID-19 Vaccine ( - 2023-2 5 season) 2025 Influenza Vaccine (#1) 2025 HIB Vaccines Aged [...]
== END 2025-01-27 10:04 | disposition home or self-care (01) ==
LOC: HO.HWS 08:41
PROVIDERS: PCP Family Medicine; Visit Provider Obstetrics & Gynecology
DX: R10.2 Pelvic and perineal pain (principal); R31.29 Other microscopic hematuria
CPT/HCPCS: 99213

== ENCOUNTER 2025-01-27 09:43 | Outpatient (REF) | payer OTHER, SELFPAY ==
--- NOTE | ~2025-01-27 | US_ITS ---
EXAMINATION: US PELVIS CLINICAL INFORMATION: Pelvic and perineal pain. Prior pelvic ultrasound demonstrated uterine fibroids. COMPARISON: August 24, 2024 TECHNIQUE: Ultrasound of the pelvis is performed using both transabdominal and transvaginal transducers along with Doppler. Transvaginal imaging is performed due to inadequate visualization transabdominally. FINDINGS: Uterus: The uterus is anteversion flexion and measures 7 x 4 x 7 cm. Volume: 99 cc. The double wall endometrial thickness is 3 mm. There is an intrauterine contraceptive device in normal position. The cervix is closed with trace of fluid. There are Nabothian cyst in the cervix. There is a 4 cm heterogeneous intramural soft tissue lesion in the left side of the body of the uterus. There is a small, 0.6 cm hypoechoic ovoid shaped lesion in the submucosal left body of the uterus region. Adnexa: The right ovary is not identified. The left ovary is identified with flow on color Doppler interrogation.. No free fluid in the cul-de-sac. Left ovary measures 2 x 1 x 1 cm. Volume: 1 cc. No solid or cystic lesion. US/US pelvic and transvaginal IMPRESSION: Intramural and submucosal uterine fibroids. Status post intrauterine contraceptive device placed in satisfactory position. Left ovary is normal.. Right ovary is not identified. Electronically signed by: Ankit Liu MD 01/27/2025 10:47 AM EDT
== END 2025-01-27 09:44 | disposition home or self-care (01) ==
LOC: HO.US 09:43
PROVIDERS: PCP Family Medicine; Visit Provider Obstetrics & Gynecology
DX: R10.2 Pelvic and perineal pain (principal)
CPT/HCPCS: 76830; 76856

== ENCOUNTER → 2025-01-27 09:45 | Outpatient (BNV) | payer OTHER, SELFPAY | PROVIDERS: PCP Family Medicine; Visit Provider Radiology Diagnostic Radiology | DX: D25.0 Submucous leiomyoma of uterus (principal) | CPT/HCPCS: 76830; 76856 ==

== ENCOUNTER 2025-01-27 11:16 | Emergency (ER) | payer OTHER, SELFPAY ==
--- NOTE | 2025-01-27 11:32 | ED_ITS ---
HPI - Abdominal Pain General Chief Complaint: Abdominal Pain Stated Complaint: severe LLQ pain Related Data Home Medications ?Medication ?Instructions ?Recorded ?Confirmed levonorgestrel (Mirena) intrauterine 12/30/24 Previous Rx's ?Medication ?Instructions ?Recorded acetaminophen 325 mg tablet 650 mg (2 x 325 mg) PO Q6H PRN 03/14/20 (Tylenol) pain #14 tabs ferrous sulfate 325 mg (65 mg 325 mg PO DAILY 90 days #90 tabs 09/06/21 iron) tablet,delayed release gabapentin 100 mg capsule 200 mg (2 x 100 mg) PO BID 9 0 days 03/11/24 #360 caps atorvastatin 10 mg tablet (Lipitor) 10 mg PO BEDTIME 9 0 days #90 tabs 11/08/24 calcium polycarbophil 625 mg 625 mg PO DAILY 30 days # 30 tabs 01/03/25 tablet (FiberCon) Allergies Allergy/AdvReac Type Severity Reaction Status Date / Time indomethacin (From INDOCIN) Allergy Unknown RASH Verified 01/27/25 11:35 [facility] Past Medical History Medical History Fibula fracture Arthritis Surgical History History of lumpectomy Tubal ligation status Family History Family History Father No problems noted. Mother No problems noted. Social History Social History Housing: House Patient Tobacco Use Status: Never used Tobacco e-Cigarette/Vaping Use: Never Used Second Hand Smoke Exposure: No Advance Directives: No Advance Directives Information Provided: No service: No Current occupational status: unemployed and disabled Current occupation: right handed Current occupational exposures/hazards: No Cognitive needs: No Hearing needs: No Vision needs: Yes Physical Exam ED Vital Signs: BMI result Body Mass Index 28.3 Course Course Course Narrative: This is a Rapid Medical Examination (RME) performed by Lyndon Mallory PA-C in triage. Full HPI, ROS, assessment and treatment plan per primary provider in the Main ED. Hx: 54 yo F here for eval of LLQ pain x2 weeks, worsening. has been evaluated by Dr. Smallwood w/ normal supervisor blooming mill exam and normal pelvic US performed today. he advised she come to the ED to r/o acute abdomen with recommendation to treated for PID (antibiotics) if work up is negative. pt reports increased urinary freq. Plan: labs, UA - will defer further imaging to primary provider. Reevaluation(s) Reevaluation #1: Patient left the emergency department before myself or any of the other clinicians could review or explain physical exam findings, test results, need or lack there of for additional testing, treatment options, or a treatment plan. Discharge Plan Discharge Clinical Impression: Abdominal pain Patient Disposition: Left W/O Completing Treatment Prescriptions: No Action ferrous sulfate 325 mg (65 mg iron) tablet,delayed release (DR/EC) 325 mg PO DAILY 90 Days Qty: 90 3RF calcium polycarbophil [FiberCon] 625 mg tablet 625 mg PO DAILY 30 Days Qty: 30 2RF acetaminophen [Tylenol] 325 mg tablet 650 mg PO Q6H PRN (Reason: pain) Qty: 14 0RF gabapentin 100 mg capsule 200 mg PO BID 90 Days Qty: 360 0RF atorvastatin [Lipitor] 10 mg tablet 10 mg PO BEDTIME 90 Days Qty: 90 3RF Mirena 21 mcg/24hr (up to 8 yrs) 52 mg intrauterine device intrauterine Discharge Date/Time: 01/27/25 20:14
[2025-01-27 11:35] VITALS: BP 143/67; PULSE 71; RESP 16; TEMP 36.8; O2SAT 94; BMI 28.3
--- OUTSIDE RECORDS SUMMARY | 2025-01-27 19:09 | XMS_ITS | Clinical Summary ---
Author Organization [employer] Address [address] [place] [address] [address] [place] [address] Care Team Providers Care Willower Name Role Phone Unavailable Primary Care Provider [...] Not Detected [facility] Comment: Methodology: Triple Drum Operator-Mediated Amplification This assay detects E6/E7 viral messenger RNA (mRNA) from 14 high-risk HPV types (16,18,31,33,35,39,45,51,52,56,58,59,66,68). The analytical performance characteristics of this assay have been determined by [employer]. The modifications have not been cleared or approved by the FDA. This assay has been validated pursuant to the CLIA regulations and is used for clinical purposes. For additional information, please refer to http://education.Vignani/faq/DIT405z4 (This link if provided for information/ educational purposes only.) THIS TEST WAS PERFORMED AT: [employer] [address] [place] [address] [address] [address] JOSE MEZA MD 08/15/2021 7:30 AM EDT Armando Smallwood MD HISTORICAL/NON ORDERABLE LABS Fi nal Result [facility] [address] * 3D DIGITAL DAINA SCR MAMMO [...] Most Recently Relevant to Health Maintenance Insurance [facility] C3
== END 2025-01-27 20:14 | disposition left against medical advice (07) ==
PROVIDERS: Emergency Provider Emergency Medicine
DX: R10.32 Left lower quadrant pain (principal); Z79.899 Other long term (current) drug therapy
CPT/HCPCS: 99281

== ENCOUNTER 2025-02-11 11:00 | Outpatient (AMB) | payer OTHER, SELFPAY ==
--- NOTE | 2025-02-11 11:03 | A.OFFVIS_ITS ---
Vital Signs 02/11/25 11:04 Height 5 ft 2 in Weight 148 lb BMI 27.1 BP 108/67 Blood Pressure Location Lt brachial Position Sitting Pulse 70 Pulse Oximetry (%) 96 Oxygen Delivery Method Room Air Intake Visit Reasons: Colonoscopy Screening Intake Note: Patient new consult for 1st pre Colonoscopy screening. Patient cc: N/V, LLQ pain on and off/abdominal pain, constipation with some diarrhea on and off, dizziness with appetite changes. Wind Field Manager Required: No Accompanied by: Daughter Allergies indomethacin (From INDOCIN) Allergy (Unknown, Verified 01/27/25 11:35) RASH Medication List - Last Reconciled 02/11/25 by Radha Bonilla CNP acetaminophen (Tylenol) 650 mg (2 x 325 mg) PO Q6H PRN atorvastatin (Lipitor) 10 mg PO BEDTIME 90 days calcium polycarbophil (FiberCon) 625 mg PO DAILY 30 days ferrous sulfate 325 mg PO DAILY 90 days gabapentin 200 mg (2 x 100 mg) PO BID 90 days levonorgestrel (Mirena) intrauterine HPI HPI Colonoscopy Screening: Details: Patient is a 54-year-old female with PMH of hyperlipidemia. Referred by PCP for pre colonoscopy screening. Patient is accompanied by daughter who is translating during our visit. Patient presents with approximately 2?3 months of new-onset constipation, described as passing very small amounts of stool, sometimes up to twice daily. Stool consistency and ease of passage fluctuate, with intermittent episodes of hard, [id number] stools and periods of relative comfort. Reports persistent sensation of incomplete evacuation and a need to frequently attempt defecation, sometimes associated with intermittent abdominal and anal discomfort; denies overt abdominal pain localization. Notes occasional nausea, not clearly linked to food intake, and variable poor appetite with early satiety since symptom onset. No prior similar GI symptoms. There is questionable weight loss, but historical weights are inconsistent. Hydration has been increased without significant symptomatic relief. Diet reportedly includes fruits, vegetables, beans, and nuts. Recent addition of atorvastatin for hyperlipidemia. Also has a history of unsteady gait, tremors, and falls, pending neurology evaluation following abnormal MRI. Recent transvaginal US for abdominal/pelvic pain demonstrated uterine fibroids and IUD in situ. Patient denies: fever/chills, vomiting, , pyrosis, regurgitation,dysphasia, unintentional wt loss or melena/hematochezia. Social hx: -denies ETOH use -denies recreational drug use -non-smoker - family hx as below -denies personal hx of CA -denies significant cardiopulmonary history -tolerated anesthesia in the past without difficulty. [facility] Medical History Fibula fracture Arthritis Surgical History History of lumpectomy Tubal ligation status Family History Father No problems noted. Mother No problems noted. Social History Housing: House Patient Tobacco Use Status: Never used Tobacco e-Cigarette/Vaping Use: Never Used Second Hand Smoke Exposure: No service: No Current occupational status: unemployed and disabled Current occupation: right handed Current occupational exposures/hazards: No Cognitive needs: No Hearing needs: No Vision needs: Yes Female Reproductive History Menstrual Age of Menarche: 9 Review of Systems Const Reports as per HPI ENT Reports as per HPI Card Reports as per HPI Resp Reports as per HPI GI Reports as per HPI Reports as per HPI Physical Exam Vital Signs: Last Vital Signs Pulse 70 02/11/25 11:04 BP 108/67 02/11/25 11:04 Pulse Ox 96 02/11/25 11:04 Oxygen Delivery Method Room Air 02/11/25 11:04 BMI result Body Mass Index 27.1 Const General: healthy appearing, no acute distress and well developed Nutritional Appearance: average body habitus Orientation/consciousness: patient oriented x3 HEENT Head: Yes normal to inspection, Yes normocephalic and Yes atraumatic Face and sinus: Yes normal facial exam Eyes General: appearance normal, both eyes and all related structures Neck Neck: Yes normal visual inspection Resp Effort & Inspection: normal respiratory effort, able to speak in complete sentences, no tracheal deviation and symmetric chest movement Cardio Jugular venous distension: no JVD Bruits: no abdominal aortic bruits GI Inspection: Yes normal to inspection and No distended Palpation (GI): No Abdominal aortic bruit present, Soft to palpation, not firm, nontender and No hepatosplenomegaly present Auscultation: normal bowel sounds Rectal Exam - Female: visual inspection normal, decreased sphincter tone, No External hemorrhoid(s) present, No Internal hemorrhoid(s) present, No Rectal prolapse, No fecal impaction, hemorrhoids (skin tag only ), No Laceration(s) present (GI) and No Excoriation present (GI) Neuro General: patient oriented x3 Gait exam (Neuro): Normal gait present Psych Appearance: grossly normal Mental Status: mental status grossly normal Speech and movement: Normal speech and movement present Affect: normal affect Attitude: cooperative Thought process: Normal thought process present Thought content: Normal thought content present Insight: Good insight present (Psych) Judgement: Good judgement present (Psych) Results Reviewed Results Reviewed: Date of Service: 01/27/25 Procedure(s): US pelvic and transvaginal Accession Number(s): [id number] cc: Mil Haji MD; Armando Smallwood MD~ Reason for Exam: R10.2 - Pelvic and perineal pain EXAMINATION: US PELVIS CLINICAL INFORMATION: Pelvic and perineal pain. Prior pelvic ultrasound demonstrated uterine fibroids. COMPARISON: August 24, 2024 TECHNIQUE: Ultrasound of the pelvis is performed using both transabdominal and transvaginal transducers along with Doppler. Transvaginal imaging is performed due to inadequate visualization transabdominally. FINDINGS: Uterus: The uterus is anteversion flexion and measures 7 x 4 x 7 cm. Volume: 99 cc. The double wall endometrial thickness is 3 mm. There is an intrauterine contraceptive device in normal position. The cervix is closed with trace of fluid. There are Nabothian cyst in the cervix. There is a 4 cm heterogeneous intramural soft tissue lesion in the left side of the body of the uterus. There is a small, 0.6 cm hypoechoic ovoid shaped lesion in the submucosal left body of the uterus region. Adnexa: The right ovary is not identified. The left ovary is identified with flow on color Doppler interrogation.. No free fluid in the cul-de-sac. Left ovary measures 2 x 1 x 1 cm. Volume: 1 cc. No solid or cystic lesion. US/US pelvic and transvaginal IMPRESSION: Intramural and submucosal uterine fibroids. Status post intrauterine contraceptive device placed in satisfactory position. Left ovary is normal.. Right ovary is not identified Assessment & Plan Assessment & Plan (1) Constipation: Code(s): K59.00 - Constipation, unspecified Category: Medical Qualifiers: Constipation type: unspecified constipation type Qualified Code(s): K59.00 - Constipation, unspecified Plan: New decreased stool frequency/volume, variable consistency, sensation of incomplete evacuation, intermittent discomfort, and physical findings (decreased rectal tone) support diagnosis. Likely Functional outlet obstruction (rectal tone noted decreased)/IBS. Cannot exclude colonic neoplasm, given age and new symptoms (colonoscopy pending) Additional Testing: - Continue with ordered colonoscopy - H. pylori breath test in office today - Home monitoring of weight to confirm possible weight loss - Consider anorectal function studies if symptoms persist after constipation improved Medication Management: - Initiate MiraLAX (polyethylene glycol) daily - Initiate stool softener/laxative combination, 2 tablets at bedtime - Continue fiber supplement as tolerated Lifestyle Recommendations: - Maintain and possibly increase dietary fiber intake - Ensure ongoing adequate hydration - Encourage regular physical activity as tolerated - Monitor for development of alarm symptoms (blood in stools, worsening pain, intractable vomiting, inability to pass gas) Follow-Up: - GI follow-up in 8 weeks or sooner if symptoms worsen or alarm signs develop (2) Belching: Code(s): R14.2 - Eructation Category: Medical Plan: Intermittent nausea, early satiety, increased gas/burping, and recent poor appetite without other clear etiology Additional Testing: - H. pylori breath test in office today Medication Management: - Hold empiric therapy until H. pylori results available Lifestyle Recommendations: - Maintain usual dietary practices, avoid trigger foods if identified Follow-Up: - Review breath test results at next follow-up or sooner if positive (3) Screening for colon cancer: Code(s): Z12.11 - Encounter for screening for malignant neoplasm of colon Category: Medical Plan: Due for index screening colonoscopy. Medications: -prescriptions for laxative tablets and PEG sent to pharmacy. We will review prep instructions in detail follow up Plan Follow-up 8 weeks or sooner as needed Time: I spent a total of 50 minutes on the date of encounter which includes: Preparing to see the patient (reviewed previous documentation, test results and medical history) Performing a medically appropriate exam and/or evaluation Ordering medications, tests, and procedures Documenting clinical information in the health record Orders: Orders H Pylori Breath Test Today K59.00 - Constipation, unspecified, R14.2 - Eructation Referrals GI Procedure Notification Z12.11 - Encounter for screening for malignant neoplasm of colon Medications: New peg 3350-electrolytes 236-22.74-6.74 -5.86 gram until fecal effluent is clear 240 mL PO Q10M 4,000 mL 0RF polyethylene glycol 3350 (Miralax) Take 17G (one cap full) daily with 8oz of water 17 grams PO DAILY 510 grams 2RF constipation 30 days sennosides-docusate sodium 8.6-50 mg (Senna Plus) Take two tablets at bedtime 2 tab-caps (2 x 8.6-50 mg) PO BEDTIME 180 caps 1RF bisacodyl Take per colonoscopy instructions 5 mg PO ONCE 4 tabs 0RF simethicone (Gas Relief (simethicone)) per colonoscopy prep instructions 125 mg PO ONCE 4 caps 0RF abdominal distention Coding Level of Care Code New Pt New Pt Level 4 (86332) Patient Type New Diagnoses Constipation, unspecified constipation type K59.00 Constipation type: unspecified constipation type Belching R14.2 Screening for colon cancer Z12.11
[2025-02-11 11:04] VITALS: BP 108/67; PULSE 70; O2SAT 96; BMI 27.1
--- OUTSIDE RECORDS SUMMARY | 2025-02-11 12:45 | XMS_ITS | Clinical Summary ---
Author Organization [facility] Address [address] [place] [address] [address] [place] [address] Care Team Providers Care Chemical Equipment Repairer Name Role Phone Unavailable Primary Care [...] Not Detected [facility] Comment: Methodology: Bank Worker-Mediated Amplification This assay detects E6/E7 viral messenger RNA (mRNA) from 14 high-risk HPV types (16,18,31,33,35,39,45,51,52,56,58,59,66,68). The analytical performance characteristics of this assay have been determined by [employer]. The modifications have not been cleared or approved by the FDA. This assay has been validated pursuant to the CLIA regulations and is used for clinical purposes. For additional information, please refer to http://education.[employer]/faq/CYK040d1 (This link if provided for information/ educational purposes only.) THIS TEST WAS PERFORMED AT: [facility] [address] [place] [address] [address],[place] [address] JOSE MEZA MD 08/15/2021 7:30 AM EDT Armando Smallwood MD HISTORICAL/NON ORDERABLE LABS Fi nal Result [facility] [address] * 3D DIGITAL DAINA SCR MAMMO [...] Most Recently Relevant to Health Maintenance Insurance [facility] C[facility]
--- OUTSIDE RECORDS SUMMARY | 2025-02-11 12:45 | XMS_ITS | Clinical Summary ---
Author Organization [facility] ity Address [address] [place] [address] Care Team Providers Care Pest Control Chemical Technician Name Role Phone Unavailable Primary Care Provider [...]
== END 2025-02-11 12:54 | disposition home or self-care (01) ==
LOC: HO.HGI 11:01
PROVIDERS: PCP Family Medicine; Visit Provider Nurse Practitioner Family
DX: Z01.818 Encounter for other preprocedural examination (principal); Z12.11 Encounter for screening for malignant neoplasm of colon; K59.00 Constipation, unspecified; R14.2 Eructation
CPT/HCPCS: 99204

== ENCOUNTER 2025-02-11 11:00 | Outpatient (REF) | payer OTHER, SELFPAY | END 2025-02-11 11:01 | disposition home or self-care (01) | LOC: HO.LNP 11:00 | PROVIDERS: PCP Family Medicine; Visit Provider Nurse Practitioner Family | DX: Z12.11 Encounter for screening for malignant neoplasm of colon (principal); R14.2 Eructation; K59.00 Constipation, unspecified; E78.00 Pure hypercholesterolemia, unspecified; R53.1 Weakness; R26.81 Unsteadiness on feet; R93.89 Abnormal findings on diagnostic imaging of other specified body structures; R25.1 Tremor, unspecified; Z79.899 Other long term (current) drug therapy | CPT/HCPCS: 83013; 99202; 99212 ==

== ENCOUNTER 2025-02-11 13:31 | Outpatient (AMB) | payer OTHER, SELFPAY ==
--- NOTE | 2025-02-11 13:36 | MHC.PC.OV ---
Vital Signs 02/11/25 13:44 Height 5 ft 2 in Weight 152 lb 6 oz BMI 27.9 BP 112/70 Blood Pressure Location Rt brachial Position Sitting Respiration 12 Pulse 82 Pulse Source Pulse Oximeter Temp 98.2 F Temp Source Oral Pulse Oximetry (%) 98 Oxygen Delivery Method Room Air Intake Visit Reasons: f/u hypercholesterolemia Intake Note: Follow up. Stool softners and gas relief was prescribed today, hasn't started yet. Alumina Plant Supervisor Required: No Alumina Plant Supervisor Name: iterpreter declined Accompanied by: Daughter Allergies indomethacin (From INDOCIN) Allergy (Unknown, Verified 02/11/25 13:42) RASH Medication List - Last Reconciled 02/11/25 by Mil Haji MD acetaminophen (Tylenol) 650 mg (2 x 325 mg) PO Q6H PRN atorvastatin (Lipitor) 10 mg PO BEDTIME 90 days bisacodyl 5 mg PO ONCE calcium polycarbophil (FiberCon) 625 mg PO DAILY 30 days ferrous sulfate 325 mg PO DAILY 90 days gabapentin 200 mg (2 x 100 mg) PO BID 90 days levonorgestrel (Mirena) intrauterine peg 3350-electrolytes 236-22.74-6.74 -5.86 gram 240 mL PO Q10M polyethylene glycol 3350 (Miralax) 17 grams PO DAILY 30 days sennosides-docusate sodium 8.6-50 mg (Senna Plus) 2 tab-caps (2 x 8.6-50 mg) PO BEDTIME simethicone (Gas Relief (simethicone)) 125 mg PO ONCE Tobacco use date assessed: 02/11/25 Dental Screening Dental Screen Date: 09/30/24 HPI f/u hypercholesterolemia HPI Details 54 y/o female presents to f/u chronic conditions. Recent ED visit for abd. pain. Had left AMA. Did see GI today for constipation, belching. Was prescribed MiraLAX, simethicone - they plan to continue ordered colonoscopy. Ongoing weakness/unsteady gait. Has an upcoming appt. with neurology. HPI Comments History of Present Illness Details Documentation assistance for Mil Haji MD, was provided by James Way,? Mud Mill Tender on 02/11/2025 at 2:10 PM EST. I, Dr. Haji, have read, observed, and verified documentation. ?? [facility] Medical History (Updated 02/11/25 @ 12:13 by Radha Bonilla CNP) Belching Fibula fracture Arthritis Surgical History History of lumpectomy Tubal ligation status Family History Father No problems noted. Mother No problems noted. Social History Housing: House Patient Tobacco Use Status: Never used Tobacco e-Cigarette/Vaping Use: Never Used Second Hand Smoke Exposure: No service: No Current occupational status: unemployed and disabled Current occupation: right handed Current occupational exposures/hazards: No Cognitive needs: No Hearing needs: No Vision needs: Yes Female Reproductive History Menstrual Age of Menarche: 9 Questionnaire Thrive Questionnaire Date Thrive assessed: 09/30/24 I am a: Patient What is your living situation today?: I have a steady place to live Within the past 12 months, did the food you bought not last and you didn't have the money to get more?: I choose not to answer this question Within the past 12 months, did you worry whether your food would run out before you got money to buy more?: I choose not to answer this question Do you have trouble paying for medicines?: I choose not to answer this question Do you have trouble getting transportation to medical appointments?: I choose not to answer this question Do you have trouble paying your heating and electricity bill?: I choose not to answer this question Do you have trouble taking care of your child, family member or friend?: I choose not to answer this question Do you have trouble with day-to-day activities such as bathing, preparing meals, shopping, managing finances, etc.?: I choose not to answer this question Are you currently unemployed and looking for a job?: I choose not to answer this question Are you interested in more education?: I choose not to answer this question Please select the resources that you would like help with: Daily support Currently or been in a relationship where the following occur: No concerns reported THRIVE Score: 0 AUDIT C Alcohol Use Questionnaire (AUDIT-C) 1. How often do you have a drink containing alcohol?: Never 3. How often do you have six or more drinks on one occasion?: Never Total Score: 0 ANIKA-7 AMB Questionnaire ANIKA-7 Date ANIKA - 7 assessed: 09/30/24 Source: Developed by Drs. Rohit Leyva, Silvia Raman, Felix Kraus and colleagues, with an educational satinder from [employer]. Review of Systems Const Denies chills, Denies fatigue, Denies fever(s), Denies headache(s) and Denies weakness ENT Denies dizziness and Denies headache(s) Card Denies chest pain, Denies lightheadedness, Denies dyspnea and Denies other (Palpitations) Resp Denies cough, Denies dyspnea, Denies wheezing and Denies other ( shortness of breath) Musc Denies numbness and Denies tingling Neuro Denies dizziness, Denies headache(s), Denies numbness, Denies tingling, Denies paresthesias and Denies weakness Psych Denies anxiety and Denies depression Endo Denies fatigue Aller/Immun Denies wheezing Physical exam (Primary Care) Vital Signs: Last Vital Signs Temp 98.2 F 02/11/25 13:44 Pulse 82 02/11/25 13:44 Resp 12 02/11/25 13:44 BP 112/70 02/11/25 13:44 Pulse Ox 98 02/11/25 13:44 Oxygen Delivery Method Room Air 02/11/25 13:44 BMI result Body Mass Index 27.9 Tobacco/Smoking Status: Tobacco use Status Tobacco use date assessed 02/11/25 02/11/25 13:47 Patient Tobacco Use Status Never used Tobacco 02/11/25 13:36 e-Cigarette/Vaping Use Never Used 02/11/25 13:36 Thrive Assessment: Date of Thrive Assessment Date Thrive assessed 09/30/24 02/11/25 13:36 Currently or been in a relationship where the following occur: No concerns reported Const General: no acute distress and well developed Nutritional Appearance: well nourished Orientation/consciousness: patient oriented x3 HENMT Head: Yes normocephalic and Yes atraumatic Eyes General: appearance normal, both eyes and all related structures Pupils: Equal, round and reactive pupils present EOM: EOMs intact bilaterally Resp Effort & Inspection: normal respiratory effort Auscultation: clear to auscultation bilaterally Cardio Rate: regular rate Rhythm: regular rhythm Heart sounds: S1 normal heart sound present, S2 normal heart sound present, no gallops, no murmurs and no rubs Neuro General: patient oriented x3 and gait normal Cranial nerves: Yes Equal, round and reactive pupils present Psych Affect: normal affect Coding Level of Care Code Est Pt Level 4 (02235) Diagnoses Hypercholesterolemia E78.00 Belching R14.2 Constipation, unspecified constipation type K59.00 Constipation type: unspecified constipation type Left-sided weakness R53.1 Unsteady gait R26.81 Abnormal MRI R93.89 Tremor R25.1 Assessment & Plan Assessment & Plan (1) Hypercholesterolemia: Code(s): E78.00 - Pure hypercholesterolemia, unspecified Category: Medical (2) Belching: Code(s): R14.2 - Eructation Category: Medical (3) Constipation: Code(s): K59.00 - Constipation, unspecified Category: Medical Qualifiers: Constipation type: unspecified constipation type Qualified Code(s): K59.00 - Constipation, unspecified (4) Left-sided weakness: Code(s): R53.1 - Weakness Category: Medical (5) Unsteady gait: Code(s): R26.81 - Unsteadiness on feet Category: Medical (6) Abnormal MRI: Code(s): R93.89 - Abnormal findings on diagnostic imaging of other specified body structures Category: Medical (7) Left-sided weakness: Code(s): R53.1 - Weakness Category: Medical (8) Tremor: Code(s): R25.1 - Tremor, unspecified Category: Medical Plan Some abdominal pain persists and patient was recently seen by Gastroenterology Starting MiraLax and simethicone. I reiterated that she needs to make sure she is hydrating well. Also followed by hospital education coordinator as she has some fibroids which he also contribute to abdominal discomfort. Follow-up with hospital education coordinator as recommended Lipids were elevated and she has started atorvastatin from last visit. She is tolerating this well Will check lipids Ongoing weakness and unsteady gait. She has an upcoming appointment with Neurology I review the MRI results with patient and her daughter again today. Orders: Orders Lipid Panel Today Z00.00 - Encounter for general adult medical examination without abnormal findings Comprehensive [place]. Panel Fast Today Z00.00 - Encounter for general adult medical examination without abnormal findings
[2025-02-11 13:44] VITALS: BP 112/70; PULSE 82; RESP 12; TEMP 36.8; O2SAT 98; BMI 27.9
== END 2025-02-11 14:11 | disposition home or self-care (01) ==
LOC: HO.HMCFM 13:32
PROVIDERS: PCP Family Medicine; Visit Provider Family Medicine
DX: E78.00 Pure hypercholesterolemia, unspecified (principal); R14.2 Eructation; K59.00 Constipation, unspecified; R53.1 Weakness; R26.81 Unsteadiness on feet; R93.89 Abnormal findings on diagnostic imaging of other specified body structures; R25.1 Tremor, unspecified

== ENCOUNTER 2025-02-14 09:16 | Outpatient (AMB) | payer OTHER, SELFPAY ==
--- NOTE | 2025-02-14 09:22 | MHC.OFFVIS ---
Vital Signs 02/14/25 09:23 Height 5 ft 2 in Weight 151 lb BMI 27.6 BP 132/80 Blood Pressure Location Rt brachial Position Sitting Pulse 67 Pulse Source Pulse Oximeter Pulse Oximetry (%) 98 Oxygen Delivery Method Room Air Intake Visit Reasons: 5/15LVM+Let INP-Weakness/unsteady feet Intake Note: Weakness and unsteady feet Airline Mechanic Required: Yes Airline Mechanic Name: iPad interp ID: [id number] Accompanied by: Self / Same As Patient Allergies indomethacin (From INDOCIN) Allergy (Unknown, Verified 02/14/25 09:29) RASH HPI Comments Details: 54y/o female comes for evaluation of left sided weakness, gait difficulty ,abnormal MRI. 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 1 year ago she started having frequent episodes of left temporal pain with retrorobital pain - can last hrs. she has 3-4 episodes per week. she has nausea but denies photophobia or phonophobia . she also has neck pain.she takes tylenol ibuprofen as needed. she denies left sided weakness.But when her PCP was evaluating he noticed weakness on left side which led to this referral. she c/o numbness and pain in her hands.she has arjun hip pain which is affecting her walking.she had a fall down the stairs - 2 years ago when she lost balance.she luis spoor balance as per her daughter.she also reports dizziness.- room spinning she has chronic sleep issues , snoring and hypersomnia. FOR[facility]LY [facility] Medical History (Updated 02/14/25 @ 10:09 by Dee Dove MD) Headache Neck pain Hypersomnia Snoring Belching Fibula fracture Arthritis Surgical History History of lumpectomy Tubal ligation status Family History Father No problems noted. Mother No problems noted. Social History Housing: House Patient Tobacco Use Status: Never used Tobacco e-Cigarette/Vaping Use: Never Used Second Hand Smoke Exposure: No service: No Current occupational status: unemployed and disabled Current occupation: right handed Current occupational exposures/hazards: No Cognitive needs: No Hearing needs: No Vision needs: Yes Female Reproductive History Menstrual Age of Menarche: 9 Physical Exam Vital Signs: Last Vital Signs Pulse 67 02/14/25 09:23 BP 132/80 02/14/25 09:23 Pulse Ox 98 02/14/25 09:23 Oxygen Delivery Method Room Air 02/14/25 09:23 BMI result Body Mass Index 27.6 Const General: cooperative, comfortable and no acute distress Nutritional Appearance: average body habitus Orientation/consciousness: patient oriented x3 Eyes Pupils: Equal, round and reactive pupils present Neuro General: patient oriented x3, tone normal, moves all extremities and no focal motor deficits Cranial nerves: Yes Facial sensation intact/muscles of mastication intact, Yes Equal, round and reactive pupils present, Yes Bilaterally intact EOM present, Yes Nystagmus not present, Yes Normal facial strength present, Yes Midline tongue present, Yes Symmetric palate elevation present and Yes Ability to bilaterally elevate shoulders present Cognition (Neuro): normal cognition Gait exam (Neuro): Antalgic gait present Motor exam (neuro): 5/5 motor strength present throughout and Normal motor muscle tone present throughout Deep tendon reflexes (DTR's): Right triceps reflex intensity grade: 2+, Left triceps reflex intensity grade: 2+, Rt Biceps (C5, C6): 2+, Left biceps reflex intensity grade: 2+, Right brachioradialis reflex intensity grade: 2+, Left brachioradialis reflex intensity grade: 2+, Right patellar reflex intensity grade: 2+, Left patellar reflex intensity grade: 2+ and Right ankle reflex intensity grade: 2+ Results Reviewed Results Reviewed: MRI brain 04/2024 No acute intracranial abnormalities. 2. Minimal nonspecific white matter changes. 3. Mild cerebellar tonsillar ectopia. Assessment & Plan Assessment & Plan (1) Neck pain: Comment: with numbness intremittently arjun hands Code(s): M54.2 - Cervicalgia Category: Medical (2) Headache: Comment: chronic left temporal - has tight TMJ Code(s): R51.9 - Headache, unspecified Category: Medical (3) Snoring: Code(s): R06.83 - Snoring Category: Medical (4) Hypersomnia: Code(s): G47.10 - Hypersomnia, unspecified Category: Medical Plan I will evaluate her with C spine X ray PT neck for myofascial release Trial baclofen 10 mg qhs Home sleep test to r/o sleep apnea reviewed MRI- shows low lying tonsils - discussed with daughter Orders: Orders RT home sleep study Today G47.10 - Hypersomnia, unspecified, R06.83 - Snoring XR cervical spine 3V Today M54.2 - Cervicalgia PT Evaluation and Treatment Today M54.2 - Cervicalgia Medications: New baclofen 10 mg PO BEDTIME 30 tabs 2RF Coding Level of Care Code New Pt Level 4 (67034) Complex EM visit Add On G2211 Diagnoses Neck pain M54.2 Headache R51.9 Snoring R06.83 Hypersomnia G47.10
[2025-02-14 09:23] VITALS: BP 132/80; PULSE 67; O2SAT 98; BMI 27.6
--- OUTSIDE RECORDS SUMMARY | 2025-02-14 10:01 | XMS_ITS | Clinical Summary ---
Author Organization [facility] ity Address [address] [place] [address] Care Team Providers Care Toll Settlement Clerk Name Role Phone Unavailable Primary Care Provider [...] 5 season) 2025 Influenza Vaccine (#1) 2025 RSV Immunization Adult Patie nts (1 - 1-dose 75+ series) 2044 HIB [...]
--- OUTSIDE RECORDS SUMMARY | 2025-02-14 10:01 | XMS_ITS | Clinical Summary ---
Author Organization [employer] Address [address] [place] [address] [address] [place] [address] Care Team Providers Care Dental Technology Advisor Name Role Phone Unavailable Primary Care Provider [...] Not Detected [facility] Comment: Methodology: Inner Diameter Grinder Tool-Mediated Amplification This assay detects E6/E7 viral messenger RNA (mRNA) from 14 high-risk HPV types (16,18,31,33,35,39,45,51,52,56,58,59,66,68). The analytical performance characteristics of this assay have been determined by [employer]. The modifications have not been cleared or approved by the FDA. This assay has been validated pursuant to the CLIA regulations and is used for clinical purposes. For additional information, please refer to http://education.BuyWithMe/faq/EFI682w2 (This link if provided for information/ educational purposes only.) THIS TEST WAS PERFORMED AT: [facility] [address] [place] [address] [address]LO[address],[place] [address] JOSE MEZA MD 08/15/2021 7:30 AM EDT Armando Smallwood MD HISTORICAL/NON ORDERABLE LABS Fi nal Result [facility] [address] * 3D DIGITAL DAINA SCR MAMMO [...] Most Recently Relevant to Health Maintenance Insurance [facility] C3
== END 2025-02-14 10:14 | disposition home or self-care (01) ==
LOC: HO.HSMS 09:17
PROVIDERS: PCP Family Medicine; Visit Provider Psychiatry & Neurology Neurology
DX: M54.2 Cervicalgia (principal); R51.9 Headache, unspecified; R06.83 Snoring; G47.10 Hypersomnia, unspecified
CPT/HCPCS: 99204

== ENCOUNTER → 2025-02-14 09:16 | Outpatient (BNVA) | payer OTHER, SELFPAY | PROVIDERS: PCP Family Medicine; Visit Provider Psychiatry & Neurology Neurology | DX: M54.2 Cervicalgia (principal); G47.10 Hypersomnia, unspecified; R06.83 Snoring; R51.9 Headache, unspecified | CPT/HCPCS: 99202 ==

== ENCOUNTER 2025-02-21 09:44 | Outpatient (REF) | payer OTHER, SELFPAY ==
--- NOTE | ~2025-02-21 | XR_ITS ---
EXAMINATION: XR CERVICAL SPINE CLINICAL INFORMATION: M54.2 - Cervicalgia COMPARISON: None available. TECHNIQUE: Three-view x-ray cervical spine FINDINGS: The dens is obscured by overlapping occipital bone and teeth. There is straightening of the cervical lordosis. There is no prevertebral soft tissue swelling. C5-6: There is mild to moderate disc space narrowing with endplate osteophytes. C6-7: There is moderate disc space narrowing with endplate osteophytes. Other levels are unremarkable. XR/XR cervical spine 3V IMPRESSION: There is straightening of the expected cervical lordosis. This can be idiopathic, but can also be related to degenerative change, muscle spasm, or posterior soft tissue injury. Mild to moderate degenerative disc disease present at C5-6 and C6-7. Electronically signed by: Marvel Park MD 02/21/2025 10:50 AM EDT
[2025-02-21 10:00] LABS: MANUAL DIFF FLAG NO
[2025-02-21 11:10] LABS: Hematocrit 35.8 % (37.0-47.0); Hemoglobin 11.3 g/dl (12.0-16.0); Imm Gran Abs Auto 0.03 X10*3/uL (0.00-0.03); Imm Gran Pct Auto 0.5 % (0.0-0.4); Lymphocytes Absolute Auto 2.6 X10*3/uL (1.2-4.9); Mean Corpuscular HGB Conc 31.6 g/dl (31.0-35.0); Mean Corpuscular Hemoglobin 25.3 pg (27.0-33.0); Mean Corpuscular Volume 80.3 fL (80.0-98.0); NRBC Abs Auto 0.000 X10*3/uL (0.0-0.012); NRBC Pct Auto 0.0 /100WBC (0.0-0.2); Platelet Count 239 X10*3/uL (160-400); Red Blood Count 4.46 X10*6/uL (4.20-5.50); White Blood Count 6.2 X10*3/uL (4.8-10.8)
--- OUTSIDE RECORDS SUMMARY | 2025-02-21 11:12 | XMS_ITS | Clinical Summary ---
Author Organization [facility] ity Address [address] [place] [address] Care Team Providers Care Securities Settlement Processor Name Role Phone Unavailable Primary Care Provider [...]
--- OUTSIDE RECORDS SUMMARY | 2025-02-21 11:12 | XMS_ITS | Clinical Summary ---
Author Organization [employer] Address [address] [place] [address] [address] [place] [address] Care Team Providers Care Distillery Supervisor Name Role Phone Unavailable Primary Care Provider [...] Not Detected [facility] Comment: Methodology: Diabetes Clinical Manager-Mediated Amplification This assay detects E6/E7 viral messenger RNA (mRNA) from 14 high-risk HPV types (16,18,31,33,35,39,45,51,52,56,58,59,66,68). The analytical performance characteristics of this assay have been determined by [employer]. The modifications have not been cleared or approved by the FDA. This assay has been validated pursuant to the CLIA regulations and is used for clinical purposes. For additional information, please refer to http://education.SNOBSWAP/faq/TLB631q7 (This link if provided for information/ educational purposes only.) THIS TEST WAS PERFORMED AT: [facility] [address] [place] [address] [address],[place] [address] JOSE MEZA MD 08/15/2021 7:30 AM EDT Armando Smallwood MD HISTORICAL/NON ORDERABLE LABS Fi nal Result [facility] [address] * 3D DIGITAL DAINA SCR MAMMO [...] Most Recently Relevant to Health Maintenance Insurance [facility] C3
[2025-02-21 11:46] LABS: Alanine Aminotransferase 16 U/L (0-31); Albumin Level 4.8 g/dL (3.5-5.0); Alkaline Phosphatase 70 U/L (39-117); Anion Gap 12 (12-20); Aspartate Amino Transferase 22 U/L (5-31); Blood Urea Nitrogen 16 mg/dL (9-16); Calcium 9.6 mg/dL (8.4-10.2); Carbon Dioxide 26 mmol/L (22-29); Chloride 108 mmol/L (96-108); Cholesterol 142 mg/dL (<200); Estimated Glomerular Filt Rate > 60; HDL Cholesterol 50 mg/dL (>40); Potassium 4.0 mmol/L (3.3-5.1); Sodium 142 mmol/L (135-145); Total Protein 7.6 g/dL (6.5-8.0); Triglycerides 47 mg/dL (<150)
== END 2025-02-21 09:45 | disposition home or self-care (01) ==
LOC: HO.XRAY 09:44
PROVIDERS: Absent Provider Psychiatry & Neurology Neurology; PCP Family Medicine; Visit Provider Family Medicine
DX: Z00.00 Encounter for general adult medical examination without abnormal findings (principal); M54.2 Cervicalgia
CPT/HCPCS: 36415; 72040; 80053; 80061; 85025

== ENCOUNTER → 2025-02-21 10:29 | Outpatient (BNV) | payer OTHER, SELFPAY | PROVIDERS: Absent Provider Psychiatry & Neurology Neurology; PCP Family Medicine; Visit Provider Radiology Diagnostic Radiology | DX: M50.322 Other cervical disc degeneration at C5-C6 level (principal); M50.323 Other cervical disc degeneration at C6-C7 level | CPT/HCPCS: 72040 ==

== ENCOUNTER 2025-04-06 15:55 | Outpatient (AMB) | payer OTHER, SELFPAY ==
--- NOTE | 2025-04-06 16:07 | A.OFFVIS_ITS ---
Vital Signs 04/06/25 16:08 Height 5 ft 2 in Weight 151 lb 10.848 oz BMI 27.7 BP 151/83 H Blood Pressure Location Lt brachial Position Sitting Pulse 93 Intake Visit Reasons: Gastroesophageal reflux disease (GERD) Intake Note: Patient in office today in follow up of constipation and abd discomfort. CC: Patient reports that her constipation was better while taking Miralax but she stopped taking it about 7 days ago and is back with constipation. She reports that her LQ abdominal pain is a little bit better. Allergies indomethacin (From INDOCIN) Allergy (Unknown, Verified 04/06/25 16:16) RASH HPI HPI Gastroesophageal reflux disease (GERD): Details: Patient is a 54-year-old Portuguese-speaking female with PMH of hyperlipidemia. F/u for chronic constipation, persistent belching, and intermittent nausea. Pt continues to have constipation, managed briefly with MiraLAX for >7 days, discontinued secondary to GI discomfort (epigastric discomfort described as persisting even after BM) and forgetfulness. No reported improvement in symptoms during treatment. Combo stool softener/laxative tab rx not received from pharmacy. Pt has increased water intake; fiber supplement use is inconsistent ( sometimes taken, not daily). Belching remains almost constant; nausea remains intermittent without clear pattern. Weight stable at ~151 lbs without recent loss. No new acute abdominal pain reported; no recent hospitalizations or ED/UC visits related to GI complaints. [facility] Medical History Headache Neck pain Hypersomnia Snoring Belching Fibula fracture Arthritis Surgical History History of lumpectomy Tubal ligation status Family History Father No problems noted. Mother No problems noted. Social History Housing: House Patient Tobacco Use Status: Never used Tobacco e-Cigarette/Vaping Use: Never Used Second Hand Smoke Exposure: No service: No Current occupational status: unemployed and disabled Current occupation: right handed Current occupational exposures/hazards: No Cognitive needs: No Hearing needs: No Vision needs: Yes Female Reproductive History Menstrual Age of Menarche: 9 Review of Systems Const Reports as per [facility] ENT Reports as per HPI Card Reports as per [facility] Resp Reports as per [facility] GI Reports as per [facility] Reports as per HPI Physical Exam Vital Signs: Last Vital Signs Pulse 93 04/06/25 16:08 BP 151/83 H 04/06/25 16:08 BMI result Body Mass Index 27.7 Const General: healthy appearing, no acute distress and well developed Nutritional Appearance: average body habitus Orientation/consciousness: patient oriented x3 HEENT Head: Yes normal to inspection, Yes normocephalic and Yes atraumatic Face and sinus: Yes normal facial exam Eyes General: appearance normal, both eyes and all related structures Neck Neck: Yes normal visual inspection Resp Effort & Inspection: normal respiratory effort, able to speak in complete sentences, no tracheal deviation and symmetric chest movement Cardio Jugular venous distension: no JVD GI Inspection: Yes normal to inspection and No distended Palpation (GI): Soft to palpation, not firm, nontender and No hepatosplenomegaly present Auscultation: normal bowel sounds Neuro General: patient oriented x3 Gait exam (Neuro): Normal gait present Psych Appearance: grossly normal Mental Status: mental status grossly normal Speech and movement: Normal speech and movement present Affect: normal affect Attitude: cooperative Thought process: Normal thought process present Thought content: Normal thought content present Insight: Good insight present (Psych) Judgement: Good judgement present (Psych) Assessment & Plan Assessment & Plan (1) Belching: Code(s): R14.2 - Eructation Category: Medical Plan: Persistent, not improved with prior constipation therapy, no current epigastric pain. Negative H. pylori; structural etiology not ruled out; ongoing symptoms despite attempted conservative therapy. - Additional testing: - RUQ abd u/s ordered (gallbladder eval). - EGD to be performed concurrent with colonoscopy. - Medications: - Trial of lactulose may address both constipation and some bloating. - Lifestyle Recommendations: - Low-FODMAP dietary info (Portuguese-language materials to be provided). - Referrals / Coordination of Care: - None pending results of endoscopic and imaging workup. - Follow-Up Plan: - PRN f/u for alarm symptoms; otherwise after imaging/endoscopy results. (2) Constipation: Code(s): K59.00 - Constipation, unspecified Category: Medical Qualifiers: Constipation type: unspecified constipation type Qualified Code(s): K59.00 - Constipation, unspecified Plan: Worsening?persistent symptoms, intolerant of MiraLAX, prior combo agent not obtained, inconsistent fiber intake, suboptimal compliance with recommendations. Additional testing: - N/A at this time?pending response to new regimen and adequacy of bowel prep for colonoscopy. Medications: - Initiate lactulose soln, daily (pt instructed to titrate to avoid loose stools). - Prescribe docusate stool softener alone as alternative (if tolerated). - Extended bowel prep for colonoscopy: 2 bisacodyl tabs qhs x 5 days pre- procedure + standard 4L PEG solution prep day before.. Lifestyle Recommendations: - Reinforce routine daily fiber intake (supplement + dietary). - Hydration emphasized. - Provided pt with handout on low-FODMAP diet. Referrals / Coordination of Care: - Colonoscopy/EGD combined?orders updated; awaiting scheduling. Follow-Up Plan: - Reassess post-colonoscopy/EGD; earlier if worsening constipation or unable to complete bowel prep. Plan Follow-up after endoscopy or sooner as needed Time: I spent a total of 30 minutes on the date of encounter which includes: Preparing to see the patient (reviewed previous documentation, test results and medical history) Performing a medically appropriate exam and/or evaluation Ordering medications, tests, and procedures Documenting clinical information in the health record Orders: Orders US abdomen complete 04/06/25 R11.0 - Nausea, R14.2 - Eructation Medications: New docusate sodium Take one tablet at bedtime 100 mg PO BEDTIME 90 caps 1RF constipation lactulose 10 grams (15 mL) PO DAILY 3,785 mL 1RF bisacodyl Take two tablets at bedtime, starting five nights before colonoscopy 10 mg (2 x 5 mg) PO BEDTIME 10 tabs 0RF peg 3350-electrolytes 236-22.74-6.74 -5.86 gram until fecal effluent is clear 240 mL PO ONCE 4,000 mL 0RF simethicone (Gas Relief (simethicone)) per colonoscopy prep instructions 500 mg (4 x 125 mg) PO ONCE 4 caps 0RF abdominal distention Discontinued polyethylene glycol 3350 (Miralax) Take 17G (one cap full) daily with 8oz of water Discontinued Reason: Patient no longer taking 17 grams PO DAILY 30 days 510 grams 2RF constipation sennosides-docusate sodium 8.6-50 mg (Senna Plus) Take two tablets at bedtime Discontinued Reason: Insurance Denied 2 tab-caps (2 x 8.6-50 mg) PO BEDTIME 180 caps 1RF simethicone (Gas Relief (simethicone)) per colonoscopy prep instructions Discontinued Reason: Duplicate 125 mg PO ONCE 4 caps 0RF abdominal distention Coding Level of Care Code Established Pt Est Pt Level 3 (32315) Patient Type Established Diagnoses Belching R14.2 Constipation, unspecified constipation type K59.00 Constipation type: unspecified constipation type
[2025-04-06 16:08] VITALS: BP 151/83; PULSE 93; BMI 27.7
--- OUTSIDE RECORDS SUMMARY | 2025-04-07 04:32 | XMS_ITS | Clinical Summary ---
Author Organization [employer] Address [address] [place] [address] [address] [place] [address] Care Team Providers Care Pacs Administrator Name Role Phone Unavailable Primary Care [...] Not Detected [facility] Comment: Methodology: Pulp Mill Team Leader-Mediated Amplification This assay detects E6/E7 viral messenger RNA (mRNA) from 14 high-risk HPV types (16,18,31,33,35,39,45,51,52,56,58,59,66,68). The analytical performance characteristics of this assay have been determined by [employer]. The modifications have not been cleared or approved by the FDA. This assay has been validated pursuant to the CLIA regulations and is used for clinical purposes. For additional information, please refer to http://education.Full[employer]/faq/SOB209e1 (This link if provided for information/ educational purposes only.) THIS TEST WAS PERFORMED AT: [facility] [address] [place] [address] [address] [address] JOSE MEZA MD 08/15/2021 7:30 AM EDT Armando Smallwood MD HISTORICAL/NON ORDERABLE LABS Fi nal Result [facility] [address] * 3D DIGITAL DAINA SCR MAMMO [...] Most Recently Relevant to Health Maintenance Insurance [facility] C3
== END 2025-04-06 16:41 | disposition home or self-care (01) ==
LOC: HO.HGI 15:56
PROVIDERS: PCP Family Medicine; Visit Provider Nurse Practitioner Family
DX: R14.2 Eructation (principal); K59.00 Constipation, unspecified
CPT/HCPCS: 99213

== ENCOUNTER → 2025-04-06 15:55 | Outpatient (BNVA) | payer OTHER, SELFPAY | PROVIDERS: PCP Family Medicine; Visit Provider Nurse Practitioner Family | DX: R14.2 Eructation (principal); R11.0 Nausea; K59.00 Constipation, unspecified | CPT/HCPCS: 99212 ==